=== PATIENT | female | born 1945 | race Caucasian/White ===

== ENCOUNTER 2017-01-04 23:17 | Emergency (ER) | payer MEDICARE, BC ==
[2017-01-04] MEDS ORDERED: diphenhydrAMINE 50 MG/ML SDV IVPUSH ONE (23:58)
[2017-01-04] MEDS ORDERED: methylPREDNISolone Sodium Succinate 125 MG/2 ML SDV IVPUSH ONE (23:58)
--- NOTE | 2017-01-05 00:28 | EDM.PDOC ---
<Leon Garcia - Last Filed: 01/05/17 06:45> ED HPI DIZZINESS - General Chief Complaint: Syncope Stated Complaint: VERTIGO Time Seen by Provider: 01/04/17 23:45 Source: Reports: Patient, EMS, Family Exam Limitations: Reports: No limitations - History of Present Illness INITIAL COMMENTS - FREE TEXT/NARRATIVE: 71-year-old female who has a chronic history of recurring vertigo was asymptomatic the last several days but tonight at 9:30 in the evening she had a fairly sudden onset of vertigo. She has some maneuvers as she tries that she is learning through physical therapy but they were unsuccessful so she called the ambulance. She also had some mild intermittent chest pressure over the past few weeks. She mentioned this to the ambulance crew in route so an EKG was done which was normal. Vitals were normal. She was also given 4 mg of Zofran IV. Timing/Duration: Reports: Hour(s): (Symptoms have been less than an hour) Quality: Reports: spinning, vertigo Severity: moderate Worsens With: Reports: head movement, sitting Context, Dizziness: Denies: recent illness, recent trauma, alcohol abuse, new medications Associated Symptoms: Reports: decreased ability to walk, off balance, unable to sit up - Related Data Allergies/ADRs: Allergies Allergy/AdvReac Type Severity Reaction Status Date / Time clopidogrel Allergy Unknown Rash Verified 01/05/17 00:38 erythromycin base Allergy Unknown Rash Verified 01/05/17 00:38 [Erythromycin Base] levofloxacin [From Levaquin] Allergy Muscle Verified 01/05/17 00:38 Aches Sulfa (Sulfonamide AdvReac Unknown Rash Verified 01/05/17 00:38 Antibiotics) Home Meds: Home Meds Albuterol [Ventolin HFA] 2 puff IH ASDIRECTED PRN 01/05/17 [History] Ascorbic Acid [Vitamin C] 500 mg PO BID 01/05/17 [History] Aspirin [Halfprin] 81 mg PO DAILY 01/05/17 [History] Calcium Carbonate [Calcium] 1,000 mg PO DAILY 01/05/17 [History] Cholecalciferol (Vitamin D3) [Vitamin D3] 1,000 unit PO DAILY 01/05/17 [History] Levothyroxine 75 mcg PO ACBREAKFAST 01/05/17 [History] Multivitamin-Min/Iron/FA/Vit K [Multi-Day Plus Minerals Tablet] 1 each PO DAILY 01/05/17 [History] [place]-3/DHA/Epa/Fish Oil [[place]-3 EC Softgel] 1 each PO DAILY 01/05/17 [History] [place]-3/DHA/Epa/Fish Oil [[place]-3 Fish Oil 1,000 MG Sfgl] 1,000 mg PO DAILY [History] Pindolol [Visken] 5 mg PO DAILY 01/05/17 [History] Triamcinolone Acetonide [Triamcinolone Acetonide 0.1% Crm] 15 gm TOP BID PRN [History] Vitamin B Complex/Folic Acid [Vitamin B-50 Complex] 0.4 mg PO DAILY 01/05/17 [ History] Past Medical History - Past Health History Medical/Surgical History: Denies Medical/Surgical History Other Cardiovascular History: patch on heart december 2012 Other Genitourinary History: pt ? having UTI Other OB/BYN History: hx of hystectomy - Past Surgical History Other Cardiovascular Surgeries/Procedures: patch on heart 2012 Social & Family History - Tobacco Use Smoking Status *Q: Never Smoker ED ROS GENERAL - Review of Systems Review Of Systems: See Below Constitutional: Reports: malaise. Denies: fever, chills Respiratory: Denies: Shortness of Breath Cardiovascular: Reports: Chest pain (She has some intermittent upper abdominal and lower chest pressure that lasts 1 to 2 minutes several times daily) Endocrine: Denies: fatigue GI/Abdominal: Reports: Nausea, Vomiting. Denies: Abdominal pain : Reports: no symptoms Neurological: Reports: Dizziness. Denies: Headache, Seizure, Syncope Psychiatric: Reports: No symptoms ED EXAM, DIZZINESS - Physical Exam Exam: See Below Exam Limited By: No limitations General Appearance: alert, mild distress (Looks very uncomfortable, shielding her eyes) Eye Exam: bilateral eye: other ( I can not produce any nystagmus with lateral gaze) Throat/Mouth: Normal inspection Head Exam: atraumatic Vertigo: worsens with head to R Neck: normal inspection Respiratory/Chest: no respiratory distress, lungs clear Cardiovascular: regular rate, rhythm GI/Abdominal: soft, non tender Neurological: alert Psychiatric: normal affect, normal mood Skin Exam: Warm, Dry Course - Orders/Labs/Meds Orders: Active Orders 24 hr Category Date Time Status EKG Documentation Completion [RC] ASDIRECTED Care 01/04/17 23:41 Active EKG 12 Lead [EK] Routine Ther 01/04/17 23:41 Ordered Labs: Laboratory Tests 01/04/17 01/04/17 Range/Units 23:41 23:41 WBC 6.0 (4.5-11.0) K/uL RBC 4.56 (3.30-5.50) M/uL Hgb 13.8 (12.0-15.0) g/dL Hct 39.7 (36.0-48.0) % MCV 87 (80-98) fL MCH 30 (27-31) pg MCHC 35 (32-36) % Plt Count 252 (150-400) K/uL Neut % (Auto) 56 (36-66) % Lymph % (Auto) 34 (24-44) % [place] % (Auto) 8 H (2-6) % Eos % (Auto) 2 (2-4) % Baso % (Auto) 0 (0-1) % Sodium 142 (140-148) mmol/L Potassium 3.5 L (3.6-5.2) mmol/L Chloride 105 (100-108) mmol/L Carbon Dioxide 24 (21-32) mmol/L Anion Gap 16.5 H (5.0-14.0) mmol/L BUN 21 H (7-18) mg/dL Creatinine 1.1 H (0.6-1.0) mg/dL Est Cr Clr Drug Dosing TNP Estimated GFR (MDRD) 49 L (>60) Glucose 122 H (74-106) mg/dL Calcium 8.6 (8.5-10.1) mg/dL Troponin I < 0.017 (0.000-0.056) ng/mL Meds: Medications Discontinued Medications Generic Name Dose Route Start Last Admin Trade Name Freq PRN Reason Stop Dose Admin Diphenhydramine HCl 25 mg 01/04/17 23:58 01/05/17 00:22 Benadryl IVPUSH 01/04/17 23:59 25 mg ONETIME ONE Administration Methylprednisolone Sodium Succinate 62.5 mg 01/04/17 23:58 01/05/17 00:19 Solu-Medrol IVPUSH 01/04/17 23:59 62.5 mg ONETIME ONE Administration - Re-Assessments/Exams Free Text/Narrative Re-Assessment/Exam: 01/05/17 00:27 A second EKG was done which was unremarkable labs were drawn and an Eppley maneuver was attempted which was unsuccessful. She was then given 62.5 mg Solu- Medrol IV and 25 mg of Benadryl IV, CBC BMP and troponin were drawn. Labs were unremarkable. 01/05/17 06:45 Patient slept soundly for 3 hours, when awoke was feeling better and was able to go to the bathroom without assistance but still felt very anxious about her symptoms returning without a physical therapy treatment. She did not want to be discharged until she had a chance to be seen by physical therapy. Apparently she is well-known by Dr. Clay and Dr. Mackenzie, both are coming on shift in the next hour and I will ask them to see if they can contact physical therapy for a quick assessment. Departure - Departure Disposition: Home, Self-Care 01 Clinical Impression: Vertigo Referrals: Mery Gracia MD [Primary Care Provider] - Forms: ED Department Discharge Care Plan Goals: low activity, gradually increase activity. cont same meds. <Dinah Mackenzie - Last Filed: 01/05/17 08:56> Course - Re-Assessments/Exams Free Text/Narrative Re-Assessment/Exam: 01/05/17 08:53 Pt came and worked with the pt and she is feeling better. She was able to eat breakfast. She is able to be up and about without difficulty Departure - Departure Time of Disposition: 08:55 Condition: fair
== END 2017-01-05 09:28 | disposition home or self-care (01) ==
LOC: JP.ED 23:17
DX: R42 Dizziness and giddiness (principal); Z79.82 Long term (current) use of aspirin; Z79.899 Other long term (current) drug therapy; Z90.710 Acquired absence of both cervix and uterus; Z88.1 Allergy status to other antibiotic agents; Z88.2 Allergy status to sulfonamides; Z88.8 Allergy status to other drugs, medicaments and biological substances
CPT/HCPCS: 36415; 80048; 84484; 85025; 93005; 96374; 96375; 99284; J1200; J2930; 93010

== ENCOUNTER 2017-07-14 18:01 | Emergency (ER) | payer BC, MEDICARE, OTHER ==
[2017-07-14 20:05] VITALS: BP 146/82
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
== END 2017-07-14 21:05 | disposition home or self-care (01) ==
LOC: JP.ED 18:01
DX: S46.911A Strain of unspecified muscle, fascia and tendon at shoulder and upper arm level, right arm, initial encounter (principal); M19.90 Unspecified osteoarthritis, unspecified site; F32.9 Major depressive disorder, single episode, unspecified; E03.9 Hypothyroidism, unspecified; Z90.49 Acquired absence of other specified parts of digestive tract; Z87.440 Personal history of urinary (tract) infections; Z90.710 Acquired absence of both cervix and uterus; Z79.82 Long term (current) use of aspirin; Z79.899 Other long term (current) drug therapy; Z88.2 Allergy status to sulfonamides; Z88.1 Allergy status to other antibiotic agents; Z88.8 Allergy status to other drugs, medicaments and biological substances; V89.2XXA Person injured in unspecified motor-vehicle accident, traffic, initial encounter; Y92.410 Unspecified street and highway as the place of occurrence of the external cause
CPT/HCPCS: 99283

== ENCOUNTER 2018-03-30 20:37 | Emergency (ER) | payer MEDICARE, BC ==
[2018-03-30 21:08] VITALS: BP 154/78
--- NOTE | 2018-03-30 21:19 | EDM.PDOC ---
ED HPI GENERAL MEDICAL PROBLEM - General Chief Complaint: Abdominal Pain Stated Complaint: PAIN ON LEFT SIDE BELOW THE RIBS Time Seen by Provider: 03/30/18 21:17 Source of Information: Reports: Patient, Family, RN Notes Reviewed History Limitations: Reports: No Limitations - History of Present Illness INITIAL COMMENTS - FREE TEXT/NARRATIVE: 72-year-old female resents to the emergency department today complaint of abdominal pain, she states the pain is in the epigastric left upper quadrant region has been ongoing for 2 days she's had poor appetite but no other symptoms nausea vomiting chest pain shortness of breath no other or GI symptoms does have a history of surgical procedures of hysterectomy and appendectomy - Related Data Allergies Allergy/AdvReac Type Severity Reaction Status Date / Time clopidogrel Allergy Unknown Rash Verified 03/30/18 21:02 erythromycin base Allergy Unknown Rash Verified 03/30/18 21:02 [Erythromycin Base] levofloxacin [From Levaquin] Allergy Muscle Verified 03/30/18 21:02 Aches Sulfa (Sulfonamide AdvReac Unknown Rash Verified 03/30/18 21:02 Antibiotics) Home Meds: Home Meds Albuterol [Ventolin HFA] 2 puff IH ASDIRECTED PRN 01/05/17 [History] Ascorbic Acid [Vitamin C] 500 mg PO BID 01/05/17 [History] Aspirin [Halfprin] 81 mg PO DAILY 01/05/17 [History] Calcium Carbonate [Calcium] 1,000 mg PO DAILY 01/05/17 [History] Cholecalciferol (Vitamin D3) [Vitamin D3] 1,000 unit PO DAILY 01/05/17 [History] Levothyroxine 75 mcg PO ACBREAKFAST 01/05/17 [History] Multivitamin-Min/Iron/FA/Vit K [Multi-Day Plus Minerals Tablet] 1 each PO DAILY 01/05/17 [History] [place]-3/DHA/Epa/Fish Oil [[place]-3 EC Softgel] 1 each PO DAILY 01/05/17 [History] [place]-3/DHA/Epa/Fish Oil [[place]-3 Fish Oil 1,000 MG Sfgl] 1,000 mg PO DAILY [History] Pindolol [Visken] 5 mg PO DAILY 01/05/17 [History] Triamcinolone Acetonide [Triamcinolone Acetonide 0.1% Crm] 15 gm TOP BID PRN [History] Vitamin B Complex/Folic Acid [Vitamin B-50 Complex] 0.4 mg PO DAILY 01/05/17 [ History] Past Medical History HEENT History: Reports: Impaired Vision Cardiovascular History: Reports: Other (See Below) Other Cardiovascular History: ASD closure Genitourinary History: Reports: UTI, Recurrent Other Genitourinary History: pt ? 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: hx of hystectomy Musculoskeletal History: Reports: Arthritis Neurological History: Reports: Migraines, Vertigo Psychiatric History: Reports: Depression Endocrine/Metabolic History: Reports: Hypothyroidism Hematologic History: Reports: Blood Transfusion(s) - Infectious Disease History Infectious Disease History: Reports: Chicken Pox, Measles, Mumps, Rubella - Past Surgical History HEENT Surgical History: Reports: Detached Retina Other Cardiovascular Surgeries/Procedures: ASD closure- 2012 GI Surgical History: Reports: Appendectomy, Colonoscopy Female Surgical History: Reports: Hysterectomy Social & Family History - Tobacco Use Smoking Status *Q: Never Smoker - Caffeine Use Caffeine Use: Reports: None ED ROS GENERAL - Review of Systems Review Of Systems: See Below Constitutional: Reports: No Symptoms HEENT: Reports: No Symptoms Respiratory: Reports: No Symptoms Cardiovascular: Reports: No Symptoms GI/Abdominal: Reports: Abdominal Pain, Flatus. Denies: Constipation, Diarrhea, Nausea, Vomiting : Reports: No Symptoms Musculoskeletal: Reports: No Symptoms Skin: Reports: No Symptoms Neurological: Reports: No Symptoms ED EXAM, GI/ABD - Physical Exam Exam: See Below Text/Narrative:: General: Female not in any distress, alert and oriented x3 HEENT: head is atraumatic normocephalic, eyes pupils equal round reactive to light, sclera clear no conjunctivitis appreciated. Ears tympanic membranes clear and ruiz landmarks and light reflex are present bilaterally canals are clear. Nose no septal deviation, nares are clear, no blood present. Mouth mucosa is moist and pink no erythema or exudate noted in soft palate, tongue is midline uvula is midline, dentition is intact. Neck: Supple no thyromegaly no tracheal deviation. Nodes: Cervical nodes subclavicular nodes nontender no palpable lymphadenopathy noted. Lungs: clear to auscultation bilaterally with symmetrical respirations, no adventitious noise appreciated. CV: Regular rate and rhythm S1 and S2 appreciated no murmurs rubs or gallops noted. Abdomen: Soft, mild tenderness epigastric region, no palpable masses or organomegaly appreciated, no distention no guarding bowel sounds are present, . Neuro: Cranial nerves II through XII grossly intact Skin: Warm and dry, intact Extremities: No lower extremity edema appreciated, Course - Vital Signs Last Recorded V/S: Last Vital Signs Temp 96.6 F 03/30/18 21:07 Pulse 81 03/30/18 21:07 Resp 14 03/30/18 21:07 BP 154/78 H 03/30/18 21:07 Pulse Ox 97 03/30/18 21:07 - Orders/Labs/Meds Orders: Active Orders 24 hr Category Date Time Status Peripheral IV Care [RC] . DIRECTED Care 03/30/18 23:25 Active Abdomen Pelvis w Cont [CT] Stat Exams 03/30/18 23:26 Taken CULTURE URINE [RM] Urgent Lab 03/30/18 23:00 Received UA W/MICROSCOPIC [URIN] Urgent Lab 03/30/18 21:16 Ordered Iopamidol [Isovue-300 (61%)] Med 03/30/18 23:45 Active 100 ml IV . DIRECTED Sodium Chloride 0.9% [Normal Saline] 80 ml Med 03/30/18 23:45 Active IV ASDIRECTED Sodium Chloride 0.9% [Saline Flush] Med 03/30/18 23:24 Active 10 ml FLUSH ASDIRECTED PRN Peripheral IV Insertion Adult [OM.PC] Urgent Oth 03/30/18 23:24 Ordered Medication Orders Sodium Chloride (Normal Saline) 80 mls @ 3 mls/sec IV ASDIRECTED SUELLEN Last Admin: 03/30/18 23:53 Dose: 3 mls/sec Iopamidol (Isovue-300 (61%)) 100 ml IV . DIRECTED SUELLEN Last Admin: 03/30/18 23:53 Dose: 100 ml Sodium Chloride (Saline Flush) 10 ml FLUSH ASDIRECTED PRN PRN Reason: Keep Vein Open Last Admin: 03/30/18 23:53 Dose: 10 ml Labs: Laboratory Tests 03/30/18 03/30/18 03/30/18 Range/Units 21:16 21:28 21:28 WBC 8.9 (4.5-11.0) K/uL RBC 4.49 (3.30-5.50) M/uL Hgb 13.6 (12.0-15.0) g/dL Hct 39.6 (36.0-48.0) % MCV 88 (80-98) fL MCH 30 (27-31) pg MCHC 34 (32-36) % Plt Count 252 (150-400) K/uL Neut % (Auto) 66 (36-66) % Lymph % (Auto) 21 L (24-44) % [place] % (Auto) 11 H (2-6) % Eos % (Auto) 2 (2-4) % Baso % (Auto) 0 (0-1) % Sodium 137 L (140-148) mmol/L Potassium 4.0 (3.6-5.2) mmol/L Chloride 103 (100-108) mmol/L Carbon Dioxide 26 (21-32) mmol/L Anion Gap 12.0 (5.0-14.0) mmol/L BUN 15 (7-18) mg/dL Creatinine 0.9 (0.6-1.0) mg/dL Est Cr Clr Drug Dosing 50.23 mL/min Estimated GFR (MDRD) > 60 (>60) Glucose 100 (74-106) mg/dL Lactic Acid (0.4-2.0) mmol/L Calcium 8.9 (8.5-10.1) mg/dL Total Bilirubin 0.7 (0.2-1.0) mg/dL AST 18 (15-37) U/L ALT 27 (12-78) U/L Alkaline Phosphatase 68 (46-116) U/L Troponin I < 0.017 (0.000-0.056) ng/mL Total Protein 7.0 (6.4-8.2) g/dL Albumin 3.3 L (3.4-5.0) g/dL Globulin 3.7 H (2.3-3.5) g/dL Albumin/Globulin Ratio 0.9 L (1.2-2.2) Lipase 102 (73-393) U/L Urine Color Yellow Urine Appearance Slightly cloudy Urine pH 7.0 (4.5-8.0) Ur Specific [place] 1.010 (1.008-1.030) Urine Protein Negative (NEGATIVE) mg/dL Urine Glucose (UA) Normal (NEGATIVE) mg/dL Urine Ketones Negative (NEGATIVE) mg/dL Urine Occult Blood Negative (NEGATIVE) Urine Nitrite Negative (NEGATIVE) Urine Bilirubin Negative (NEGATIVE) Urine Urobilinogen Normal (NORMAL) mg/dL Ur Leukocyte Esterase Moderate (NEGATIVE) Urine RBC 0-5 (0-5) Urine WBC 5-10 H (0-5) Ur Epithelial Cells Few Amorphous Sediment Not seen Urine Bacteria Many Urine Mucus Not seen 03/30/18 Range/Units 21:28 WBC (4.5-11.0) K/uL RBC (3.30-5.50) M/uL Hgb (12.0-15.0) g/dL Hct (36.0-48.0) % MCV (80-98) fL MCH (27-31) pg MCHC (32-36) % Plt Count (150-400) K/uL Neut % (Auto) (36-66) % Lymph % (Auto) (24-44) % [place] % (Auto) (2-6) % Eos % (Auto) (2-4) % Baso % (Auto) (0-1) % Sodium (140-148) mmol/L Potassium (3.6-5.2) mmol/L Chloride (100-108) mmol/L Carbon Dioxide (21-32) mmol/L Anion Gap (5.0-14.0) mmol/L BUN (7-18) mg/dL Creatinine (0.6-1.0) mg/dL Est Cr Clr Drug Dosing mL/min Estimated GFR (MDRD) (>60) Glucose (74-106) mg/dL Lactic Acid 1.0 (0.4-2.0) mmol/L Calcium (8.5-10.1) mg/dL Total Bilirubin (0.2-1.0) mg/dL AST (15-37) U/L ALT (12-78) U/L Alkaline Phosphatase (46-116) U/L Troponin I (0.000-0.056) ng/mL Total Protein (6.4-8.2) g/dL Albumin (3.4-5.0) g/dL Globulin (2.3-3.5) g/dL Albumin/Globulin Ratio (1.2-2.2) Lipase (73-393) U/L Urine Color Urine Appearance Urine pH (4.5-8.0) Ur Specific [place] (1.008-1.030) Urine Protein (NEGATIVE) mg/dL Urine Glucose (UA) (NEGATIVE) mg/dL Urine Ketones (NEGATIVE) mg/dL Urine Occult Blood (NEGATIVE) Urine Nitrite (NEGATIVE) Urine Bilirubin (NEGATIVE) Urine Urobilinogen (NORMAL) mg/dL Ur Leukocyte Esterase (NEGATIVE) Urine RBC (0-5) Urine WBC (0-5) Ur Epithelial Cells Amorphous Sediment Urine Bacteria Urine Mucus Meds: Medications Generic Name Dose Route Start Last Admin Trade Name Freq PRN Reason Stop Dose Admin Sodium Chloride 80 mls @ 3 mls/sec 03/30/18 23:45 03/30/18 23:53 Normal Saline IV 3 mls/sec ASDIRECTED SUELLEN Administration Iopamidol 100 ml 03/30/18 23:45 03/30/18 23:53 Isovue-300 (61%) IV 100 ml . DIRECTED SUELLEN Administration Sodium Chloride 10 ml 03/30/18 23:24 03/30/18 23:53 Saline Flush FLUSH 10 ml ASDIRECTED PRN Administration Keep Vein Open Discontinued Medications Generic Name Dose Route Start Last Admin Trade Name Freq PRN Reason Stop Dose Admin Lactated Ringer's 1,000 mls @ 999 mls/hr 03/30/18 23:24 03/30/18 23:54 Ringers, Lactated IV 03/31/18 00:24 999 mls/hr BOLUS ONE Administration Departure - Departure Time of Disposition: 00:56 Disposition: Home, Self-Care 01 Condition: Fair Clinical Impression: Left upper quadrant abdominal mass - Discharge Information Referrals: PCP,None [Primary Care Provider] - Forms: ED Department Discharge Additional Instructions: Please call to the clinic on Sunday for an appointment time with Dr. Salazar, call return to the emergency department worsening of symptoms - My Orders Last 24 Hours: My Active Orders 03/30/18 21:16 UA W/MICROSCOPIC [URIN] Urgent 03/30/18 23:00 CULTURE URINE [RM] Urgent 03/30/18 23:24 Sodium Chloride 0.9% [Saline Flush] 10 ml FLUSH ASDIRECTED PRN Peripheral IV Insertion Adult [OM.PC] Urgent 03/30/18 23:25 Peripheral IV Care [RC] . DIRECTED 03/30/18 23:26 Abdomen Pelvis w Cont [CT] Stat 03/30/18 23:45 Iopamidol [Isovue-300 (61%)] 100 ml IV . DIRECTED Sodium Chloride 0.9% [Normal Saline] 80 ml IV ASDIRECTED - Assessment/Plan Last 24 Hours: My Active Orders 03/30/18 21:16 UA W/MICROSCOPIC [URIN] Urgent 03/30/18 23:00 CULTURE URINE [RM] Urgent 03/30/18 23:24 Sodium Chloride 0.9% [Saline Flush] 10 ml FLUSH ASDIRECTED PRN Peripheral IV Insertion Adult [OM.PC] Urgent 03/30/18 23:25 Peripheral IV Care [RC] . DIRECTED 03/30/18 23:26 Abdomen Pelvis w Cont [CT] Stat 03/30/18 23:45 Iopamidol [Isovue-300 (61%)] 100 ml IV . DIRECTED Sodium Chloride 0.9% [Normal Saline] 80 ml IV ASDIRECTED Plan: Assessment Acuity = acute Site and laterality = left upper quadrant mass Etiology = unclear etiology Manifestations = abdominal pain Location of injury = Home Lab values = CBC, CMP, urinalysis unremarkable CT scan describes a mass above Plan I did review lab work and CT scan results with her I reviewed options with her she would like to follow-up with Dr. Salazar general surgery for discussion of options for diagnosis, therefore she will call to the clinic for an appointment time on Sunday This note was dictated using [employer] voice recognition software please call with any questions on syntax or grammar.
[2018-03-30] MEDS ORDERED: Lactated Ringers 1,000 ML IV ONE (23:24)
[2018-03-30] MEDS ORDERED: Sodium Chloride 0.9% 10 ML Syringe FLUSH PRN (23:24)
[2018-03-30] MEDS ORDERED: Sodium Chloride 0.9% 80 ML IV SCH (23:45)
[2018-03-30] MEDS ORDERED: Iopamidol 612 MG/ML 100 ML Bottle IV SCH (23:45)
== END 2018-03-31 01:00 | disposition home or self-care (01) ==
LOC: JP.ED 20:37
DX: R10.12 Left upper quadrant pain (principal); E03.9 Hypothyroidism, unspecified; Z88.2 Allergy status to sulfonamides; Z88.1 Allergy status to other antibiotic agents; Z88.8 Allergy status to other drugs, medicaments and biological substances; Z79.82 Long term (current) use of aspirin; Z79.899 Other long term (current) drug therapy
CPT/HCPCS: 36415; 74177; 80053; 81001; 83605; 83690; 84484; 85025; 87086; 87088; 87186; 96360; 99283; 99284; J7030; J7050; J7120; Q9967

== ENCOUNTER 2018-04-02 07:53 | Day surgery (SDC) | payer MEDICARE, BC ==
[2018-04-02] MEDS ORDERED: Dextrose 5%-Lactated Ringers 1,000 ML IV SCH (08:30)
[2018-04-02] MEDS ORDERED: Propofol 200 MG/20 ML SDV ONE (09:01)
[2018-04-02] MEDS ORDERED: Glycopyrrolate 0.2 MG/ML 2 ML SDV IVPUSH ONE (09:30)
[2018-04-02 11:05] VITALS: BP 138/83
--- NOTE | 2018-04-03 14:42 | OR ---
DATE OF PROCEDURE: 04/02/2018 PREOPERATIVE DIAGNOSIS: Large perigastric mass. POSTOPERATIVE DIAGNOSES: 1. Gastric ulcer along mid-greater curvature consistent with adjacent gastric mass. 2. Mild antral gastritis. OPERATIVE PROCEDURE: Upper GI endoscopy with antral biopsies for CLOtest. ANESTHESIA: IV sedation. INDICATION FOR PROCEDURE: The patient presented over the weekend in the emergency room with upper abdominal pain and was noted to have a mass in the range of 6 to 8 cm, located along the area to the left of the mid-greater curvature of the stomach. Radiologically, this is suspicious for a gastrointestinal stromal tumor. The only viscera that had directly lysed on, is the stomach at that level. An upper endoscopy is to be performed to evaluate the situation. Potential risks including bleeding and perforation were discussed, and the patient wishes to proceed. DETAILS OF PROCEDURE: The patient was taken to the operating room and placed in a left lateral decubitus position. IV sedation was administered, after which the upper GI endoscope was passed orally through the length of the stomach and into the pyloric sphincter and roughly second portion of the duodenum. Findings included normal esophagus and EG junction. Within the stomach, there was some scattered old blood and medial pressure was obvious on the greater curvature of the stomach and consistent with what was seen on the CT scan. There was a central area of ulcer present also in that area, suggestive of the mass that was seen on the CT scan likely arising from the stomach or perhaps eroding into it. Because of the bleeding and the fact that the biopsy would not change the management at this point, no biopsy was obtained there. The patient did have some mild antral gastritis and biopsy was obtained there for CLOtest for H. pylori. Minimal bleeding from the biopsy site was seen, and the procedure then concluded. The patient was taken to the recovery room in a satisfactory condition. Joseph Salazar MD Job #: [id number]
== END 2018-04-02 11:29 | disposition home or self-care (01) ==
LOC: JP.SDS 07:53
PROVIDERS: ATTEND Surgery
DX: K25.9 Gastric ulcer, unspecified as acute or chronic, without hemorrhage or perforation (principal); K29.70 Gastritis, unspecified, without bleeding; K31.89 Other diseases of stomach and duodenum; J45.909 Unspecified asthma, uncomplicated
CPT/HCPCS: 36415; 43239; 86850; 86900; 86901; 87081; J2704; J7042; J3490

== ENCOUNTER 2018-04-05 09:15 | Inpatient (IN) | payer MEDICARE, BC ==
[~2018-04-05 09:15] MED LIST: Dexamethasone 4 MG/ML SDV ONE; Glycopyrrolate 0.2 MG/ML 5 ML MDV ONE; Neostigmine Methylsulfate 1 MG/ML 5 ML Syringe ONE; Ondansetron 4 MG/2 ML SDV ONE; Propofol 200 MG/20 ML SDV ONE; Rocuronium 50 MG/5 ML Vial ONE; Succinylcholine 200 MG/10 ML MDV ONE
[2018-04-05] MEDS ORDERED: Dextrose 5%-Lactated Ringers 1,000 ML IV SCH ×2 (09:41→17:15)
[2018-04-05] MEDS ORDERED: Acetaminophen 500 MG Tab PO SCH (09:45)
[2018-04-05] MEDS ORDERED: Scopolamine 1.5 MG Transdermal Patch TOP SCH (10:15)
[2018-04-05] MEDS ORDERED: Ropivacaine 36 ML, Dexamethasone 8 MG, EPINEPHrine 0.4 MG, Sodium Chloride 0.9% 41.6 ML NERVRT SCH ×4 (10:30)
[2018-04-05] MEDS ORDERED: Ketamine 500 MG/5 ML MDV IV SCH (10:30)
[2018-04-05] MEDS ORDERED: Albuterol/Ipratropium 3.0-0.5 MG/3 ML Neb Soln NEB SCH (10:45)
[2018-04-05] MEDS ORDERED: cefOXitin 2 GM in Sodium Chloride 0.9% 50 ML IV ONE (11:30)
[2018-04-05] MEDS ORDERED: Bupivacaine 0.5%/EPINEPHrine 1:200,000 50 ML MDV ONE (12:05)
[2018-04-05] MEDS ORDERED: Meropenem 500 MG SDV ONE (12:05)
[2018-04-05] MEDS ORDERED: Scopolamine 1.5 MG Transdermal Patch ONE (13:58)
[2018-04-05] MEDS ORDERED: Lactated Ringers 1,000 ML ONE (14:41)
[2018-04-05] MEDS ORDERED: Succinylcholine 200 MG/10 ML MDV ONE (15:05)
[2018-04-05] MEDS ORDERED: Naloxone 0.4 MG/ML SDV IVPUSH PRN (15:30)
[2018-04-05] MEDS ORDERED: HYDROmorphone/Normal Saline 15 MG/30 ML PCA IV PRN (15:30)
[2018-04-05] MEDS: Ondansetron 4 MG/2 ML SDV IVPUSH PRN (17:29)
[2018-04-05] MEDS ORDERED: diphenhydrAMINE 50 MG/ML SDV IVPUSH PRN (18:00)
[2018-04-05] MEDS ORDERED: hydrOXYzine HCl 100 MG/2 ML SDV IM PRN (18:00)
[2018-04-05] MEDS ORDERED: Labetalol 20 MG/4 ML Syringe IVPUSH PRN (18:00)
[2018-04-05] MEDS ORDERED: Albuterol/Ipratropium 3.0-0.5 MG/3 ML Neb Soln INH PRN (18:00)
[2018-04-05] MEDS ORDERED: Metoclopramide 10 MG/2 ML SDV IVPUSH PRN (18:00)
[2018-04-05] MEDS: Acetaminophen Soln 650 MG/20.3 ML UD Cup PO SCH (18:18)
[2018-04-05] MEDS: Pantoprazole 40 MG Vial IVPUSH SCH (18:20)
[2018-04-05] MEDS: cefOXitin 2 GM in Sodium Chloride 0.9% 50 ML IV SCH (18:34)
[2018-04-05] MEDS: Heparin Sodium 5,000 Units/ML Vial SUBCUT SCH (19:22)
[2018-04-05] MEDS: Albuterol/Ipratropium 3.0-0.5 MG/3 ML Neb Soln INH SCH (20:31)
[2018-04-05] MEDS: MVI, Adult with Vitamin K 10 ML, Thiamine 200 MG, Chromium/Copper/Mang/Selen/Zn 1 ML in... IV SCH ×4 (21:39)
[2018-04-06] MEDS: Acetaminophen Soln 650 MG/20.3 ML UD Cup PO SCH ×4 (00:27→17:24)
[2018-04-06] MEDS: cefOXitin 2 GM in Sodium Chloride 0.9% 50 ML IV SCH ×4 (00:27→17:30)
[2018-04-06] MEDS ORDERED: Iohexol 647 MG/ML 50 ML SDV PO PRN (03:03)
[2018-04-06] MEDS: Albuterol/Ipratropium 3.0-0.5 MG/3 ML Neb Soln INH SCH ×4 (07:26→23:15)
[2018-04-06] MEDS: Heparin Sodium 5,000 Units/ML Vial SUBCUT SCH ×2 (08:34→20:08)
[2018-04-06] MEDS: SCOPOLAMINE PATCH CHECK TOP SCH (08:36)
[2018-04-06] MEDS: Dextrose 5%-Lactated Ringers 1,000 ML IV SCH (09:38)
[2018-04-06] MEDS ORDERED: Dextrose 5%-Lactated Ringers 1,000 ML IV SCH (09:45)
[2018-04-06] MEDS: Ondansetron 4 MG/2 ML SDV IVPUSH PRN (11:09)
[2018-04-06] MEDS: MVI, Adult with Vitamin K 10 ML, Thiamine 200 MG, Chromium/Copper/Mang/Selen/Zn 1 ML in... IV SCH ×4 (17:23)
[2018-04-06] MEDS: Pantoprazole 40 MG Vial IVPUSH SCH (17:30)
[2018-04-07] MEDS: Acetaminophen Soln 650 MG/20.3 ML UD Cup PO SCH ×5 (02:37→23:30)
[2018-04-07] MEDS: Ondansetron 4 MG/2 ML SDV IVPUSH PRN (02:54)
[2018-04-07] MEDS ORDERED: Meropenem 500 MG SDV ONE (06:34)
[2018-04-07] MEDS ORDERED: Bupivacaine 0.5% 50 ML MDV ONE (06:34)
[2018-04-07] MEDS ORDERED: Lidocaine 1% with EPINEPHrine 1:100,000 50 ML MDV ONE (06:34)
[2018-04-07] MEDS ORDERED: Propofol 200 MG/20 ML SDV ONE (07:12)
[2018-04-07] MEDS ORDERED: fentaNYL 100 MCG/2 ML SDV ONE (07:12)
[2018-04-07] MEDS: Albuterol/Ipratropium 3.0-0.5 MG/3 ML Neb Soln INH SCH (07:24)
[2018-04-07] MEDS ORDERED: Ropivacaine 35 ML, Dexamethasone 8 MG, EPINEPHrine 0.4 MG, Sodium Chloride 0.9% 42.6 ML NERVRT SCH ×4 (07:30)
[2018-04-07] MEDS: Heparin Sodium 5,000 Units/ML Vial SUBCUT SCH ×2 (08:55→20:29)
[2018-04-07] MEDS: SCOPOLAMINE PATCH CHECK TOP SCH (08:56)
[2018-04-07] MEDS ORDERED: Cyanocobalamin (Vitamin B12) 1,000 MCG/ML SDV IM ONE (09:00)
[2018-04-07] MEDS ORDERED: Albuterol 8 GM Inhaler INH PRN (09:01)
[2018-04-07] MEDS ORDERED: HYDROmorphone 2 MG Tab PO PRN (09:02)
[2018-04-07] MEDS: Dextrose 5%-Lactated Ringers 1,000 ML IV SCH ×2 (09:04→23:30)
[2018-04-07] MEDS: MVI, Adult with Vitamin K 10 ML, Thiamine 200 MG, Chromium/Copper/Mang/Selen/Zn 1 ML in... IV SCH ×4 (17:30)
[2018-04-07] MEDS: Pantoprazole 40 MG Vial IVPUSH SCH (18:21)
[2018-04-08] MEDS: Dextrose 5%-Lactated Ringers 1,000 ML IV SCH (05:05)
[2018-04-08] MEDS: Acetaminophen Soln 650 MG/20.3 ML UD Cup PO SCH ×3 (05:08→17:34)
[2018-04-08] MEDS ORDERED: Magnesium Hydroxide 400 MG/5 ML Susp 30 ML Cup PO PRN (08:01)
[2018-04-08] MEDS: Heparin Sodium 5,000 Units/ML Vial SUBCUT SCH ×2 (08:03→19:28)
[2018-04-08] MEDS ORDERED: Bisacodyl 5 MG Tab PO PRN (08:03)
[2018-04-08] MEDS ORDERED: Dextrose 5%-Lactated Ringers 1,000 ML IV SCH (08:15)
[2018-04-08] MEDS ORDERED: Bisacodyl 5 MG Tab PO ONE (09:00)
[2018-04-08] MEDS ORDERED: Magnesium Hydroxide 400 MG/5 ML Susp 30 ML Cup PO ONE (09:00)
--- NOTE | 2018-04-08 09:31 | CR ---
UGI wo KUB HISTORY: eval R -Y GBP FINDINGS: After administration of oral contrast, upright views were obtained. Post operative changes gastric bypass. Surgical drain in place. No evidence for leak. Contrast passes freely into proximal s mall bowel loops. Small amount of free air under the right hemidiaphragm. IMPRESSION: No evidence for leak or obstruction. Small amount of free air under the right hemidiaphra gm likely postoperative in nature though clinical follow-up recommended.
[2018-04-08] MEDS: Pindolol 10 MG Tab PO SCH (10:32)
--- NOTE | 2018-04-08 12:55 | PN ---
DATE OF SERVICE: 04/06/2018 The patient has been afebrile with stable vital signs, status post resection of a large perigastric mass proximal esophagogastrectomy with Layla-en-Y reconstruction. Overall, she has done well. Her pain control seems to be fairly good and her upper GI x-ray looks good. This morning, we will go to a step-2 diet without solids today. Otherwise, we will plan to proceed with the delayed primary closure tomorrow and continue to maximize activity and work with pulmonary toilet. Joseph Salazar MD Job #: [id number]
--- NOTE | 2018-04-08 13:41 | PN ---
DATE OF SERVICE: 04/07/2018 The patient has been afebrile with stable vital signs. Oral intake has been fairly good. She is still having some nausea and jitteriness with the DuoNeb. We will discontinue those and just go with her usual albuterol inhaler on a p.r.n. basis. The patient underwent closure of the incision without incident and we will restart the step-2 diet without solids, have Dietary see the patient to switch over to oral pain medication today. She may be ready for discharge home tomorrow. Joseph Salazar MD Job #: [id number]
--- NOTE | 2018-04-08 14:19 | PN ---
DATE OF SERVICE: 04/08/2018 The patient has been afebrile with stable vital signs. Oral intake was just under a liter. She has not moved her bowels as of yet. I think we will work with Dietary today and tomorrow. Likely be discharged home tomorrow. She should stay on a step-2 type diet for around 2 weeks postoperatively. We gave her some milk of magnesia as well as Dulcolax oral tablet this morning, and she will likely be ready for discharge home tomorrow. Joseph Salazar MD Job #: [id number]
[2018-04-08] MEDS: Pantoprazole 40 MG Vial IVPUSH SCH (17:34)
[2018-04-09] MEDS: Acetaminophen Soln 650 MG/20.3 ML UD Cup PO SCH ×2 (01:34→05:03)
[2018-04-09 07:29] VITALS: BP 130/59
[2018-04-09] MEDS: Heparin Sodium 5,000 Units/ML Vial SUBCUT SCH (07:50)
[2018-04-09] MEDS: Pindolol 10 MG Tab PO SCH (10:23)
--- NOTE | 2018-04-11 13:21 | DISCH ---
FINAL DIAGNOSES: 1. 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 2. Esophageal stricture. SECONDARY DIAGNOSES: 1. History of asthma. 2. History of mitral regurgitation. 3. History of percutaneous catheter closure of the ASD. OPERATIVE PROCEDURE: This was done on 04/05/2018, 1. Exploratory laparotomy with resection of a large mass adherent to the greater curvature of stomach. 2. Esophagogastrectomy with Layla-en-Y esophagojejunostomy. 3. Excision of peritoneal nodule involving small bowel mesentery and the esophageal dilation. HOSPITAL COURSE: This is a 72-year-old female presenting with an upper abdominal pain. Workup shows a large mass extending from the lateral aspect of the upper stomach. Upon exploration, this mass was confirmed and appeared to be contained without any obvious spreading, although there were some very tiny nodularity in the area of the esophagogastric junction with pathology pending, where additional esophageal body, which certainly was benign, was identified as well. The patient initially underwent a resection of that with a small margin of the stomach along its edge. Upon frozen section, which showed a spindle cell tumor as the potential diagnosis as listed as above and pathology are still pending. After the initial resection, the upper stomach was extremely narrowed and this along with the tiny nodularity noted in the area of the distal esophagus with esophagogastrectomy with Layla-en-Y esophagojejunostomy. The 20 cm EEA stapler, anvil initially would not pass through the upper esophageal sphincter area. The patient underwent esophageal dilation, which then allowed adequate placement of that anvil and completion of the esophagojejunostomy. Postoperatively, the patient had no major problems. She will have a delayed-primary closure. On postoperative day #2, and is tolerating liquid diet, at this point, to be discharged home. Continued on liquid diet until next appointment, which will be on 04/17/2018 with TRISH Pope. DISCHARGE MEDICATIONS: She will be continuing her present home medications splitting those for 2 weeks and Tylenol as needed for pain. I will hold the supplements and vitamins until after the first appointment. Other than that for the operative procedure will be a second procedure on 04/07/2018, which will be delayed-primary closure of abdominal incision.
--- NOTE | 2018-04-13 15:27 | OR ---
DATE OF PROCEDURE: 04/07/2018 PREOPERATIVE DIAGNOSIS: Open abdominal incision. POSTOPERATIVE DIAGNOSIS: Open abdominal incision. PROCEDURE PERFORMED: Delayed primary closure of open abdominal incision. ANESTHESIA: Local plus IV sedation. INDICATIONS FOR PROCEDURE: This is a 72-year-old status post complex esophagogastrectomy and it was felt at the time of the original procedure that the skin and subcutaneous tissue were at high risk for wound infection if a primary closure was undertaken. Given this, the wounds were packed open for a planned delayed primary closure at this time. Potential risks including bleeding and infection were reviewed with the patient and she wishes to proceed. DETAILS OF PROCEDURE: The patient was taken to the operating room, placed in a supine position. IV sedation was administered. Bilateral subcostal transverse abdominis plane blocks were then placed using continuous ultrasound visualization of the needle and injection of the standard solution bilaterally. Following this, the wound was inspected and found to be clean. The incision was then prepped and draped, anesthetized with 1% lidocaine mixed with Marcaine, and irrigated with meropenem-containing saline solution. The incisions were then closed with 2 layers of 3-0 and 4-0 Vicryl stitch deep and praful for the skin. Dressing was applied. The patient was then taken to the recovery room in satisfactory condition. Jospeh Salazar MD /[id number]
--- NOTE | 2018-04-15 09:08 | OR ---
DATE OF PROCEDURE: 04/05/2018 PREOPERATIVE DIAGNOSIS: Large mass adherent to left lateral aspect of gastric fundus. POSTOPERATIVE DIAGNOSES: 1. 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 2. Esophageal stricture. 3. Peritoneal nodule overlying the small bowel mesentery. PROCEDURE PERFORMED: Exploratory laparotomy with: 1. Resection of a large mass adherent to greater curvature of gastric fundus ( 84630). 2. Esophagogastrectomy with Layla-en-Y esophagojejunostomy (63497). 3. Excision of peritoneal nodule overlying small bowel mesentery (40923). 4. Esophageal dilation (60632). ANESTHESIA: General. ASSISTANTS: 1. Tenisha Horton PA-C. 2. IVELISSE Chapa. INDICATIONS FOR PROCEDURE: This is a 72-year-old presenting with acute onset of left upper quadrant discomfort over the last several days. Prior to that, the patient did have some subtle symptoms of early satiety and a vague sense of discomfort in that area. A CT scan showed a large mass involving the greater curvature of the gastric fundus. An upper endoscopy done earlier showed an area of ulceration and compression of the gastric wall at that location. After preoperative evaluation and discussion, plan is to proceed with resection of the mass. If this appeared to be a gastrointestinal stromal tumor on frozen section, we would then proceed with a limited associated gastric resection should there be some question about that diagnosis and more extensive resection might be required such as an esophagogastrectomy. The potential risks of the procedure including bleeding, infection, local or distant tumor recurrence, possibility of leaks from GI tract closures, stricturing at any gastric or esophageal anastomosis as well as remote possibility of cardiopulmonary, septic, or hemorrhagic complications leading to were discussed and were all reviewed with the patient and her at length and they wished to proceed. They are also aware that postsurgical treatment in terms of some form of systemic chemotherapy might be required in the postoperative period. OPERATIVE FINDINGS: Upon entering peritoneal cavity, as expected, the patient was noted to have a large fleshy mass attached to the greater curvature of the gastric fundus. This was adherent to the omentum, but otherwise was not adherent to any of surrounding structures. There was no associated lymphadenopathy and apart from a small nodule over the small bowel mesentery, which appeared to most likely be a benign peritoneal body, no additional specific pathology was identified. There was no evidence of liver or other visceral metastases and again no lymphadenopathy associated with this. 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 Discussions were held with the pathologist regarding the differential diagnosis , which would include a gastrointestinal stromal tumor, leiomyoma, leiomyosarcoma, all of which at this point would be potentially within the list of final diagnoses. Additionally, after resection of the mass, there was only a narrow lumen in the upper aspect of the stomach. Given that leiomyosarcoma remained within the differential, as well as remaining quite narrowed area involving the area of resection, the decision was made to proceed with a more extensive resection, specifically esophagogastrectomy removing the upper half of the stomach and distal esophagus with Layla-en-Y esophagojejunostomy. This would provide both a definitive excision, regardless of the final pathology as well as provide a more functional gastrointestinal tract as opposed to leaving a small upper gastric pouch involving a narrowed stomach below that level. On attempted placement of the anvil for the circular stapler for formation of the esophagojejunostomy, there appeared to be a stricture near the area of the upper esophageal sphincter. This was dilated with a Savary dilator which then allowed passage of the anvil for completion of the esophagojejunostomy. DETAILS OF PROCEDURE: The patient was taken to the operating room and placed in a supine position. After general endotracheal anesthesia was induced, a Yip catheter was inserted and the abdomen prepped and draped. An upper midline incision was made and carried down through the skin and subcutaneous tissue and into the peritoneal cavity. General exploration was undertaken with the above-noted findings. At this point, an Kell tube was passed orally per Anesthesia through the esophagus and the stomach along the lesser curvature side to provide some protection of over tightening of that area with subsequent resection. The mass was then mobilized upward. Initially, omental attachments to this were divided with QASIM praful. At this point, the stomach was then initially divided using a combination of black and purple QASIM loads maintaining a 1 to 2 cm margin away from the edge of the mass and the mass then excised without entering into it. This was then sent for frozen section with the above-noted findings. At this point, general exploration also had been further completed and a small nodule was noted over the mid small bowel mesentery. This was excised and measured around 5 mm and was sent for final pathologic evaluation as well. There was some slight nodularity or thickening of serosa over the esophagogastric junction. This likely would be some sort of an inflammatory response but upon the decision to proceed with esophagogastrectomy, those areas will be included within the resection. At this point, with the above findings, a decision was made to proceed with esophagogastrectomy. The distal esophagus was then encircled roughly 3 cm above the esophagogastric junction. This included the areas with slight nodularity of the serosa and the esophagus at that level was then divided with a QASIM black load. The remaining gastric attachments down to the mid body of the stomach were divided with QASIM mendieta and mesenteric loads in the stomach and divided with QASIM purple load, again across roughly the mid body of the stomach, leaving the more distal stomach in place. At this point, GI tract reconstruction was further initiated with formation of the Layla-en-Y small bowel anatomy. The small bowel was traced out to roughly 30 cm distal to the ligament of Treitz where it was divided with a QASIM stapler. Small bowel was then traced out an additional 80 cm, where a dsao-uh-xvey enteroenterostomy was accomplished with internal firing of the Endo-QASIM 60 mm stapler. Common opening was then closed transversely with the same stapler and the angles were anastomosed. Mesenteric defect approximated with some 0 Ethibond stitch and in the case of the mesenteric defect with a 2-0 silk stitch. The Layla limb was then brought up through a retrocolic, retrogastric approach, and came up to the area of the divided esophagus without any tension. Initially, an attempt to pass the anvil of a 25-mm EEA stapler, but we were unable to manipulate this through the upper esophageal sphincter; given this, this was initially retrieved and a guidewire passed orally and over this a 48-Iranian Savary dilator was passed. The anvil, which was attached to the [place] sump type tube was then brought down through the mouth once again and taken out through the opening of the distal esophagus and at this point, the anvil was easily brought down near the distal esophagus. The divided end of the Layla limb was then opened and main body of the EEA stapler was passed several centimeters into the lumen of the small bowel, brought up the anvil and united with it, thus creating an esophagojejunostomy. Upon removal of the stapler, double donuts of mucosa were noted within the small bowel, was closed off with a vascular staple line. The esophagojejunostomy was then reinforced with some 3-0 Vicryl seromuscular stitch. These areas of nodularity along the area around the esophagogastric junction were labeled for pathologic review. At this point, no further problems were noted. The abdomen was irrigated with antibiotic- containing saline solution, and midline fascia was then approximated with #2 Vicryl stitch. Skin and subcutaneous tissue were felt to be high risk for a wound infection if primary closure was undertaken. It was, therefore, packed open for a planned delayed primary closure. A single Lauro-Garcia drain had also been placed within the left subcostal area and positioned across the esophagojejunostomy and sutured to the skin with 4-0 Vicryl stitch. The patient was taken to the recovery room in satisfactory condition. Physician assistant sales director, Tenisha Horton, played an essential role in assisting in this case, helping to position the patient, retract structures as needed, as well as suturing and cutting sutures when indicated. Her presence improved patient safety and decreased operative time. Joseph Salazar MD Job #: [id number]
== END 2018-04-09 11:58 | disposition home or self-care (01) | DRG 328 ==
LOC: JP.SDS 09:15 → JP.SDSSCHI 09:15 → EDSTATUS 10:15 → JP.2SS 16:15
PROVIDERS: ADMIT Surgery; ATTEND Surgery
PROC: 0D750ZZ Dilation of Esophagus, Open Approach (ICD-10-PCS; principal; 2018-04-05)
PROC: 0DB60ZZ Excision of Stomach, Open Approach (ICD-10-PCS; principal; 2018-04-05)
PROC: 0D150ZA Bypass Esophagus to Jejunum, Open Approach (ICD-10-PCS; principal; 2018-04-05)
PROC: 0DBW0ZZ Excision of Peritoneum, Open Approach (ICD-10-PCS; principal; 2018-04-05)
PROC: 0DB30ZZ Excision of Lower Esophagus, Open Approach (ICD-10-PCS; 2018-04-05)
PROC: 0WQF0ZZ Repair Abdominal Wall, Open Approach (ICD-10-PCS; 2018-04-07)
DX: C16.1 Malignant neoplasm of fundus of stomach (principal); K22.2 Esophageal obstruction; I34.0 Nonrheumatic mitral (valve) insufficiency; E03.9 Hypothyroidism, unspecified; J45.909 Unspecified asthma, uncomplicated; Z88.2 Allergy status to sulfonamides; Z88.8 Allergy status to other drugs, medicaments and biological substances; K66.8 Other specified disorders of peritoneum; Z48.1 Encounter for planned postprocedural wound closure; Z87.74 Personal history of (corrected) congenital malformations of heart and circulatory system
CPT/HCPCS: 36415; 74240; 74240-26; 80053; 83735; 83880; 84100; 84443; 85025; 85027; 86850; 86900; 86901; 88305; 88307; 88309; 88331; 88341; 88342; 94640; 94762; A9270-GY; C9113; J0171; J0330; J0694; J1100; J1170; J1644; J2185; J2405; J2704; J2710; J2795; J3010; J3411; J3420; J7030; J7042; J7050; J7120; J7620; Q9967

== ENCOUNTER 2018-06-18 07:01 | Day surgery (SDC) | payer MEDICARE, BC ==
[2018-06-18] MEDS ORDERED: Glycopyrrolate 0.2 MG/ML 2 ML SDV IVPUSH ONE (07:30)
[2018-06-18] MEDS ORDERED: Lactated Ringers 1,000 ML IV ONE (07:30)
[2018-06-18] MEDS ORDERED: Cyanocobalamin (Vitamin B12) 1,000 MCG/ML SDV IM ONE (07:30)
[2018-06-18] MEDS ORDERED: Propofol 200 MG/20 ML SDV ONE (08:13)
[2018-06-18] MEDS ORDERED: fentaNYL 100 MCG/2 ML SDV ONE (08:14)
[2018-06-18] MEDS ORDERED: MVI, Adult with Vitamin K 10 ML, Thiamine 200 MG, Chromium/Copper/Mang/Selen/Zn 1 ML in... IV ONE ×4 (08:30)
[2018-06-18 10:08] VITALS: BP 154/71
--- NOTE | 2018-06-24 12:42 | OR ---
DATE OF PROCEDURE: 06/18/2018 PREOPERATIVE DIAGNOSIS: Probable stricture at esophagojejunostomy. POSTOPERATIVE DIAGNOSIS: Mild stricture at esophagojejunostomy. OPERATIVE PROCEDURE: Upper GI endoscopy with dilation of esophagojejunostomy (13395). ANESTHESIA: IV sedation. INDICATION FOR PROCEDURE: This is a 72-year-old presenting with a gastrointestinal stromal tumor involving the proximal stomach, which was resected by means of an esophagogastrectomy on 04/05/2018. She presents now with symptoms suggestive of stricturing at her esophagojejunostomy. The plan is to proceed with an upper GI endoscopy with dilation as indicated. Potential risks including bleeding and perforation were discussed, and the patient wishes to proceed. DETAILS OF PROCEDURE: The patient was taken to the operative room and placed in a left lateral decubitus position. IV sedation was administered, after which the upper GI endoscope was passed orally through the length of the esophagus, through the esophagojejunostomy and roughly 20 cm into the Layla limb. The patient was noted to have a mild stricture of the gastrojejunostomy. The 1 cm gastroscope was able to be passed through the anastomosis. There was no significant inflammation present initially. DICTATION ENDS HERE. Joseph Salazar MD /[id number]
== END 2018-06-18 10:05 | disposition home or self-care (01) ==
LOC: JP.SDS 07:01
PROVIDERS: ATTEND Surgery
DX: K91.89 Other postprocedural complications and disorders of digestive system (principal); J45.909 Unspecified asthma, uncomplicated; I34.0 Nonrheumatic mitral (valve) insufficiency; M19.049 Primary osteoarthritis, unspecified hand; E03.9 Hypothyroidism, unspecified; Z88.1 Allergy status to other antibiotic agents; Z88.2 Allergy status to sulfonamides; Z88.8 Allergy status to other drugs, medicaments and biological substances; Z79.82 Long term (current) use of aspirin; Z79.899 Other long term (current) drug therapy
CPT/HCPCS: 43499; J2704; J3010; J3411; J3420; J3490; J7120

== ENCOUNTER 2019-02-13 16:47 | Inpatient (IN) | payer MEDICARE, BC ==
--- NOTE | 2019-02-13 17:21 | EDM.PDOC ---
ED HPI GENERAL MEDICAL PROBLEM - General Chief Complaint: Chest Pain Stated Complaint: CHEST, STOMACH & ARM PAIN Time Seen by Provider: 02/13/19 17:20 Source of Information: Reports: Patient History Limitations: Reports: No Limitations - History of Present Illness INITIAL COMMENTS - FREE TEXT/NARRATIVE: pt arrived with pain in the left chest worse with deep breathing. She did not fell sob. Pt did have a ekg which revealed a left bundle branch block. Her last ekg was in 2017 did not reveal a left bundle branch block. Onset: Other ( the pain started yesterday and was at first in the left upper abdoman and moved to the left chest, hurting alot more with deep breathing. ) Duration: Hour(s): Location: Reports: Chest, Abdomen Associated Symptoms: Reports: Chest Pain, Shortness of Breath, Other ( The sob is not marked and it is more that it hurts with deep breathing. ) Chest Pain Score (Numeric/FACES): 6 Left Abdomen Pain Score (Numeric/FACES): 8 - Related Data Allergies Allergy/AdvReac Type Severity Reaction Status Date / Time clopidogrel Allergy Unknown Rash Verified 09/20/18 13:16 erythromycin base Allergy Unknown Rash Verified 09/20/18 13:16 [Erythromycin Base] Sulfa (Sulfonamide AdvReac Unknown Rash Verified 09/20/18 13:16 Antibiotics) ciprofloxacin AdvReac Muscle Verified 09/20/18 13:16 Aches hyoscyamine AdvReac Dizziness Verified 09/20/18 13:16 levofloxacin [From Levaquin] AdvReac Muscle Verified 09/20/18 13:16 Aches Home Meds: Home Meds Albuterol [Ventolin HFA] 2 puff IH QID PRN 01/05/17 [History] Ascorbic Acid [Vitamin C] 500 mg PO DAILY 01/05/17 [History] Cholecalciferol (Vitamin D3) [Vitamin D3] 3,000 unit PO DAILY 01/05/17 [History] Levothyroxine 50 mcg PO ACBREAKFAST 01/05/17 [History] Multivitamin-Min/Iron/FA/Vit K [Multi-Day Plus Minerals Tablet] 1 tab PO BID [History] Pindolol [Visken] 5 mg PO DAILY 01/05/17 [History] Triamcinolone Acetonide [Triamcinolone Acetonide 0.1% Crm] 1 applic TOP BID PRN 01/05/17 [History] Ca Carbonate/Vitamin D3/Vit K [Calcium + D Soft Chewable Tab] 1 tab PO BID 06/17 [History] Cyanocobalamin (Vitamin B-12) [Vitamin B-12] 1,000 mcg SL DAILY 06/17/18 [ History] Ranitidine HCl [Zantac] 150 mg PO ASDIRECTED PRN 08/08/18 [History] Papaya [Papaya Enzyme] 1 tab PO TID 08/09/18 [History] Vitamin B Complex [B Complex] 1 tab PO DAILY 08/09/18 [History] [place]-3/DHA/Epa/Fish Oil [Fish Oil 1,000 mg Softgel] 1 each PO DAILY 02/13/19 [ History] Megestrol Acetate [Megace Es] 625 mg PO DAILY 02/14/19 [History] Past Medical History - Past Health History Medical/Surgical History: Denies Medical/Surgical History HEENT History: Reports: Allergic Rhinitis, Impaired Vision Cardiovascular History: Reports: Other (See Below) Other Cardiovascular History: ASD closure, MITRAL VALVE THICKENING Gastrointestinal History: Reports: GERD, Hemorrhoids Genitourinary History: Reports: UTI, Recurrent Other Genitourinary History: pt ? having UTI PHYSICAL DESIGN ENGINEER History: Reports: Dysfunctional Uterine Bleeding, Other PHYSICAL DESIGN ENGINEER History: hx of hystectomy Musculoskeletal History: Reports: Back Pain, Chronic, Osteoarthritis Neurological History: Reports: Vertigo Psychiatric History: Reports: Depression Endocrine/Metabolic History: Reports: Hypothyroidism Hematologic History: Reports: Anemia, B12 Deficiency, Blood Transfusion(s), Iron Deficiency, Transfusion Reaction Oncologic (Cancer) History: Reports: Other (See Below) Other Oncologic History: ABDOMEN MASS Dermatologic History: Reports: Other (See Below) Other Dermatologic History: skin rashes - Infectious Disease History Infectious Disease History: Reports: Chicken Pox, Measles, Mumps - Past Surgical History HEENT Surgical History: Reports: Detached Retina Cardiovascular Surgical History: Reports: Other (See Below) Other Cardiovascular Surgeries/Procedures: ASD closure- 2012 GI Surgical History: Reports: Appendectomy, Colonoscopy, EGD, Other (See Below) Other GI Surgeries/Procedures: mass in stomach Female Surgical History: Reports: Hysterectomy, Salpingo-Oophorectomy Endocrine Surgical History: Reports: None Neurological Surgical History: Reports: None Musculoskeletal Surgical History: Reports: None Oncologic Surgical History: Reports: Other (See Below) Other Oncologic Surgeries/Procedures: MASS REMOVAL Dermatological Surgical History: Reports: None Social & Family History - Family History Family Medical History: Noncontributory - Tobacco Use Smoking Status *Q: Never Smoker - Caffeine Use Caffeine Use: Reports: None - Recreational Drug Use Recreational Drug Use: No ED ROS GENERAL - Review of Systems Review Of Systems: See Below Constitutional: Reports: Weakness, Decreased Appetite, Other (pt starts out hungrey and she gets full rapidly. She has lost 46 lbs since the surgery. ) HEENT: Reports: No Symptoms Respiratory: Reports: Shortness of Breath, Pleuritic Chest Pain Cardiovascular: Reports: No Symptoms Endocrine: Reports: No Symptoms GI/Abdominal: Reports: Other (pain started in the left upper abdoman. ) : Reports: No Symptoms Musculoskeletal: Reports: No Symptoms Skin: Reports: No Symptoms ED EXAM, GENERAL - Physical Exam Exam: See Below Free Text/Narrative:: pt arrived with pain with deep breathing in her left chest. The pain started in the left upper abdoman. Exam Limited By: No Limitations General Appearance: Alert, Moderate Distress Ears: Normal TMs Nose: Normal Inspection Throat/Mouth: Normal Inspection Head: Atraumatic Neck: Normal Inspection Respiratory/Chest: Decreased Breath Sounds, Rales Cardiovascular: Regular Rate, Rhythm, Other ( ekg showed a left bundle branch block) GI/Abdominal: Soft, Non-Tender Rectal (Female) Exam: Deferred Back Exam: Normal Inspection Extremities: Normal Inspection Neurological: Alert, Oriented, Normal Cognition Course - Vital Signs Last Recorded V/S: Last Vital Signs Temp 36.7 C 02/17/19 11:12 Pulse 86 02/17/19 11:12 Resp 16 02/17/19 11:12 BP 107/51 L 02/17/19 11:12 Pulse Ox 98 02/17/19 11:12 - Orders/Labs/Meds Labs: Laboratory Tests 02/13/19 02/13/19 02/13/19 Range/Units 17: 17: 17: WBC 8.9 (4.5-11.0) K/uL RBC 3.87 (3.30-5.50) M/uL Hgb 12.0 (12.0-15.0) g/dL Hct 35.7 L (36.0-48.0) % MCV 92 (80-98) fL MCH 31 (27-31) pg MCHC 34 (32-36) % Plt Count 257 (150-400) K/uL Neut % (Auto) 67 H (36-66) % Lymph % (Auto) 21 L (24-44) % [place] % (Auto) 10 H (2-6) % Eos % (Auto) 2 (2-4) % Baso % (Auto) 0 (0-1) % D-Dimer, Quantitative (0.0-400.0) ng/mL Sodium 139 L (140-148) mmol/L Potassium 4.2 (3.6-5.2) mmol/L Chloride 105 (100-108) mmol/L Carbon Dioxide 26 (21-32) mmol/L Anion Gap 12.2 (5.0-14.0) mmol/L BUN 28 H D (7-18) mg/dL Creatinine 0.8 (0.6-1.0) mg/dL Est Cr Clr Drug Dosing 55.70 mL/min Estimated GFR (MDRD) > 60 (>60) Glucose 106 (74-106) mg/dL Calcium 8.9 (8.5-10.1) mg/dL Phosphorus (2.5-4.9) mg/dL Magnesium (1.8-2.4) mg/dL Total Bilirubin 0.5 (0.2-1.0) mg/dL AST 25 (15-37) U/L ALT 23 (12-78) U/L Alkaline Phosphatase 71 (46-116) U/L Troponin I (0.000-0.056) ng/mL C-Reactive Protein (0.0-0.3) mg/dL Total Protein 6.3 L (6.4-8.2) g/dL Albumin 3.1 L (3.4-5.0) g/dL Globulin 3.2 (2.3-3.5) g/dL Albumin/Globulin Ratio 1.0 L (1.2-2.2) Urine Color Yellow Urine Appearance Clear Urine pH 5.0 (4.5-8.0) Ur Specific [place] 1.020 (1.008-1.030) Urine Protein Negative (NEGATIVE) mg/dL Urine Glucose (UA) Normal (NEGATIVE) mg/dL Urine Ketones Negative (NEGATIVE) mg/dL Urine Occult Blood Negative (NEGATIVE) Urine Nitrite Negative (NEGATIVE) Urine Bilirubin Negative (NEGATIVE) Urine Urobilinogen Normal (NORMAL) mg/dL Ur Leukocyte Esterase Negative (NEGATIVE) Urine RBC Not seen (0-5) Urine WBC 0-5 (0-5) Ur Epithelial Cells Few Amorphous Sediment Not seen Urine Bacteria Not seen Urine Mucus Moderate 02/13/19 02/13/19 02/13/19 Range/Units 17:19 17:33 17:44 WBC (4.5-11.0) K/uL RBC (3.30-5.50) M/uL Hgb (12.0-15.0) g/dL Hct (36.0-48.0) % MCV (80-98) fL MCH (27-31) pg MCHC (32-36) % Plt Count (150-400) K/uL Neut % (Auto) (36-66) % Lymph % (Auto) (24-44) % [place] % (Auto) (2-6) % Eos % (Auto) (2-4) % Baso % (Auto) (0-1) % D-Dimer, Quantitative 1470 H (0.0-400.0) ng/mL Sodium (140-148) mmol/L Potassium (3.6-5.2) mmol/L Chloride (100-108) mmol/L Carbon Dioxide (21-32) mmol/L Anion Gap (5.0-14.0) mmol/L BUN (7-18) mg/dL Creatinine (0.6-1.0) mg/dL Est Cr Clr Drug Dosing mL/min Estimated GFR (MDRD) (>60) Glucose (74-106) mg/dL Calcium (8.5-10.1) mg/dL Phosphorus (2.5-4.9) mg/dL Magnesium (1.8-2.4) mg/dL Total Bilirubin (0.2-1.0) mg/dL AST (15-37) U/L ALT (12-78) U/L Alkaline Phosphatase (46-116) U/L Troponin I < 0.017 (0.000-0.056) ng/mL C-Reactive Protein 5.16 H (0.0-0.3) mg/dL Total Protein (6.4-8.2) g/dL Albumin (3.4-5.0) g/dL Globulin (2.3-3.5) g/dL Albumin/Globulin Ratio (1.2-2.2) Urine Color Urine Appearance Urine pH (4.5-8.0) Ur Specific [place] (1.008-1.030) Urine Protein (NEGATIVE) mg/dL Urine Glucose (UA) (NEGATIVE) mg/dL Urine Ketones (NEGATIVE) mg/dL Urine Occult Blood (NEGATIVE) Urine Nitrite (NEGATIVE) Urine Bilirubin (NEGATIVE) Urine Urobilinogen (NORMAL) mg/dL Ur Leukocyte Esterase (NEGATIVE) Urine RBC (0-5) Urine WBC (0-5) Ur Epithelial Cells Amorphous Sediment Urine Bacteria Urine Mucus 02/14/19 02/14/19 02/14/19 Range/Units 05:00 06:06 06:06 WBC 6.6 6.5 (4.5-11.0) K/uL RBC 3.84 3.86 (3.30-5.50) M/uL Hgb 11.4 L 11.8 L (12.0-15.0) g/dL Hct 35.5 L 35.8 L (36.0-48.0) % MCV 92 93 (80-98) fL MCH 30 31 (27-31) pg MCHC 32 33 (32-36) % Plt Count 228 232 (150-400) K/uL Neut % (Auto) 62 (36-66) % Lymph % (Auto) 24 (24-44) % [place] % (Auto) 11 H (2-6) % Eos % (Auto) 3 (2-4) % Baso % (Auto) 0 (0-1) % D-Dimer, Quantitative (0.0-400.0) ng/mL Sodium 141 (140-148) mmol/L Potassium 3.6 (3.6-5.2) mmol/L Chloride 106 (100-108) mmol/L Carbon Dioxide 27 (21-32) mmol/L Anion Gap 8.2 (5.0-14.0) mmol/L BUN 11 D (7-18) mg/dL Creatinine 0.8 (0.6-1.0) mg/dL Est Cr Clr Drug Dosing 55.70 mL/min Estimated GFR (MDRD) > 60 (>60) Glucose 111 H (74-106) mg/dL Calcium 8.7 (8.5-10.1) mg/dL Phosphorus (2.5-4.9) mg/dL Magnesium (1.8-2.4) mg/dL Total Bilirubin 0.6 (0.2-1.0) mg/dL AST 24 (15-37) U/L ALT 20 (12-78) U/L Alkaline Phosphatase 68 (46-116) U/L Troponin I (0.000-0.056) ng/mL C-Reactive Protein (0.0-0.3) mg/dL Total Protein 5.9 L (6.4-8.2) g/dL Albumin 2.8 L (3.4-5.0) g/dL Globulin 3.1 (2.3-3.5) g/dL Albumin/Globulin Ratio 0.9 L (1.2-2.2) Urine Color Urine Appearance Urine pH (4.5-8.0) Ur Specific [place] (1.008-1.030) Urine Protein (NEGATIVE) mg/dL Urine Glucose (UA) (NEGATIVE) mg/dL Urine Ketones (NEGATIVE) mg/dL Urine Occult Blood (NEGATIVE) Urine Nitrite (NEGATIVE) Urine Bilirubin (NEGATIVE) Urine Urobilinogen (NORMAL) mg/dL Ur Leukocyte Esterase (NEGATIVE) Urine RBC (0-5) Urine WBC (0-5) Ur Epithelial Cells Amorphous Sediment Urine Bacteria Urine Mucus 02/14/19 Range/Units 06:06 WBC (4.5-11.0) K/uL RBC (3.30-5.50) M/uL Hgb (12.0-15.0) g/dL Hct (36.0-48.0) % MCV (80-98) fL MCH (27-31) pg MCHC (32-36) % Plt Count (150-400) K/uL Neut % (Auto) (36-66) % Lymph % (Auto) (24-44) % [place] % (Auto) (2-6) % Eos % (Auto) (2-4) % Baso % (Auto) (0-1) % D-Dimer, Quantitative (0.0-400.0) ng/mL Sodium (140-148) mmol/L Potassium (3.6-5.2) mmol/L Chloride (100-108) mmol/L Carbon Dioxide (21-32) mmol/L Anion Gap (5.0-14.0) mmol/L BUN (7-18) mg/dL Creatinine (0.6-1.0) mg/dL Est Cr Clr Drug Dosing mL/min Estimated GFR (MDRD) (>60) Glucose (74-106) mg/dL Calcium (8.5-10.1) mg/dL Phosphorus 3.3 (2.5-4.9) mg/dL Magnesium 1.8 (1.8-2.4) mg/dL Total Bilirubin (0.2-1.0) mg/dL AST (15-37) U/L ALT (12-78) U/L Alkaline Phosphatase (46-116) U/L Troponin I (0.000-0.056) ng/mL C-Reactive Protein (0.0-0.3) mg/dL Total Protein (6.4-8.2) g/dL Albumin (3.4-5.0) g/dL Globulin (2.3-3.5) g/dL Albumin/Globulin Ratio (1.2-2.2) Urine Color Urine Appearance Urine pH (4.5-8.0) Ur Specific [place] (1.008-1.030) Urine Protein (NEGATIVE) mg/dL Urine Glucose (UA) (NEGATIVE) mg/dL Urine Ketones (NEGATIVE) mg/dL Urine Occult Blood (NEGATIVE) Urine Nitrite (NEGATIVE) Urine Bilirubin (NEGATIVE) Urine Urobilinogen (NORMAL) mg/dL Ur Leukocyte Esterase (NEGATIVE) Urine RBC (0-5) Urine WBC (0-5) Ur Epithelial Cells Amorphous Sediment Urine Bacteria Urine Mucus Meds: Medications Discontinued Medications Generic Name Dose Route Start Last Admin Trade Name Freq PRN Reason Stop Dose Admin Albuterol 0 gm 02/14/19 07:48 Ventolin Hfa INH QID PRN Allergies Ascorbic Acid 500 mg 02/14/19 09:00 02/17/19 08:36 Vitamin C PO 500 mg DAILY SUELLEN Administration Calcium Carbonate 1 tab 02/14/19 09:00 02/17/19 08:35 Caltrate 600+D 1500 Mg-400 Units PO 1 tab BID SUELLEN Administration Cholecalciferol 3,000 units 02/14/19 09:00 02/17/19 08:36 Vitamin D3 PO 3,000 units DAILY SUELLEN Administration Cyanocobalamin 1,000 mcg 02/14/19 09:00 02/17/19 08:36 Vitamin B12 PO 1,000 mcg DAILY SUELLEN Administration Docusate Sodium 100 mg 02/15/19 09:00 02/17/19 08:35 Colace PO 100 mg BID SUELLEN Administration Fentanyl 12.5 mcg 02/13/19 21:45 02/15/19 04:41 Sublimaze IVPUSH 12.5 mcg Q2H PRN Administration Pain Hydromorphone HCl 2 mg 02/15/19 08:02 Dilaudid PO Q3H PRN PAIN Sodium Chloride 1,000 mls @ 999 mls/hr 02/13/19 18:30 02/13/19 20:50 Normal Saline IV 999 mls/hr ASDIRECTED SUELLEN Administration Sodium Chloride 100 mls @ 3 mls/sec 02/13/19 18:30 02/13/19 19:25 Normal Saline IV 3 mls/sec ASDIRECTED SUELLEN Administration Sodium Chloride 80 mls @ 3 mls/sec 02/13/19 20:30 02/13/19 20:40 Normal Saline IV 3 mls/sec ASDIRECTED SUELLEN Administration Sodium Chloride 1,000 mls @ 500 mls/hr 02/13/19 20:45 Normal Saline IV ASDIRECTED SUELLEN Dextrose/Lactated Ringer's 1,000 mls @ 150 mls/hr 02/13/19 21:45 02/15/19 02: 51 Dextrose 5%-Lactated Ringers IV 150 mls/hr ASDIRECTED SUELLEN Administration Iopamidol 100 ml 02/13/19 18:30 02/13/19 19:25 Isovue-370 (76%) IV 100 ml . DIRECTED SUELLEN Administration Iopamidol 100 ml 02/13/19 20:30 02/13/19 20:40 Isovue-300 (61%) IV 100 ml . DIRECTED SUELLEN Administration Levothyroxine Sodium 50 mcg 02/14/19 09:00 02/17/19 07:01 Synthroid PO 50 mcg ACBREAKFAST SUELLEN Administration Multivitamins/Minerals 1 tab 02/14/19 09:00 02/17/19 08:36 Thera M Plus PO 1 tab BID SUELLEN Administration Megestrol Suspension 0 each 02/15/19 10:00 02/17/19 08:36 625mg/5mlPom PO 1 each DAILY SUELLEN Administration Pindolol 5 mg 02/14/19 09:00 02/17/19 08:35 Pindolol PO 5 mg DAILY SUELLEN Administration Ranitidine HCl 150 mg 02/14/19 07:48 Zantac PO DAILY PRN HEARTBURN Sodium Chloride 10 ml 02/13/19 18:23 02/13/19 19:25 Saline Flush FLUSH 10 ml ASDIRECTED PRN Administration Keep Vein Open Sodium Chloride 10 ml 02/13/19 20:23 02/13/19 20:40 Saline Flush FLUSH 10 ml ASDIRECTED PRN Administration Keep Vein Open Sodium Chloride 10 ml 02/15/19 08:01 Saline Flush IV ASDIRECTED PRN LINE FLUSH Triamcinolone Acetonide 0 gm 02/14/19 07:48 Triamcinolone Acetonide 0.1% Crm TOP BID PRN Rash Vitamin B Complex 1 each 02/14/19 09:00 02/17/19 08:36 Vitamin B Complex PO 1 each DAILY SUELLEN Administration - Re-Assessments/Exams Free Text/Narrative Re-Assessment/Exam: 02/13/19 18:28 pt has a elevated ddimer. She has a normal wbc, normal trop. Her Ekg shows a bundle branch block which is new since 2017. Departure - Departure Time of Disposition: 11:15 Disposition: Admitted As Inpatient 68
--- NOTE | 2019-02-13 18:06 | CRLCR ---
INDICATION: Left sided chest pain, hurts worse with deep breath TECHNIQUE: Chest radiograph 2 views COMPARISON: None FINDINGS: Mediastinum: The mediastinum is normal in appearance. The heart silhouette is normal in size and morphology. An atrial septal occlusive device is noted. Lung: Both lungs are unremarkable in appearance. No sign of pleural effusion seen. No pneumothorax is identified. Musculoskeletal: Unremarkable for age. IMPRESSION: 1. No acute cardiopulmonary disease is seen. Dictated by: Mingo Hewitt MD @ 02/13/2019 18:04:04 (Electronically Signed)
[2019-02-13] MEDS ORDERED: Sodium Chloride 0.9% 10 ML Syringe FLUSH PRN ×2 (18:23→20:23)
[2019-02-13] MEDS ORDERED: Iopamidol 755 Mg/ML 100 ML Bottle IV SCH (18:30)
[2019-02-13] MEDS ORDERED: Sodium Chloride 0.9% 1,000 ML IV SCH ×2 (18:30→20:45)
[2019-02-13] MEDS ORDERED: Sodium Chloride 0.9% 100 ML IV SCH (18:30)
--- NOTE | 2019-02-13 20:09 | CRLCT ---
INDICATION: Left-sided pleuritic chest pain TECHNIQUE: CT chest pulmonary PE protocol acquired with 100 cc Isovue 3 IV contrast. COMPARISON: Chest CT November 25, 2018 FINDINGS: Cardiovascular structures: Normal vascular enhancement of the pulmonary arteries, no sign of pulmonary embolism. Heart size is normal. Atrial septal defect closure device noted. Coronary artery calcifications. No sign of aneurysm in the thoracic aorta. Mediastinum and sharmila: No mediastinal mass or adenopathy. There is a 1.6 cm hypodense lesion in the left thyroid lobe with small amount of rim calcification. Lungs: Clear. Pleura and pericardium: No effusions. Chest wall and axilla: No mass or adenopathy. Upper abdomen: Status post gastric bypass procedure. Incompletely visualized is large amount of heterogeneous density around the spleen. Bones: No significant findings. IMPRESSION: Large amount of heterogeneous density around the spleen likely represents splenic rupture with subcapsular hematoma. This is incompletely visualized on this chest CT. Recommend CT of the abdomen and pelvis with arterial and portal venous phase imaging. These findings were discussed with Dr. Garcia at 8:02 p.m. on February 13, 2019. No pulmonary embolus. Hypodense lesion in the left thyroid lobe. Recommend nonemergent ultrasound for further characterization. Status post gastric bypass procedure and atrial septal defect closure device. Please note that all CT scans at this facility use dose modulation, iterative reconstruction, and/or weight-based dosing when appropriate to reduce radiation dose to as low as reasonably achievable. Dictated by Jennifer Golden MD @ Feb 13 2019 7:50PM Signed by Dr. Jennifer Golden @ Feb 13 2019 8:07PM
[2019-02-13] MEDS ORDERED: Iopamidol 612 MG/ML 100 ML Bottle IV SCH (20:30)
[2019-02-13] MEDS ORDERED: Sodium Chloride 0.9% 80 ML IV SCH (20:30)
--- NOTE | 2019-02-13 21:12 | CRLCT ---
INDICATION: Splenic abdomen, pelvis injury TECHNIQUE: CT Abdomen and pelvis with i.v. contrast. Coronal and sagittal reformats were obtained. CONTRAST: 100 mL Isovue 300 COMPARISON: 11/25/2018 FINDINGS: Lower chest: Unremarkable. Liver: Unremarkable. Spleen: There is a new heterogeneous structure measuring 58 HU surrounding the anterior and inferior aspect of the spleen where it has a more globular appearance and measures 8.7 x 6.3 cm. On image 24, there is a punctate focus of enhancement within this structure. Pancreas: Unremarkable. Gallbladder: Unremarkable. Kidney: Excretion of contrast into the renal collecting systems and ureters are noted, which limits evaluation for the presence of stones. Adrenal: Unremarkable. Bowel: Partial gastric resection is noted with Layla-en-Y anastomosis seen. The appendix is not identified. Vascular: Unremarkable. Lymph: Unremarkable. Peritoneum: Unremarkable. No pneumoperitoneum is seen. A small amount of pelvic ascites is present with average density of 20-27 HU. Pelvis: Unremarkable. Soft tissue: Unremarkable. Bone: Unremarkable for age. IMPRESSIONS: 1. There is a new heterogeneous structure measuring 58 HU surrounding the anterior and inferior aspect of the spleen where it has a more globular appearance and measures 8.7 x 6.3 cm. On image 24, there is a punctate focus of enhancement within this structure. Findings may represent a large subcapsular hematoma with a small focus of active hemorrhage. 2. A small amount of pelvic ascites is present with average density of 20-27 HU. A small amount of hemoperitoneum should be suspected. A copy of this report was faxed to Dr. Garcia at approximately 9:09 PM. Dictated by Mingo Hewitt MD @ 02/13/2019 9:09:24 PM Please note that all CT scans at this facility use dose modulation, iterative reconstruction, and/or weight-based dosing when appropriate to reduce radiation dose to as low as reasonably achievable. Dictated by: Mingo Hewitt MD @ 02/13/2019 21:09:59 (Electronically Signed)
[2019-02-13] MEDS: Dextrose 5%-Lactated Ringers 1,000 ML IV SCH (21:54)
[2019-02-13] MEDS: fentaNYL 100 MCG/2 ML SDV IVPUSH PRN (22:38)
[2019-02-14] MEDS: fentaNYL 100 MCG/2 ML SDV IVPUSH PRN ×2 (01:29→22:10)
[2019-02-14] MEDS: Dextrose 5%-Lactated Ringers 1,000 ML IV SCH ×2 (05:05→18:44)
[2019-02-14] MEDS ORDERED: Albuterol 8 GM Inhaler INH PRN (07:48)
[2019-02-14] MEDS ORDERED: Triamcinolone Acetonide 0.1% Crm 15 GM Tube TOP PRN (07:48)
[2019-02-14] MEDS ORDERED: CHOLECALCIFEROL 3000 UNIT PO SCH (09:00)
[2019-02-14] MEDS ORDERED: Non-Formulary Medication 1 Each (Cyanocobalamin (Vitamin B-12) [Vitamin B-12] 1,000 MCG) SL SCH (09:00)
[2019-02-14] MEDS ORDERED: Non-Formulary Medication 1 Each (Multivitamin-Min/Iron/Fa/Vit K [Multi-Day Plus Minerals T PO SCH (09:00)
[2019-02-14] MEDS: Ascorbic Acid 500 MG Tab PO SCH (09:59)
[2019-02-14] MEDS: Calcium Carbonate/Vitamin D3 1500 MG-400 Units Tab PO SCH ×2 (09:59→22:16)
[2019-02-14] MEDS: Cyanocobalamin (Vitamin B12) 1,000 MCG Tab PO SCH (09:59)
[2019-02-14] MEDS: Vitamin B Complex Tab PO SCH (09:59)
[2019-02-14] MEDS: Multivitamins with Iron/Calcium/Folic Acid/Minerals Tab PO SCH ×2 (10:00→22:16)
[2019-02-14] MEDS: Cholecalciferol (Vitamin D3) 1,000 Unit Tab PO SCH (10:00)
[2019-02-14] MEDS: Pindolol 10 MG Tab PO SCH (11:14)
[2019-02-14] MEDS: Levothyroxine 50 MCG Tab PO SCH (11:14)
--- NOTE | 2019-02-14 11:18 | PCM.HP ---
H&P History of Present Illness - General Date of Service: 02/14/19 Admit Problem/Dx: Admission Diagnosis/Problem Admission Diagnosis/Problem Abdominal pain Source of Information: Patient History Limitations: Reports: No Limitations - History of Present Illness Initial Comments - Free Text/Narative: Gayatri states that she developed right upper quadrant pain. She states that the pain increased to the point where she went to the ED. CT Scan showed spontaneous splenic rupture. Onset of Symptoms: Reports: Gradual Location: Reports: Abdomen Quality: Reports: Ache, Pressure, Throbbing Severity: Moderate Improves with: Reports: Medication Worsens with: Reports: None Context: Reports: Sick Contact Associated Symptoms: Reports: Weakness Chest Pain Score (Numeric/FACES): 6 Left Abdomen Pain Score (Numeric/FACES): 8 - Related Data Allergies/Adverse Reactions: Allergies Allergy/AdvReac Type Severity Reaction Status Date / Time clopidogrel Allergy Unknown Rash Verified 09/20/18 13:16 erythromycin base Allergy Unknown Rash Verified 09/20/18 13:16 [Erythromycin Base] Sulfa (Sulfonamide AdvReac Unknown Rash Verified 09/20/18 13:16 Antibiotics) ciprofloxacin AdvReac Muscle Verified 09/20/18 13:16 Aches hyoscyamine AdvReac Dizziness Verified 09/20/18 13:16 levofloxacin [From Levaquin] AdvReac Muscle Verified 09/20/18 13:16 Aches Home Medications: Home Meds Albuterol [Ventolin HFA] 2 puff IH QID PRN 01/05/17 [History] Ascorbic Acid [Vitamin C] 500 mg PO DAILY 01/05/17 [History] Cholecalciferol (Vitamin D3) [Vitamin D3] 3,000 unit PO DAILY 01/05/17 [History] Levothyroxine 50 mcg PO ACBREAKFAST 01/05/17 [History] Multivitamin-Min/Iron/FA/Vit K [Multi-Day Plus Minerals Tablet] 1 tab PO BID [History] Pindolol [Visken] 5 mg PO DAILY 01/05/17 [History] Triamcinolone Acetonide [Triamcinolone Acetonide 0.1% Crm] 1 applic TOP BID PRN 01/05/17 [History] Ca Carbonate/Vitamin D3/Vit K [Calcium + D Soft Chewable Tab] 1 tab PO BID 06/17 [History] Cyanocobalamin (Vitamin B-12) [Vitamin B-12] 1,000 mcg SL DAILY 06/17/18 [ History] Ranitidine HCl [Zantac] 150 mg PO ASDIRECTED PRN 08/08/18 [History] Papaya [Papaya Enzyme] 1 tab PO TID 08/09/18 [History] Vitamin B Complex [B Complex] 1 tab PO DAILY 08/09/18 [History] Nemo-3/DHA/Epa/Fish Oil [Fish Oil 1,000 mg Softgel] 1 each PO DAILY 02/13/19 [ History] Past Medical History - Past Health History Medical/Surgical History: Denies Medical/Surgical History HEENT History: Reports: Allergic Rhinitis, Impaired Vision Cardiovascular History: Reports: Other (See Below) Other Cardiovascular History: ASD closure, MITRAL VALVE THICKENING Gastrointestinal History: Reports: GERD, Hemorrhoids Genitourinary History: Reports: UTI, Recurrent Other Genitourinary History: pt ? having UTI [employer] History: Reports: Dysfunctional Uterine Bleeding, Other OB/BYN History: hx of hystectomy Musculoskeletal History: Reports: Back Pain, Chronic, Osteoarthritis Neurological History: Reports: Vertigo Psychiatric History: Reports: Depression Endocrine/Metabolic History: Reports: Hypothyroidism Hematologic History: Reports: Anemia, B12 Deficiency, Blood Transfusion(s), Iron Deficiency, Transfusion Reaction Oncologic (Cancer) History: Reports: Other (See Below) Other Oncologic History: ABDOMEN MASS Dermatologic History: Reports: Other (See Below) Other Dermatologic History: skin rashes - Infectious Disease History Infectious Disease History: Reports: Chicken Pox, Measles, Mumps - Past Surgical History HEENT Surgical History: Reports: Detached Retina Cardiovascular Surgical History: Reports: Other (See Below) Other Cardiovascular Surgeries/Procedures: ASD closure- 2012 GI Surgical History: Reports: Appendectomy, Colonoscopy, EGD, Other (See Below) Other GI Surgeries/Procedures: mass in stomach Female Surgical History: Reports: Hysterectomy, Salpingo-Oophorectomy Endocrine Surgical History: Reports: None Neurological Surgical History: Reports: None Musculoskeletal Surgical History: Reports: None Oncologic Surgical History: Reports: Other (See Below) Other Oncologic Surgeries/Procedures: MASS REMOVAL Dermatological Surgical History: Reports: None Social & Family History - Family History Family Medical History: Noncontributory - Tobacco Use Smoking Status *Q: Never Smoker Second Hand Smoke Exposure: No - Caffeine Use Caffeine Use: Reports: None - Recreational Drug Use Recreational Drug Use: No H&P Review of Systems - Review of Systems: Review Of Systems: See Below General: Reports: Weakness, Decreased Appetite, Weight Loss HEENT: Reports: No Symptoms Pulmonary: Reports: No Symptoms Cardiovascular: Reports: No Symptoms Gastrointestinal: Reports: Abdominal Pain, Decreased Appetite, Nausea Musculoskeletal: Reports: No Symptoms Skin: Reports: No Symptoms Psychiatric: Reports: No Symptoms Neurological: Reports: No Symptoms Hematologic/Lymphatic: Reports: No Symptoms Immunologic: Reports: No Symptoms Exam - Exam Exam: See Below - Vital Signs Vital Signs: Last Vital Signs Temp 97.8 F 02/14/19 07:29 Pulse 79 02/14/19 07:29 Resp 16 02/14/19 07:29 BP 132/61 02/14/19 07:29 Pulse Ox 95 02/14/19 07:29 Weight: 120 lb 11.214 oz - Exam General: Alert, Mild Distress HEENT: PERRLA Neck: Supple, Trachea Midline Lungs: Clear to Auscultation, Normal Respiratory Effort Cardiovascular: Regular Rhythm, Systolic Murmur GI/Abdominal Exam: Tender (right and left upper quadtrants. ) (Female) Exam: Deferred Rectal (Female) Exam: Deferred Extremities: Normal Inspection, Normal Range of Motion Skin: Warm, Dry, Intact Neurological: Cranial Nerves Intact, Reflexes Equal Bilateral Neuro Extensive - Mental Status: Alert, Oriented x3, Normal Mood/Affect Neuro Extensive - Motor, Sensory, Reflexes: CN II-XII Intact, Normal Gait Psychiatric: Alert, Normal Affect, Normal Mood - Patient Data Lab Results Last 24 hrs: Laboratory Results - last 24 hr 02/13/19 02/13/19 02/13/19 Range/Units 17:19 17:19 17: WBC 8.9 (4.5-11.0) K/uL RBC 3.87 (3.30-5.50) M/uL Hgb 12.0 (12.0-15.0) g/dL Hct 35.7 L (36.0-48.0) % MCV 92 (80-98) fL MCH 31 (27-31) pg MCHC 34 (32-36) % Plt Count 257 (150-400) K/uL Neut % (Auto) 67 H (36-66) % Lymph % (Auto) 21 L (24-44) % [place] % (Auto) 10 H (2-6) % Eos % (Auto) 2 (2-4) % Baso % (Auto) 0 (0-1) % D-Dimer, Quantitative (0.0-400.0) ng/mL Sodium 139 L (140-148) mmol/L Potassium 4.2 (3.6-5.2) mmol/L Chloride 105 (100-108) mmol/L Carbon Dioxide 26 (21-32) mmol/L Anion Gap 12.2 (5.0-14.0) mmol/L BUN 28 H D (7-18) mg/dL Creatinine 0.8 (0.6-1.0) mg/dL Est Cr Clr Drug Dosing 55.70 mL/min Estimated GFR (MDRD) > 60 (>60) Glucose 106 (74-106) mg/dL Calcium 8.9 (8.5-10.1) mg/dL Phosphorus (2.5-4.9) mg/dL Magnesium (1.8-2.4) mg/dL Total Bilirubin 0.5 (0.2-1.0) mg/dL AST 25 (15-37) U/L ALT 23 (12-78) U/L Alkaline Phosphatase 71 (46-116) U/L Troponin I (0.000-0.056) ng/mL C-Reactive Protein (0.0-0.3) mg/dL Total Protein 6.3 L (6.4-8.2) g/dL Albumin 3.1 L (3.4-5.0) g/dL Globulin 3.2 (2.3-3.5) g/dL Albumin/Globulin Ratio 1.0 L (1.2-2.2) Urine Color Yellow Urine Appearance Clear Urine pH 5.0 (4.5-8.0) Ur Specific Reeders 1.020 (1.008-1.030) Urine Protein Negative (NEGATIVE) mg/dL Urine Glucose (UA) Normal (NEGATIVE) mg/dL Urine Ketones Negative (NEGATIVE) mg/dL Urine Occult Blood Negative (NEGATIVE) Urine Nitrite Negative (NEGATIVE) Urine Bilirubin Negative (NEGATIVE) Urine Urobilinogen Normal (NORMAL) mg/dL Ur Leukocyte Esterase Negative (NEGATIVE) Urine RBC Not seen (0-5) Urine WBC 0-5 (0-5) Ur Epithelial Cells Few Amorphous Sediment Not seen Urine Bacteria Not seen Urine Mucus Moderate 02/13/19 02/13/19 02/13/19 Range/Units 17:19 17:33 17:44 WBC (4.5-11.0) K/uL RBC (3.30-5.50) M/uL Hgb (12.0-15.0) g/dL Hct (36.0-48.0) % MCV (80-98) fL MCH (27-31) pg MCHC (32-36) % Plt Count (150-400) K/uL Neut % (Auto) (36-66) % Lymph % (Auto) (24-44) % [place] % (Auto) (2-6) % Eos % (Auto) (2-4) % Baso % (Auto) (0-1) % D-Dimer, Quantitative 1470 H (0.0-400.0) ng/mL Sodium (140-148) mmol/L Potassium (3.6-5.2) mmol/L Chloride (100-108) mmol/L Carbon Dioxide (21-32) mmol/L Anion Gap (5.0-14.0) mmol/L BUN (7-18) mg/dL Creatinine (0.6-1.0) mg/dL Est Cr Clr Drug Dosing mL/min Estimated GFR (MDRD) (>60) Glucose (74-106) mg/dL Calcium (8.5-10.1) mg/dL Phosphorus (2.5-4.9) mg/dL Magnesium (1.8-2.4) mg/dL Total Bilirubin (0.2-1.0) mg/dL AST (15-37) U/L ALT (12-78) U/L Alkaline Phosphatase (46-116) U/L Troponin I < 0.017 (0.000-0.056) ng/mL C-Reactive Protein 5.16 H (0.0-0.3) mg/dL Total Protein (6.4-8.2) g/dL Albumin (3.4-5.0) g/dL Globulin (2.3-3.5) g/dL Albumin/Globulin Ratio (1.2-2.2) Urine Color Urine Appearance Urine pH (4.5-8.0) Ur Specific Reed[place] (1.008-1.030) Urine Protein (NEGATIVE) mg/dL Urine Glucose (UA) (NEGATIVE) mg/dL Urine Ketones (NEGATIVE) mg/dL Urine Occult Blood (NEGATIVE) Urine Nitrite (NEGATIVE) Urine Bilirubin (NEGATIVE) Urine Urobilinogen (NORMAL) mg/dL Ur Leukocyte Esterase (NEGATIVE) Urine RBC (0-5) Urine WBC (0-5) Ur Epithelial Cells Amorphous Sediment Urine Bacteria Urine Mucus 02/14/19 02/14/19 02/14/19 Range/Units 05:00 06:06 06:06 WBC 6.6 6.5 (4.5-11.0) K/uL RBC 3.84 3.86 (3.30-5.50) M/uL Hgb 11.4 L 11.8 L (12.0-15.0) g/dL Hct 35.5 L 35.8 L (36.0-48.0) % MCV 92 93 (80-98) fL MCH 30 31 (27-31) pg MCHC 32 33 (32-36) % Plt Count 228 232 (150-400) K/uL Neut % (Auto) 62 (36-66) % Lymph % (Auto) 24 (24-44) % [place] % (Auto) 11 H (2-6) % Eos % (Auto) 3 (2-4) % Baso % (Auto) 0 (0-1) % D-Dimer, Quantitative (0.0-400.0) ng/mL Sodium 141 (140-148) mmol/L Potassium 3.6 (3.6-5.2) mmol/L Chloride 106 (100-108) mmol/L Carbon Dioxide 27 (21-32) mmol/L Anion Gap 8.2 (5.0-14.0) mmol/L BUN 11 D (7-18) mg/dL Creatinine 0.8 (0.6-1.0) mg/dL Est Cr Clr Drug Dosing 55.70 mL/min Estimated GFR (MDRD) > 60 (>60) Glucose 111 H (74-106) mg/dL Calcium 8.7 (8.5-10.1) mg/dL Phosphorus (2.5-4.9) mg/dL Magnesium (1.8-2.4) mg/dL Total Bilirubin 0.6 (0.2-1.0) mg/dL AST 24 (15-37) U/L ALT 20 (12-78) U/L Alkaline Phosphatase 68 (46-116) U/L Troponin I (0.000-0.056) ng/mL C-Reactive Protein (0.0-0.3) mg/dL Total Protein 5.9 L (6.4-8.2) g/dL Albumin 2.8 L (3.4-5.0) g/dL Globulin 3.1 (2.3-3.5) g/dL Albumin/Globulin Ratio 0.9 L (1.2-2.2) Urine Color Urine Appearance Urine pH (4.5-8.0) Ur Specific [place] (1.008-1.030) Urine Protein (NEGATIVE) mg/dL Urine Glucose (UA) (NEGATIVE) mg/dL Urine Ketones (NEGATIVE) mg/dL Urine Occult Blood (NEGATIVE) Urine Nitrite (NEGATIVE) Urine Bilirubin (NEGATIVE) Urine Urobilinogen (NORMAL) mg/dL Ur Leukocyte Esterase (NEGATIVE) Urine RBC (0-5) Urine WBC (0-5) Ur Epithelial Cells Amorphous Sediment Urine Bacteria Urine Mucus 02/14/19 Range/Units 06:06 WBC (4.5-11.0) K/uL RBC (3.30-5.50) M/uL Hgb (12.0-15.0) g/dL Hct (36.0-48.0) % MCV (80-98) fL MCH (27-31) pg MCHC (32-36) % Plt Count (150-400) K/uL Neut % (Auto) (36-66) % Lymph % (Auto) (24-44) % [place] % (Auto) (2-6) % Eos % (Auto) (2-4) % Baso % (Auto) (0-1) % D-Dimer, Quantitative (0.0-400.0) ng/mL Sodium (140-148) mmol/L Potassium (3.6-5.2) mmol/L Chloride (100-108) mmol/L Carbon Dioxide (21-32) mmol/L Anion Gap (5.0-14.0) mmol/L BUN (7-18) mg/dL Creatinine (0.6-1.0) mg/dL Est Cr Clr Drug Dosing mL/min Estimated GFR (MDRD) (>60) Glucose (74-106) mg/dL Calcium (8.5-10.1) mg/dL Phosphorus 3.3 (2.5-4.9) mg/dL Magnesium 1.8 (1.8-2.4) mg/dL Total Bilirubin (0.2-1.0) mg/dL AST (15-37) U/L ALT (12-78) U/L Alkaline Phosphatase (46-116) U/L Troponin I (0.000-0.056) ng/mL C-Reactive Protein (0.0-0.3) mg/dL Total Protein (6.4-8.2) g/dL Albumin (3.4-5.0) g/dL Globulin (2.3-3.5) g/dL Albumin/Globulin Ratio (1.2-2.2) Urine Color Urine Appearance Urine pH (4.5-8.0) Ur Specific Reed[place] (1.008-1.030) Urine Protein (NEGATIVE) mg/dL Urine Glucose (UA) (NEGATIVE) mg/dL Urine Ketones (NEGATIVE) mg/dL Urine Occult Blood (NEGATIVE) Urine Nitrite (NEGATIVE) Urine Bilirubin (NEGATIVE) Urine Urobilinogen (NORMAL) mg/dL Ur Leukocyte Esterase (NEGATIVE) Urine RBC (0-5) Urine WBC (0-5) Ur Epithelial Cells Amorphous Sediment Urine Bacteria Urine Mucus Result Diagrams: 02/14/19 06:06 02/14/19 06:06 Problem List Initiated/Reviewed/Updated: Yes Orders Last 24hrs: Active Orders 24 hr Category Date Time Status Admission Status [Patient Status] [ADT] Routine ADT 02/13/19 21:33 Active Antiembolic Devices [RC] .Routine Care 02/14/19 07:43 Active Bedrest Bathroom Privileges [RC] ASDIRECTED Care 02/14/19 07:44 Active Communication Order [RC] ASDIRECTED Care 02/14/19 07:52 Active EKG Documentation Completion [RC] ASDIRECTED Care 02/13/19 17:19 Active Vital Signs [RC] Q4H Care 02/13/19 21:43 Active Consult to Full Charge Bookkeeper [CONS] Routine Cons 02/14/19 07:46 Active Regular Diet [DIET] Diet 02/14/19 Breakfast Active CBC W/O DIFF,HEMOGRAM [HEME] Routine Lab 02/14/19 17:00 Ordered CBC W/O DIFF,HEMOGRAM [HEME] Timed Lab 02/15/19 05:00 Ordered Albuterol [Ventolin HFA] Med 02/14/19 07:48 Active 0 gm INH QID PRN Ascorbic Acid [Vitamin C] Med 02/14/19 09:00 Active 500 mg PO DAILY Calcium Carbonate/Vitamin D3 [Caltrate 600+D 1500 MG- Med 02/14/19 09:00 Active 400 Units] 1 tab PO BID Cholecalciferol (Vitamin D3) [Vitamin D3] Med 02/14/19 09:00 Active 3,000 units PO DAILY Cyanocobalamin (Vitamin B12) [Vitamin B12] Med 02/14/19 09:00 Active 1,000 mcg PO DAILY Dextrose 5%-Lactated Ringers 1,000 ml Med 02/13/19 21:45 Active IV ASDIRECTED Levothyroxine [Synthroid] Med 02/14/19 09:00 Active 50 mcg PO ACBREAKFAST Multivitamins w-Iron/Ca/FA/Min [Thera M Plus] Med 02/14/19 09:00 Active 1 tab PO BID Pindolol Med 02/14/19 09:00 Active 5 mg PO DAILY Ranitidine [Zantac] Med 02/14/19 07:48 Active 150 mg PO DAILY PRN Sodium Chloride 0.9% [Normal Saline] 1,000 ml Med 02/13/19 18:30 Active IV ASDIRECTED Sodium Chloride 0.9% [Saline Flush] Med 02/13/19 18:23 Active 10 ml FLUSH ASDIRECTED PRN Triamcinolone Acetonide [Triamcinolone Acetonide 0.1% Med 02/14/19 07:48 Active Crm] 0 gm TOP BID PRN Vitamin B Complex Med 02/14/19 09:00 Active 1 each PO DAILY fentaNYL [Sublimaze] Med 02/13/19 21:45 Active 12.5 mcg IVPUSH Q2H PRN SCD [Sequential Compression Device] [OM.PC] Routine Oth 02/14/19 07:43 Ordered Code Status [Resuscitation Status] Stat Resus Stat 02/13/19 21:38 Ordered EKG 12 Lead [EK] Routine Ther 02/13/19 17:19 Ordered Medication Orders Albuterol (Ventolin Hfa) 0 gm INH QID PRN PRN Reason: Allergies Ascorbic Acid (Vitamin C) 500 mg PO DAILY [facility] Last Admin: 02/14/19 09:59 Dose: 500 mg Calcium Carbonate (Caltrate 600+D 1500 Mg-400 Units) 1 tab PO BID [facility] Last Admin: 02/14/19 09:59 Dose: 1 tab Cholecalciferol (Vitamin D3) 3,000 units PO DAILY [facility] Last Admin: 02/14/19 10:00 Dose: 3,000 units Cyanocobalamin (Vitamin B12) 1,000 mcg PO DAILY [facility] Last Admin: 02/14/19 09:59 Dose: 1,000 mcg Fentanyl (Sublimaze) 12.5 mcg IVPUSH Q2H PRN PRN Reason: Pain Last Admin: 02/14/19 01:29 Dose: 12.5 mcg Admin: 02/13/19 22:38 Dose: 12.5 mcg Sodium Chloride (Normal Saline) 1,000 mls @ 999 mls/hr IV ASDIRECTED [facility] Last Admin: 02/13/19 20:50 Dose: 999 mls/hr Dextrose/Lactated Ringer's (Dextrose 5%-Lactated Ringers) 1,000 mls @ 150 mls/ hr IV ASDIRECTED [facility] Last Admin: 02/14/19 05:05 Dose: 150 mls/hr Infusion: 02/14/19 04:35 Dose: 150 mls/hr Admin: 02/13/19 21:54 Dose: 150 mls/hr Levothyroxine Sodium (Synthroid) 50 mcg PO ACBREAKFAST [facility] Multivitamins/Minerals (Thera M Plus) 1 tab PO BID [facility] Last Admin: 02/14/19 10:00 Dose: 1 tab Pindolol (Pindolol) 5 mg PO DAILY [facility] Ranitidine HCl (Zantac) 150 mg PO DAILY PRN PRN Reason: HEARTBURN Sodium Chloride (Saline Flush) 10 ml FLUSH ASDIRECTED PRN PRN Reason: Keep Vein Open Last Admin: 02/13/19 19:25 Dose: 10 ml Triamcinolone Acetonide (Triamcinolone Acetonide 0.1% Crm) 0 gm TOP BID PRN PRN Reason: Rash Vitamin B Complex (Vitamin B Complex) 1 each PO DAILY [facility] Last Admin: 02/14/19 09:59 Dose: 1 each Assessment/Plan Comment:: Assessment: Spontaneous Splenic Rupture 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 Bedrest with histology assistant to Bathroom to avoid falling Check hemoglobin at 1700 today and 0500 in AM - 02/15/19 Restarted all home medications. Admission with plan of discharge if patient condition stable and improves 02/18/19 Tenisha Richmond 02/14/19
[2019-02-15] MEDS: Dextrose 5%-Lactated Ringers 1,000 ML IV SCH (02:51)
[2019-02-15] MEDS: fentaNYL 100 MCG/2 ML SDV IVPUSH PRN (04:41)
[2019-02-15] MEDS: Levothyroxine 50 MCG Tab PO SCH (07:54)
[2019-02-15] MEDS ORDERED: Sodium Chloride 0.9% 10 ML Syringe IV PRN (08:01)
[2019-02-15] MEDS ORDERED: HYDROmorphone 2 MG Tab PO PRN (08:02)
[2019-02-15] MEDS: Cholecalciferol (Vitamin D3) 1,000 Unit Tab PO SCH (09:36)
[2019-02-15] MEDS: Pindolol 10 MG Tab PO SCH (09:37)
[2019-02-15] MEDS: Cyanocobalamin (Vitamin B12) 1,000 MCG Tab PO SCH (09:37)
[2019-02-15] MEDS: Docusate Sodium 100 MG Cap PO SCH ×2 (09:38→20:15)
[2019-02-15] MEDS: Multivitamins with Iron/Calcium/Folic Acid/Minerals Tab PO SCH ×2 (09:38→20:15)
[2019-02-15] MEDS: Vitamin B Complex Tab PO SCH (09:38)
[2019-02-15] MEDS: Ascorbic Acid 500 MG Tab PO SCH (09:38)
[2019-02-15] MEDS: Calcium Carbonate/Vitamin D3 1500 MG-400 Units Tab PO SCH ×2 (09:39→20:15)
[2019-02-15] MEDS: MEGESTROL PO SCH (12:39)
[2019-02-16] MEDS: Levothyroxine 50 MCG Tab PO SCH (08:25)
[2019-02-16] MEDS: Calcium Carbonate/Vitamin D3 1500 MG-400 Units Tab PO SCH ×2 (08:26→20:22)
[2019-02-16] MEDS: Docusate Sodium 100 MG Cap PO SCH ×2 (08:26→20:22)
[2019-02-16] MEDS: Pindolol 10 MG Tab PO SCH (08:26)
[2019-02-16] MEDS: Multivitamins with Iron/Calcium/Folic Acid/Minerals Tab PO SCH ×2 (08:29→20:21)
[2019-02-16] MEDS: Vitamin B Complex Tab PO SCH (08:29)
[2019-02-16] MEDS: Cyanocobalamin (Vitamin B12) 1,000 MCG Tab PO SCH (08:29)
[2019-02-16] MEDS: MEGESTROL PO SCH (08:29)
[2019-02-16] MEDS: Cholecalciferol (Vitamin D3) 1,000 Unit Tab PO SCH (08:30)
[2019-02-16] MEDS: Ascorbic Acid 500 MG Tab PO SCH (08:30)
--- NOTE | 2019-02-16 11:50 | PN ---
DATE OF SERVICE: 02/15/2019 The patient has been clinically stable at this point with no further bleeding and her hemoglobin is stable at 11.0. She is having some abdominal discomfort, I think we will switch over to some oral Dilaudid rather than IV fentanyl and keep her on minimal activity today. We will begin getting her walking around a little bit more and she may be ready for discharge home on Sunday. Joseph Salazar MD /[id number]
--- NOTE | 2019-02-16 14:00 | PN ---
DATE OF SERVICE: 02/16/2019 The patient remains stable with hemoglobin actually increasing a little bit overnight. Today, with any activity restrictions other than some vigorous activity and recheck hemoglobin tomorrow. If she remains stable, she will be discharged home. Oral intake appeared to be improving somewhat with the Megace. Joseph Salazar MD /[id number]
[2019-02-17] MEDS: Levothyroxine 50 MCG Tab PO SCH (07:01)
[2019-02-17] MEDS: Docusate Sodium 100 MG Cap PO SCH (08:35)
[2019-02-17] MEDS: Pindolol 10 MG Tab PO SCH (08:35)
[2019-02-17] MEDS: Calcium Carbonate/Vitamin D3 1500 MG-400 Units Tab PO SCH (08:35)
[2019-02-17] MEDS: MEGESTROL PO SCH (08:36)
[2019-02-17] MEDS: Multivitamins with Iron/Calcium/Folic Acid/Minerals Tab PO SCH (08:36)
[2019-02-17] MEDS: Ascorbic Acid 500 MG Tab PO SCH (08:36)
[2019-02-17] MEDS: Cyanocobalamin (Vitamin B12) 1,000 MCG Tab PO SCH (08:36)
[2019-02-17] MEDS: Vitamin B Complex Tab PO SCH (08:36)
[2019-02-17] MEDS: Cholecalciferol (Vitamin D3) 1,000 Unit Tab PO SCH (08:36)
[2019-02-17 11:13] VITALS: BP 107/51
--- NOTE | 2019-02-18 15:29 | DISCH ---
ADMISSION DIAGNOSES: 1. Abdominal pain. 2. Spontaneous splenic rupture. 3. Malignant gastrointestinal stromal tumor of the stomach. 4. Partial gastrectomy. 5. Unspecified surgical malabsorption. 6. Hypothyroidism. 7. Mitral valve regurgitation. 8. Asthma. 9. Allergic rhinitis. 10.Osteoarthritis. 11.Vitamin D deficiency. DISCHARGE DIAGNOSIS: Spontaneous splenic rupture, stable. HISTORY: Gayatri Styles presented to the emergency room with severe abdominal pain on 02/13/2019. She was admitted to the hospital and her CT scan showed a spontaneous splenic rupture. She was placed on bedrest and monitored with assistance to the bathroom. IV fluids and hemoglobin were watched and remained to be stable. On 02/15/2019, she was clinically stable. No further bleeding. Hemoglobin was 11. She remained to have abdominal discomfort, but was switched from oral Dilaudid to IV fentanyl. On 02/16/2019, she remained stable. Hemoglobin did increase a little bit. Activity remained to be stable and she was able to be discharged on 02/17/2019. Hemoglobin this morning was 11.6, hematocrits was 35.6. She is on a regular diet and resumed all home medications. PHYSICAL EXAMINATION: GENERAL: Gayatri Styles is a pleasant 73-year-old female. VITAL SIGNS: Height is 5 feet 4.17 inches, weight is 120 pounds. TPR is 98.1, 86, 16, blood pressure 107/51. HEENT: Negative. NECK: Supple. HEART: Regular rate and rhythm. LUNGS: Clear. ABDOMEN: Remains to be slightly tender in the left upper quadrant. NEUROLOGIC: Intact. PSYCHIATRIC: Mood and affect appropriate. DISPOSITION: Discharged to home. CONDITION: Stable and improving. FOLLOWUP: Followup appointment with Joseph Salazar MD, at [facility] on 02/26/2019 at 11 a.m. MEDICATIONS: She is to resume home medications; albuterol 2 puffs 4 times a day; vitamin C 500 mg oral daily; calcium carbonate soft chews one oral twice daily; vitamin D3 3000 International Units daily; vitamin B12 1000 mcg sublingual daily; levothyroxine 50 mcg oral before breakfast; megestrol acetate 625 mg oral daily; multivitamin 1 tablet oral twice daily; [place]-3 one each daily; papaya enzyme 1 tablet three times a day p.r.n.; pindolol/Visken 5 mg oral daily; ranitidine 150 mg oral as directed; triamcinolone 0.1% cream 1 applicator topical twice daily p.r.n. rash; vitamin B complex one tablet oral daily. DISCHARGE DIET: Regular diet. Drink 8 to 10 glasses of water a day. ACTIVITY: No lifting over 10 pounds. Avoid repetitive bending. May shower. DISCHARGE INSTRUCTIONS: Notify provider if any fever, increased pain, nausea, or vomiting. Total time spent in discharge, 15 minutes.
== END 2019-02-17 12:30 | disposition home or self-care (01) | DRG 815 ==
LOC: JP.ED 16:47 → JP.MS 21:33 → OBSVTOIN 02-14 12:00
PROVIDERS: ADMIT Surgery; ATTEND Surgery
DX: D73.5 Infarction of spleen (principal); C49.A2 Gastrointestinal stromal tumor of stomach; K91.2 Postsurgical malabsorption, not elsewhere classified; R79.1 Abnormal coagulation profile; E03.9 Hypothyroidism, unspecified; I44.7 Left bundle-branch block, unspecified; Z90.3 Acquired absence of stomach [part of]; I34.0 Nonrheumatic mitral (valve) insufficiency; J45.909 Unspecified asthma, uncomplicated; R07.1 Chest pain on breathing; R10.11 Right upper quadrant pain; E55.9 Vitamin D deficiency, unspecified; E53.8 Deficiency of other specified B group vitamins; M19.90 Unspecified osteoarthritis, unspecified site; M54.9 Dorsalgia, unspecified; G89.29 Other chronic pain; Z87.440 Personal history of urinary (tract) infections; K21.9 Gastro-esophageal reflux disease without esophagitis; H54.7 Unspecified visual loss; Z88.1 Allergy status to other antibiotic agents; Z88.2 Allergy status to sulfonamides; Z88.8 Allergy status to other drugs, medicaments and biological substances; Z90.710 Acquired absence of both cervix and uterus; Z90.79 Acquired absence of other genital organ(s); Z90.722 Acquired absence of ovaries, bilateral
CPT/HCPCS: 36415 ×2; 71046; 71275; 74177; 80053 ×2; 81001; 83735; 84100; 84484; 85025 ×2; 85027; 85379; 86140; 93005; 96361 ×4; 96374; 96376; 99285; A9270 ×8; G0378 ×2; J3010 ×2; J7030 ×3; J7042 ×2; Q9967 ×2

== ENCOUNTER 2019-03-15 06:05 | Inpatient (IN) | payer MEDICARE, BC ==
[~2019-03-15 06:05] MED LIST changes: +Acetaminophen 500 MG Tab PO ONE; +Albuterol/Ipratropium 3.0-0.5 MG/3 ML Neb Soln NEB ONE; -Dexamethasone 4 MG/ML SDV ONE; +Dextrose 5%-Lactated Ringers 1,000 ML IV SCH; -Glycopyrrolate 0.2 MG/ML 5 ML MDV ONE; -Neostigmine Methylsulfate 1 MG/ML 5 ML Syringe ONE; -Ondansetron 4 MG/2 ML SDV ONE; -Propofol 200 MG/20 ML SDV ONE; -Rocuronium 50 MG/5 ML Vial ONE; -Succinylcholine 200 MG/10 ML MDV ONE; +cefOXitin 2 GM in Sodium Chloride 0.9% 50 ML IV ONE
[2019-03-15] MEDS ORDERED: Meropenem 500 MG SDV ONE ×2 (06:45→11:46)
[2019-03-15] MEDS ORDERED: Glycopyrrolate 0.2 MG/ML 5 ML MDV ONE (07:25)
[2019-03-15] MEDS ORDERED: Succinylcholine 200 MG/10 ML MDV ONE (07:25)
[2019-03-15] MEDS ORDERED: Rocuronium 50 MG/5 ML Vial ONE ×2 (07:25→09:59)
[2019-03-15] MEDS ORDERED: fentaNYL 250 MCG/5 ML SDV ONE ×2 (07:25→09:49)
[2019-03-15] MEDS ORDERED: Dexamethasone 4 MG/ML SDV ONE (07:25)
[2019-03-15] MEDS ORDERED: Ondansetron 4 MG/2 ML SDV ONE (07:25)
[2019-03-15] MEDS ORDERED: Propofol 200 MG/20 ML SDV ONE (07:25)
[2019-03-15] MEDS ORDERED: Neostigmine Methylsulfate 1 MG/ML 5 ML Syringe ONE (07:25)
[2019-03-15] MEDS ORDERED: HYDROmorphone/Normal Saline 15 MG/30 ML PCA IV PRN (08:46)
[2019-03-15] MEDS ORDERED: Naloxone 0.4 MG/ML SDV IV PRN (08:46)
[2019-03-15] MEDS ORDERED: Sodium Chloride 0.9% 10 ML ONE (09:29)
[2019-03-15] MEDS ORDERED: Lactated Ringers 1,000 ML ONE ×2 (10:18)
[2019-03-15] MEDS: Tranexamic Acid 800 MG in Sodium Chloride 0.9% 50 ML IV SCH ×2 (12:19→15:22)
[2019-03-15] MEDS ORDERED: fentaNYL 100 MCG/2 ML SDV ONE (13:24)
--- NOTE | 2019-03-15 13:24 | CRLCR ---
INDICATION: chest tube placement HISTORY: Chest tube placement. COMPARISON: CT of the chest 02/23/2019. TECHNIQUE: Chest one-view portable. FINDINGS: There are embolization coils present in the left upper quadrant, with a surgical drain or sponge material. There is a left-sided chest tube in place. There is no definite pneumothorax. No contralateral shift of mediastinal structures. The lung apices are collimated off the field of view. The patient is intubated. The endotracheal tube tip is 5.2 cm above the missy. Lateral costophrenic sulci are sharp. The chest tube overlies the 3rd anterolateral rib. IMPRESSION: 1. Left-sided chest tube as above. No pneumothorax. 2. ET tube is appropriately positioned above the missy. 3. Lung apices are collimated off the field of view. Dictated by Pillo Bullock MD @ 03/15/2019 1:21:40 PM Dictated by: Pillo Bullock MD @ 03/15/2019 13:21:44 (Electronically Signed)
--- NOTE | 2019-03-15 13:26 | CRLCR ---
INDICATION: check for instrumentssurgical mesh left abd. Indication: Check for instruments. Surgical mesh. Technique: Abdomen, 2 views. Comparison: CT of the abdomen and pelvis 03/13/2019. Findings: There is either a surgical drain or mesh present in the left upper quadrant of the abdomen. Anastomotic sutures are present in the left abdomen. No additional foreign body is seen. Nonobstructive bowel gas pattern. Osseous structures are intact. Impression: 1. Curvilinear foreign body with radiopaque coils in the left upper quadrant. This likely correlates with the reported history of a left upper quadrant surgical mesh. There associated anastomotic sutures in the left mid abdomen. 2. No additional foreign body is seen. Dictated by Pillo Bullock MD @ 03/15/2019 1:24:31 PM Dictated by: Pillo Bullock MD @ 03/15/2019 13:25:02 (Electronically Signed)
[2019-03-15] MEDS ORDERED: hydrOXYzine HCl 100 MG/2 ML SDV IM PRN (14:08)
[2019-03-15] MEDS ORDERED: Albuterol/Ipratropium 3.0-0.5 MG/3 ML Neb Soln INH PRN (14:09)
[2019-03-15] MEDS: Albuterol/Ipratropium 3.0-0.5 MG/3 ML Neb Soln INH SCH ×2 (15:29→20:25)
[2019-03-15] MEDS: cefOXitin 2 GM in Sodium Chloride 0.9% 50 ML IV SCH ×2 (15:41→20:25)
[2019-03-15] MEDS: Ondansetron 4 MG/2 ML SDV IVPUSH PRN ×2 (16:07→21:12)
[2019-03-15] MEDS: Acetaminophen 325 MG Tab PO SCH ×2 (16:13→21:09)
[2019-03-15] MEDS: Pantoprazole 40 MG Vial IV SCH (16:19)
[2019-03-15] MEDS: Dextrose 5%-Lactated Ringers 1,000 ML IV SCH ×2 (17:38→23:56)
[2019-03-16] MEDS: cefOXitin 2 GM in Sodium Chloride 0.9% 50 ML IV SCH ×4 (02:07→20:04)
[2019-03-16] MEDS: Acetaminophen 325 MG Tab PO SCH ×4 (03:07→21:05)
--- NOTE | 2019-03-16 04:31 | CRLCR ---
INDICATION: Chest tube TECHNIQUE: Chest 1 views COMPARISON: Chest x-ray 03/15/2019 FINDINGS: Cardiovascular and mediastinum: Heart size and vasculature are normal in caliber and appearance. Lungs and pleural spaces: Left-sided chest tube redemonstrated without definite pneumothorax. Retrocardiac atelectasis. Bones and soft tissues: Skin praful, mesh and left upper quadrant drains demonstrated. IMPRESSION: Left-sided chest tube without definite pneumothorax. Retrocardiac atelectasis. Dictated by Charly Rondon MD @ Mar 16 2019 4:28AM Signed by Dr. Charly Rondon @ Mar 16 2019 4:30AM
[2019-03-16] MEDS: Dextrose 5%-Lactated Ringers 1,000 ML IV SCH ×2 (05:49→14:32)
[2019-03-16] MEDS: Albuterol/Ipratropium 3.0-0.5 MG/3 ML Neb Soln INH SCH ×4 (07:43→20:04)
[2019-03-16] MEDS: Levothyroxine 50 MCG Tab PO SCH (07:59)
[2019-03-16] MEDS: Pindolol 10 MG Tab PO SCH (08:33)
[2019-03-16] MEDS: Ondansetron 4 MG/2 ML SDV IVPUSH PRN (09:23)
[2019-03-16] MEDS: MEGESTROL PO SCH (09:43)
[2019-03-16] MEDS: Potassium Phosphates 20 MMOLE in Sodium Chloride 0.9% 250 ML IV SCH ×3 (09:44→16:42)
[2019-03-16] MEDS: Magnesium Sulfate/Water 2 GM in Premix Bag 1 BAG IV SCH ×3 (09:45→21:05)
[2019-03-16] MEDS: Metoclopramide 10 MG/2 ML SDV IV PRN (09:49)
[2019-03-16] MEDS ORDERED: Naloxone 0.4 MG/ML SDV IV PRN (10:19)
[2019-03-16] MEDS: fentaNYL/Normal Saline 600 MCG/30 ML PCA Vial IV PRN (11:48)
[2019-03-16] MEDS: Pantoprazole 40 MG Vial IV SCH (16:32)
[2019-03-17] MEDS: Dextrose 5%-Lactated Ringers 1,000 ML IV SCH ×2 (01:11→19:36)
[2019-03-17] MEDS: cefOXitin 2 GM in Sodium Chloride 0.9% 50 ML IV SCH ×4 (02:11→20:54)
[2019-03-17] MEDS: Acetaminophen 325 MG Tab PO SCH ×4 (03:49→21:07)
[2019-03-17] MEDS: Magnesium Sulfate/Water 2 GM in Premix Bag 1 BAG IV SCH ×4 (03:50→21:07)
--- NOTE | 2019-03-17 05:06 | CRLCR ---
CHEST 1 VIEW AP INDICATION: Chest tube placement IMPRESSION: Normal heart size and vascular pattern. Lungs are clear of focal opacities. No pneumothorax or pleural abnormality. 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 Left basilar chest tube. Additional drain catheter left upper quadrant with midline abdominal surgical praful. Dictated by Juan Fenton MD @ Mar 17 2019 5:02AM Signed by Dr. Juan Fenton @ Mar 17 2019 5:04AM
[2019-03-17] MEDS: Albuterol/Ipratropium 3.0-0.5 MG/3 ML Neb Soln INH SCH ×4 (07:41→20:54)
[2019-03-17] MEDS: Levothyroxine 50 MCG Tab PO SCH (08:11)
[2019-03-17] MEDS: Pindolol 10 MG Tab PO SCH (08:12)
[2019-03-17] MEDS: MEGESTROL PO SCH (08:12)
[2019-03-17] MEDS ORDERED: Furosemide 20 MG/2 ML VIAL IVPUSH ONE (09:00)
[2019-03-17] MEDS: Potassium Phosphates 20 MMOLE in Sodium Chloride 0.9% 250 ML IV SCH ×3 (10:02→16:20)
--- NOTE | 2019-03-17 11:06 | PN ---
DATE OF SERVICE: 03/16/2019 The patient has a T-max of 100.1, that has cleared after some pulmonary toilet. Otherwise, she has been clinically stable. She is alert and has been able to get up in a chair. Respiratory status appears to be good. Chest x-ray looks good with the diaphragmatic repair remaining intact, and she had 80 mL out of the chest tube, which is slightly fluctuating, and no pleural effusion is evident. The patient had a little bit of nausea overnight, this has now cleared, and otherwise will begin a full liquid diet today. She will be restarting her Megace and will have a dietary consult in the morning regarding increasing calories and protein intake. Her phosphate and magnesium are marginally low. Those will be supplemented. Otherwise, we will back down the IV rate and work on pulmonary toilet and increasing activity. Joseph Salazar MD /[id number]
[2019-03-17] MEDS: Pantoprazole 40 MG Vial IV SCH (15:19)
--- NOTE | 2019-03-17 16:01 | OR ---
CORRECTED REPORT DATE OF PROCEDURE: 03/15/2019 PREOPERATIVE DIAGNOSIS: Spontaneous splenic rupture with increasing perisplenic hematoma. POSTOPERATIVE DIAGNOSES: 1. Spontaneous splenic rupture with increasing perisplenic hematoma. 2. 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 3. Extensive intra-abdominal adhesions. OPERATIVE PROCEDURES: Exploratory laparotomy with lysis of extensive adhesions: 1. Resection of mass (18 cm) involving hilum of spleen (88435) with drainage of hematoma and en bloc: a. Resection of spleen and a small portion of distal pancreas (74951). b. Resection of a portion of left diaphragm. 2. Partial left hepatic lobectomy (61367). 3. Resection of mass involving omentum of the left upper abdomen (4.6 cm). 4. Resection of mass adjacent to the sternum and underlying anterior abdominal wall (5.2 cm). 5. Resection of mass involving gastric lesser omentum (7.0 cm). 6. Closure of resected diaphragm with mesh augmentation (30043). 7. Left tube thoracostomy (06800). 8. Placement of Interceed mesh to limit recurrent adhesion between the pelvic and abdominal wall and underlying viscera (21486). ANESTHESIA: General. INDICATION FOR PROCEDURE: This is a 73-year-old status post esophagogastrectomy for resection of the proximal gastric gastrointestinal stromal tumor. The patient had generally been doing fairly well. Around 3 or 4 weeks ago, she went on an airplane trip and was quite active and doing stretching motions not normally required. During the trip, she developed increasing pain in the left upper abdomen. This initially was felt to be related to some stretching of the adhesions as such. This week she had increasing pain and had some sense of fullness in that area, and a CT scan was obtained which showed a picture of a markedly enlarged perisplenic hematoma and given this being quite painful at this point, the plan is to proceed with an exploratory laparotomy and splenectomy along with drainage of the hematoma. We will obviously be looking for any evidence of recurrence of the gastrointestinal stromal tumor concurrently. Potential risks per se including bleeding, infection, and injury to underlying viscera were reviewed and the patient wishes to proceed. OPERATIVE FINDINGS: Upon entering the abdomen, the patient had extensive adhesions between the omentum and the anterior abdominal and pelvic wall. Eventually, the findings included splenic rupture and perisplenic hematoma, but also a large mass measuring up to 18 cm, consistent with a recurrence of the gastrointestinal stromal tumor. This was located in the hilum of the spleen and which was resected en bloc. The patient also had 3 additional intraperitoneal recurrences, one in the omentum in the left upper quadrant, 1 adjacent to the sternum just underlying the peritoneum of the anterior abdominal wall and 1 in the gastric omentum. The patient also appeared to have what appeared to be a hematogenous metastasis to the left lobe of liver. The mass in the hilum of the sleen was densely adherent to the central portion of the left diaphragm requiring the area to be resected as well. At the conclusion of the procedure there was no gross tumor left in place, but obviously the patient at this point would be very extremely high risk for recurrences both in the intraperitoneal location as well as in the left pleural space. DETAILS OF PROCEDURE: The patient was taken to the operating room and after general endotracheal anesthesia was induced, a Yip catheter was inserted, and the abdomen prepped and draped. The previously used upper midline incision was then reused through the skin, subcutaneous tissue, and fascia intraperitoneal location. Pretty extensive adhesions between the omentum and the anterior abdominal wall and extending down into the pelvis were taken down. Upon initial exploration, the above findings as outlined were eventually identified. At this point, the masses involving the omentum, anterior abdominal wall, left of the sternum as well as gastric lesser omentum were all resected. The resection of these involved small margin of the abdominal tissue where they were attached. Much of the surfaces of the tumor were primarily exposed without any particular attachments. Once these areas were resected, attention was taken to the area of the spleen. During the course of this dissection, large hematoma on the spleen was evacuated, and the mass on the hilum of the spleen which was measured 18 cm in maximal dimension was identified. The lateral peritoneal reflection of the spleen as well as splenocolic ligament were then divided and the mass including the spleen, distal pancreas, and the above-mentioned mass in the hilum, and spleen were mobilized upward. At the central area of the left diaphragm, this mass was densely adherent to the diaphragm. A portion of the diaphragm was resected en bloc with that area. Once this area was mobilized upward, the vascular attachments in the spleen were divided with QASIM praful. The point where the stapler came across the splenic vessels included a small portion of the distal pancreas as well. This mass was then delivered from the field. At this point, the left pleural space was irrigated with copious amounts of sterile water containing meropenem. Water was used for irrigation in this case to try to provide some potential lysis of any free tumor cells that would be present. Once this was accomplished in the left pleural space as well as the left upper abdomen, a primary closure of the diaphragm was accomplished with running 0 Prolene stitch. This closure was felt to be at significant risk for rupture and given this, the repair was augmented with a Phasix ST mesh. This rectangular shaped mesh which covered the diaphragmatic repair with margin around 5 cm in all directions was then affixed to the diaphragm with titanium tacking screws. The mesh was oriented such that the Seprafilm side of the mesh faced the intraabdominal location. Following this, then a tube thoracostomy was placed in the left anterolateral chest wall. This was a 36-Bengali chest tube and was placed and retracted posteriorly and sutured to the skin with #2 Ethibond stitch. At this point, no further problems were noted. Some bleeding from the retroperitoneum or in the area of the dissection around the spleen was noted, and this was controlled with some sutures as well as some fibrin sealant. Two Lauro-Garcia drains were then placed with stab wounds in the left subcostal area, one placed in the far posterior aspect of the splenic fossa and one across the area of the splenic vessels and pancreatic division. The patient was felt to be at risk for significant adhesion formation between the pelvic and abdominal wall and given the fact that she may at some point need to have secondary laparotomy for treatment, an Interceed mesh was placed between the abdominal and pelvic wall thus these structures from underlying viscera to limit recurrent adhesion formation. The midline fascia was then approximated with #2 Vicryl stitch, the subcutaneous tissue with 4-0 Vicryl stitch, and the skin with praful. Dressing was applied. The patient was taken to the recovery room in satisfactory condition. Joseph Salazar MD /[id number]
[2019-03-18] MEDS: Acetaminophen 325 MG Tab PO SCH ×4 (03:03→21:43)
[2019-03-18] MEDS: cefOXitin 2 GM in Sodium Chloride 0.9% 50 ML IV SCH ×4 (03:03→20:18)
[2019-03-18] MEDS: Magnesium Sulfate/Water 2 GM in Premix Bag 1 BAG IV SCH ×4 (03:04→21:43)
--- NOTE | 2019-03-18 04:17 | CRLCR ---
Indication: Chest tube Technique: Chest 1 view Comparison: 03/17/19. Findings/Impression: Cardiovascular and mediastinum: Stable cardiomediastinal silhouette. Lungs and pleural space: A left chest tube again seen with the tip in the lateral left mid lung. Persistent left basilar retrocardiac atelectasis. No gross pleural effusions. Bones and soft tissues: Postsurgical changes again seen in the upper abdomen. Dictated by Adiel Baeza MD @ 03/18/2019 4:16:02 AM Dictated by: Adiel Baeza MD @ 03/18/2019 04:16:07 (Electronically Signed)
[2019-03-18] MEDS: Albuterol/Ipratropium 3.0-0.5 MG/3 ML Neb Soln INH SCH ×4 (07:10→20:18)
--- NOTE | 2019-03-18 09:04 | PN ---
DATE OF SERVICE: 03/17/2019 The patient has been afebrile with stable vital signs. Her pressure is a little bit high this morning. We will give her some IV Lasix with this finding, as well as the BNP being up somewhat. Otherwise, chest x-ray looks good with the diaphragmatic repair appearing to remain intact. The nausea is better when she switched from Dilaudid to fentanyl [employer]. Chest tube putting out 300 mL that is clear, and otherwise urine output has been quite high over 2 L. The patient is not tolerant of milk products. Dietary will work on that today in terms of what supplements to use, and otherwise, the patient will be transferred to second floor to continue ongoing increased activity and work with pulmonary toilet. Joseph Salazar MD /[id number]
[2019-03-18] MEDS: Levothyroxine 50 MCG Tab PO SCH (10:00)
[2019-03-18] MEDS: Pindolol 10 MG Tab PO SCH (10:02)
[2019-03-18] MEDS: MEGESTROL PO SCH (10:04)
[2019-03-18] MEDS: Pantoprazole 40 MG Tab.CR PO SCH (12:10)
[2019-03-18] MEDS: Dextrose 5%-Lactated Ringers 1,000 ML IV SCH (13:08)
[2019-03-18] MEDS: MVI, Adult with Vitamin K 10 ML, Chromium/Copper/Mang/Selen/Zn 1 ML in Dextrose 5%-Lact... IV SCH ×3 (15:05)
[2019-03-19] MEDS: cefOXitin 2 GM in Sodium Chloride 0.9% 50 ML IV SCH ×4 (03:30→21:19)
[2019-03-19] MEDS: Acetaminophen 325 MG Tab PO SCH ×4 (03:58→21:19)
[2019-03-19] MEDS: Magnesium Sulfate/Water 2 GM in Premix Bag 1 BAG IV SCH (03:59)
--- NOTE | 2019-03-19 06:12 | CRLCR ---
INDICATION: Follow up chest tube. TECHNIQUE: Portable view of the chest. COMPARISON: March 18, 2019. FINDINGS: Single left-sided chest tube in good position. There is a very tiny left apical pneumothorax. Surgical drain left upper quadrant. Surgical praful mid anterior abdomen. Retrocardiac infiltrate or atelectasis left lower lobe. Clear right lung. Overall heart size is normal. Impression : Tiny left apical pneumothorax. Left-sided chest tube and surgical drain left upper quadrant. Persistent left retrocardiac infiltrate or atelectasis. Dictated by Joseph Gibbs MD @ Mar 19 2019 6:06AM Signed by Dr. Joseph Gibbs @ Mar 19 2019 6:09AM
[2019-03-19] MEDS: Albuterol/Ipratropium 3.0-0.5 MG/3 ML Neb Soln INH SCH ×4 (07:22→21:19)
[2019-03-19] MEDS: Levothyroxine 50 MCG Tab PO SCH (07:37)
[2019-03-19] MEDS: Pantoprazole 40 MG Tab.CR PO SCH (07:37)
[2019-03-19] MEDS: MEGESTROL PO SCH (08:46)
[2019-03-19] MEDS: Pindolol 10 MG Tab PO SCH (08:47)
[2019-03-19] MEDS ORDERED: Potassium Phosphates 30 MMOLE in Sodium Chloride 0.9% 250 ML IV ONE (10:00)
[2019-03-19] MEDS: Dextrose 5%-Lactated Ringers 1,000 ML IV SCH (13:50)
[2019-03-19] MEDS: MVI, Adult with Vitamin K 10 ML, Chromium/Copper/Mang/Selen/Zn 1 ML in Dextrose 5%-Lact... IV SCH ×3 (15:43)
[2019-03-20] MEDS: cefOXitin 2 GM in Sodium Chloride 0.9% 50 ML IV SCH ×4 (03:51→20:00)
[2019-03-20] MEDS: Acetaminophen 325 MG Tab PO SCH ×4 (03:52→22:16)
--- NOTE | 2019-03-20 04:58 | CRLCR ---
Indication: Chest tube Technique: Chest 1 view Comparison: 03/19/2019. Findings/Impression: Cardiovascular and mediastinum: Stable cardiomediastinal silhouette. Lungs and pleural space: A left chest tube again seen. A possible small apical pneumothorax again noted. A persistent retrocardiac density. Bones and soft tissues: Postsurgical changes again seen in the left upper quadrant. Upper abdominal skin praful. Dictated by Adiel Baeza MD @ 03/20/2019 4:57:55 AM Dictated by: Adiel Baeza MD @ 03/20/2019 04:58:00 (Electronically Signed)
[2019-03-20] MEDS: Albuterol/Ipratropium 3.0-0.5 MG/3 ML Neb Soln INH SCH ×4 (07:23→20:00)
--- NOTE | 2019-03-20 08:16 | PN ---
DATE OF SERVICE: 03/18/2019 The patient has been afebrile with stable vital signs. Oral intake remains fairly scant, and we will work on increasing that today. Otherwise, no major problems were noted. The chest tube output is around 300 mL, and chest x-ray continues to look good. Her I&O, given her major losses, is roughly balanced. The plan will be to have the patient seen by Dietary daily. Her albumin is 1.9. We will supplement albumin daily for 3 days and add trace elements to the IV fluids once a day as well, and continue to maximize activity and work with pulmonary toilet. We will work on getting a Medical Oncology appointment for followup of a gastrointestinal stromal tumor recurrence. Joseph Salazar MD /[id number]
--- NOTE | 2019-03-20 08:22 | PN ---
DATE OF SERVICE: 03/19/2019 The patient has been afebrile with stable vital signs. She appears to be in very good spirits today. Oral intake was a little bit better yesterday, around 640 mL. She seems to have found that Ensure Clear goes quite well. She did move her bowels. We will order regular diet, which will allow her to order anything she wants off of the menu, but we will continue the supply of many Ensure Clears or other supplements that she can take. One bottle of Ensure Clear, which is quite small, is 240 calories and 8 grams of protein. These are, at this point, a very good supplement. Potassium and phosphate are marginally low, and these will be supplemented today. Otherwise, labs look unremarkable. The chest tube output was 130 mL. We are probably getting close to being able to get that out. We will otherwise maximize activity and work with pulmonary toilet. The plan will be to review the case with Medical Oncology to initiate followup and a plan. Joseph Salazra MD /[id number]
[2019-03-20] MEDS: Levothyroxine 50 MCG Tab PO SCH (08:30)
[2019-03-20] MEDS: Pantoprazole 40 MG Tab.CR PO SCH (08:30)
[2019-03-20] MEDS: Pindolol 10 MG Tab PO SCH (08:31)
[2019-03-20] MEDS: MEGESTROL PO SCH (08:32)
[2019-03-20] MEDS: Dextrose 5%-Lactated Ringers 1,000 ML IV SCH (11:15)
--- NOTE | 2019-03-20 11:16 | PN ---
DATE OF SERVICE: 03/20/2019 SUBJECTIVE: Gayatri is postoperative day 5 following a splenectomy. She was moved up from ICU yesterday. Oral intake 1160. Urine output was 1950. Chest tube, she had 180 mL out. REYNA drain 1 put out 95, REYNA drain 2 put out 20 mL, both of a light pink serosanguineous drainage. She has had 25% of breakfast, lunch, and dinner. Last bowel movement was 03/19/2019. She states her pain is controlled. She has been up ambulating, did shower last evening. REVIEW OF SYSTEMS: Remainder of review of systems negative for any pertinent positives and negatives. OBJECTIVE: GENERAL: Gayatri Styles is a pleasant 73-year-old female. VITAL SIGNS: TPR is 98.9, 81, 12, blood pressure 112/52. HEENT: Negative. NECK: Supple. HEART: Regular rate and rhythm. LUNGS: Clear. ABDOMEN: Dressings dry and intact. Abdominal binder is on. Chest tube dressing is intact. EXTREMITIES: Without peripheral edema. ASSESSMENT: 1. Exploratory laparotomy with lysis of extensive adhesions. a. Resection of mass 18 cm involving hilum of the spleen and drainage of hematoma and en bloc. 2. Resection of spleen and a small portion of distal pancreas. 3. Resection of portion of left diaphragm. 4. Partial left hepatic lobectomy. 5. Resection of mass involving omentum of the left upper abdomen. 6. Resection of mass adjacent to the sternum and underlying anterior abdominal wall. 7. Resection of mass involving gastric, lesser omentum (7.0 cm). 8. Closure of resected diaphragm with mesh augmentation. 9. Left tube thoracostomy. 10.Placement of Interceed mesh to limit recurrent adhesion between the pelvic and abdominal wall and underlining viscera. Date of surgery 03/15/2019. Surgeon, Joseph Salazar MD. PLAN: 1. Check amylase on REYNA drain 1. 2. Check amylase on REYNA drain 2. 3. Communication order written to schedule an appointment with Dr. Menard, Oncology, next Sunday03/26/2019 at [facility]. 4. Check CBC, CMP, mag, phos in a.m. 5. Good pulmonary toilet. 6. We will evaluate p.r.n. or in a.m. Tenisha Horton PA-C /[id number]
[2019-03-20] MEDS: MVI, Adult with Vitamin K 10 ML, Chromium/Copper/Mang/Selen/Zn 1 ML in Dextrose 5%-Lact... IV SCH ×3 (15:44)
[2019-03-20] MEDS: Ondansetron 4 MG/2 ML SDV IVPUSH PRN (19:50)
[2019-03-21] MEDS: Metoclopramide 10 MG/2 ML SDV IV PRN ×2 (01:36→07:05)
[2019-03-21] MEDS: Ondansetron 4 MG/2 ML SDV IVPUSH PRN ×2 (01:36→05:14)
[2019-03-21] MEDS: fentaNYL/Normal Saline 600 MCG/30 ML PCA Vial IV PRN (02:32)
[2019-03-21] MEDS: cefOXitin 2 GM in Sodium Chloride 0.9% 50 ML IV SCH (04:00)
--- NOTE | 2019-03-21 05:30 | CRLCR ---
Indication: Chest tube. Technique: Chest 1 view Comparison: 03/20/19. Findings/Impression: Cardiovascular and mediastinum: Stable cardiomediastinal silhouette. Lungs and pleural space: A left chest tube again noted. A possible small left apical pneumothorax. Mildly improved retrocardiac aeration. Bones and soft tissues: No significant change. Dictated by Adiel Baeza MD @ 03/21/2019 5:28:25 AM Dictated by: Adiel Baeza MD @ 03/21/2019 05:28:30 (Electronically Signed)
[2019-03-21] MEDS: Acetaminophen 325 MG Tab PO SCH ×4 (05:47→23:11)
[2019-03-21] MEDS: Albuterol/Ipratropium 3.0-0.5 MG/3 ML Neb Soln INH SCH ×4 (07:12→20:21)
[2019-03-21] MEDS: Scopolamine 1.5 MG Transdermal Patch TRDERM PRN (07:23)
[2019-03-21] MEDS: Dextrose 5%-Lactated Ringers 1,000 ML IV SCH (08:40)
[2019-03-21] MEDS: Pantoprazole 40 MG Tab.CR PO SCH (09:06)
[2019-03-21] MEDS: Levothyroxine 50 MCG Tab PO SCH (09:06)
--- NOTE | 2019-03-21 09:19 | PN ---
DATE OF SERVICE: 03/21/2019 SUBJECTIVE: Gayatri has been nauseated only and she has had no emesis. She has been on Zofran and Reglan. Denies that the [employer] fentanyl is causing any problems with the nausea. Does have a history of benign paroxysmal positional vertigo. She is not sure if that is playing a role in her nausea or not. Vital signs have been stable. TPR is 99, 98, 16, blood pressure 138/69, O2 by pulse oximetry is 95% on room air. Oral intake in the past 24 hours, 960. Urine output, 2000. Chest tube, 120. She consumed 50% of breakfast, 50% of lunch, and it looks like 50% of her dinner. The nausea started during the middle of the night, had one small bowel movement. She is not passing flatus, reports feeling quite bloated, and she states she is burping a lot. REVIEW OF SYSTEMS: Remainder of review of systems negative for any pertinent positives and negatives. OBJECTIVE: GENERAL: Gayatri Styles is a 73-year-old female. Color pale. VITAL SIGNS: As above. HEENT: Negative. NECK: Supple. HEART: Regular rate and rhythm. LUNGS: Chest tube intact. Decreased breath sounds bilaterally, but she is unable to take a deep breath due to nausea. ABDOMEN: Distended. No bowel sounds are heard. EXTREMITIES: Without peripheral edema. ASSESSMENT: 1. Nausea, early postop ileus. 2. Exploratory laparotomy, lysis of extensive adhesions. a. Resection of mass, 18 cm, involving hilum of the spleen and drainage of hematoma and en bloc. b. Resection of spleen and portion of the distal pancreas. c. Resection of portion of left diaphragm. d. Partial left hepatic lobectomy. e. Resection of mass involving omentum over the left upper. f. Resection of mass adjacent to the sternum and underlying anterior. g. Resection of mass involving gastric, lesser omentum, 7.0 cm. h. Closure of resected diaphragm with mesh augmentation. i. Left tube thoracotomy. j. Placement of interested mesh to limit recurrent adhesion between the pelvic and abdominal wall and underlying viscera. Date of surgery: 03/15/2019. Surgeon: Joseph Salazar MD. PLAN: 1. Schedule and have consent signed for placement of Olvera catheter, IV/local sedation in a.m., Sunday03/22/2019. N.p.o. after midnight. Surgeon: Joseph Salazar MD. 2. Chest tube to be taken out in a.m. 3. Scopolamine patch to be placed now. 4. Discontinue cefoxitin. 5. Dulcolax suppositories one b.i.d. until having BM. 6. To check abdominal x-ray flat and upright. 7. We will evaluate p.r.n. or in a.m. 8. The plan with Olvera catheter is to give some TPN nutrition. Tenisha Horton PA-C /[id number]
[2019-03-21] MEDS: Bisacodyl 10 MG Supp RECTAL SCH ×2 (10:02→20:23)
[2019-03-21] MEDS: MEGESTROL PO SCH (10:03)
[2019-03-21] MEDS: Magnesium Sulfate/Water 2 GM in Premix Bag 1 BAG IV SCH ×3 (10:03→23:10)
[2019-03-21] MEDS: Pindolol 10 MG Tab PO SCH (10:04)
[2019-03-21] MEDS: LORazepam 2 MG/ML SDV IVPUSH PRN ×2 (10:52→21:13)
--- NOTE | 2019-03-21 11:10 | CRLCR ---
Indication: Nausea. Postop ileus. Technique: Abdomen 2 view Comparison: March 15, 2019. Findings/Impression: Postoperative changes including a drainage catheter in the left upper quadrant are unchanged. Minimal bowel distension is consistent with an ileus. No significant colonic stool. No other significant findings or changes. Dictated by Paolo Donald MD @ Mar 21 2019 11:01AM Signed by Dr. Paolo Donald @ Mar 21 2019 11:09AM
[2019-03-21] MEDS: Metoclopramide 10 MG/2 ML SDV IV SCH ×2 (14:14→20:22)
[2019-03-21] MEDS ORDERED: MVI, Adult with Vitamin K 10 ML, Chromium/Copper/Mang/Selen/Zn 1 ML in Dextrose 5%-Lact... IV SCH ×3 (16:00)
--- NOTE | 2019-03-21 19:55 | PCM.CONS ---
H&P History of Present Illness - General Date of Service: 03/21/19 Admit Problem/Dx: Admission Diagnosis/Problem Admission Diagnosis/Problem Splenic rupture Source of Information: Patient, RN Notes Reviewed History Limitations: Reports: No Limitations - History of Present Illness Initial Comments - Free Text/Narative: Ms. Styles is a 73-year-old woman who I been asked to see by Dr. Salazar for further suggestions concerning evaluation and management of nausea. She has a known history of a gastrointestinal stromal tumor with previous resection. Ms. Styles underwent exploratory laparotomy for treatment of a recent clinic hematoma identified on CT scan. She was also found to have recurrent and extensive tumor involvement in the abdomen. The surgery was very involved with extensive resection of adhesions, splenectomy, partial liver resection, as well as resection of multiple other areas of tumor involvement. During the postoperative course she is had ongoing ileus with persistent symptoms of nausea and vomiting. She has received Zofran, Reglan, and a scopolamine patch, with persistent symptoms despite this aggressive therapy. Abdominal Pain Score (Numeric/FACES): 7 - Related Data Allergies/Adverse Reactions: Allergies Allergy/AdvReac Type Severity Reaction Status Date / Time clopidogrel Allergy Unknown Rash Verified 03/14/19 10:30 erythromycin base Allergy Unknown Rash Verified 03/14/19 10:30 [Erythromycin Base] Sulfa (Sulfonamide AdvReac Unknown Rash Verified 03/14/19 10:30 Antibiotics) ciprofloxacin AdvReac Muscle Verified 03/14/19 10:30 Aches hydromorphone [From Dilaudid] AdvReac Nausea Verified 03/16/19 11:58 hyoscyamine AdvReac Dizziness Verified 03/14/19 10:30 levofloxacin [From Levaquin] AdvReac Muscle Verified 03/14/19 10:30 Aches Home Medications: Home Meds Albuterol [Ventolin HFA] 2 puff INH QID PRN 03/15/19 [History] Ascorbic Acid 500 mg PO BID 03/15/19 [History] Calcium Carbonate/Vitamin D3 [Calcium 600 + Vit D 200] 1 tab PO BID 03/15/19 [ History] Cholecalciferol (Vitamin D3) [Vitamin D3] 1,000 unit PO DAILY 03/15/19 [History] Cyanocobalamin (Vitamin B-12) [Vitamin B-12] 1,000 mcg PO DAILY 03/15/19 [ History] Fish Oil/Smiley-3 Fatty Acids [Fish Oil 1,000 MG] 1 gm PO DAILY 03/15/19 [History ] Levothyroxine [Synthroid] 50 mcg PO DAILY 03/15/19 [History] Megestrol Acetate [Megace Es] 1 dose PO DAILY 03/15/19 [History] Multivitamin [Multi-Vitamin Daily] 1 tab PO DAILY 03/15/19 [History] Omeprazole 40 mg PO DAILY 03/15/19 [History] Papaya [Papaya Enzyme] 1 tab PO TID 03/15/19 [History] Pindolol 5 mg PO DAILY 03/15/19 [History] Ranitidine HCl [Zantac] 150 mg PO BEDTIME 03/15/19 [History] Triamcinolone Acetonide [Triamcinolone Acetonide 0.1% Crm] 1 applic TOP BID PRN 03/15/19 [History] oxyCODONE 5 - 10 mg PO Q4H PRN 03/15/19 [History] Past Medical History - Past Health History Medical/Surgical History: Denies Medical/Surgical History HEENT History: Reports: Allergic Rhinitis, Impaired Vision Cardiovascular History: Reports: Other (See Below) Other Cardiovascular History: ASD closure, MITRAL VALVE THICKENING Gastrointestinal History: Reports: GERD, Hemorrhoids Genitourinary History: Reports: UTI, Recurrent Other Genitourinary History: pt ? having UTI HORSE SHOER History: Reports: Dysfunctional Uterine Bleeding, Other OB/BYN History: hx of hystectomy Musculoskeletal History: Reports: Back Pain, Chronic, Osteoarthritis Neurological History: Reports: Vertigo Psychiatric History: Reports: Depression Endocrine/Metabolic History: Reports: Hypothyroidism Hematologic History: Reports: Anemia, B12 Deficiency, Blood Transfusion(s), Iron Deficiency, Transfusion Reaction Oncologic (Cancer) History: Reports: Other (See Below) Other Oncologic History: ABDOMEN MASS Dermatologic History: Reports: Other (See Below) Other Dermatologic History: skin rashes - Infectious Disease History Infectious Disease History: Reports: Chicken Pox, Measles, Mumps - Past Surgical History HEENT Surgical History: Reports: Detached Retina Cardiovascular Surgical History: Reports: Other (See Below) Other Cardiovascular Surgeries/Procedures: ASD closure- 2012 GI Surgical History: Reports: Appendectomy, Colonoscopy, EGD, Other (See Below) Other GI Surgeries/Procedures: mass in stomach Female Surgical History: Reports: Hysterectomy, Salpingo-Oophorectomy Endocrine Surgical History: Reports: None Neurological Surgical History: Reports: None Musculoskeletal Surgical History: Reports: None Oncologic Surgical History: Reports: Other (See Below) Other Oncologic Surgeries/Procedures: MASS REMOVAL Dermatological Surgical History: Reports: None Social & Family History - Family History Family Medical History: Noncontributory - Tobacco Use Smoking Status *Q: Never Smoker - Caffeine Use Caffeine Use: Reports: None - Recreational Drug Use Recreational Drug Use: No H&P Review of Systems - Review of Systems: Review Of Systems: See Below Pulmonary: Reports: No Symptoms Cardiovascular: Reports: No Symptoms Gastrointestinal: Reports: Abdominal Pain, Distension, Nausea, Vomiting. Denies : Constipation, Diarrhea, Flatus Exam - Exam Exam: See Below - Vital Signs Vital Signs: Last Vital Signs Temp 99.3 F 03/21/19 15:00 Pulse 104 H 03/21/19 15:00 Resp 16 03/21/19 15:00 BP 139/64 03/21/19 15:00 Pulse Ox 95 03/21/19 19:26 Weight: 129 lb 13.636 oz - Exam Neck: Supple, Trachea Midline, +2 Carotid Pulse wo Bruit Lungs: Clear to Auscultation, Normal Respiratory Effort Cardiovascular: Regular Rate, Regular Rhythm, Normal S1, Normal S2. No: Systolic Murmur, Diastolic Murmur GI/Abdominal Exam: Soft, No Organomegaly, Distended, Tender. No: Guarding, Rigid, Rebound Extremities: Non-Tender, No Pedal Edema - Patient Data Lab Results Last 24 hrs: Laboratory Results - last 24 hr 03/21/19 03/21/19 Range/Units 04:20 04:20 WBC 13.0 H (4.5-11.0) K/uL RBC 3.95 (3.30-5.50) M/uL Hgb 11.4 L (12.0-15.0) g/dL Hct 35.6 L (36.0-48.0) % MCV 90 (80-98) fL MCH 29 (27-31) pg MCHC 32 (32-36) % Plt Count 472 H (150-400) K/uL Sodium 137 L (140-148) mmol/L Potassium 4.1 (3.6-5.2) mmol/L Chloride 105 (100-108) mmol/L Carbon Dioxide 22 (21-32) mmol/L Anion Gap 14.1 H (5.0-14.0) mmol/L BUN 17 (7-18) mg/dL Creatinine 1.0 (0.6-1.0) mg/dL Est Cr Clr Drug Dosing 44.88 mL/min Estimated GFR (MDRD) 55 L (>60) Glucose 126 H (74-106) mg/dL Calcium 9.6 (8.5-10.1) mg/dL Phosphorus 2.8 (2.5-4.9) mg/dL Magnesium 1.7 L (1.8-2.4) mg/dL Total Bilirubin 0.8 D (0.2-1.0) mg/dL AST 16 (15-37) U/L ALT 27 (12-78) U/L Alkaline Phosphatase 67 (46-116) U/L Total Protein 6.9 (6.4-8.2) g/dL Albumin 3.6 (3.4-5.0) g/dL Globulin 3.3 (2.3-3.5) g/dL Albumin/Globulin Ratio 1.1 L (1.2-2.2) Result Diagrams: 03/21/19 04:20 03/21/19 04:20 Consult PN Assessment/Plan Procedures: Procedures AIRWAY INHALATION TREATMENT (04/05/18) ASSAY OF AMYLASE (04/10/15) ASSAY OF LACTIC ACID (03/30/18) ASSAY OF LIPASE (03/30/18) ASSAY OF MAGNESIUM (02/14/19) ASSAY OF NATRIURETIC PEPTIDE (04/05/18) ASSAY OF PHOSPHORUS (02/14/19) ASSAY OF TROPONIN QUANT (02/14/19) ASSAY THYROID STIM HORMONE (04/05/18) BLOOD TYPING SEROLOGIC ABO (03/13/19) BLOOD TYPING SEROLOGIC RH(D) (03/13/19) C-REACTIVE PROTEIN (02/14/19) CANALITH REPOSITIONING PROC (04/19/15) COMPLETE CBC AUTOMATED (02/14/19) COMPLETE CBC W/AUTO DIFF WBC (02/14/19) COMPREHEN METABOLIC PANEL (02/14/19) CT ABD & PELV W/CONTRAST (03/13/19) CT ANGIOGRAPHY CHEST (02/14/19) CT HEAD/BRAIN W/O DYE (07/27/17) CT THORAX W/DYE (11/25/18) CULTURE SCREEN ONLY (04/02/18) EGD BIOPSY SINGLE/MULTIPLE (04/02/18) EGD DIAGNOSTIC BRUSH WASH (08/09/18) ELECTROCARDIOGRAM TRACING (02/14/19) EMERGENCY DEPT VISIT (02/14/19) EMERGENCY DEPT VISIT (03/30/18) EMERGENCY DEPT VISIT (03/30/18) EMERGENCY DEPT VISIT (07/14/17) EMERGENCY DEPT VISIT (01/04/17) EMERGENCY DEPT VISIT (04/10/15) EMERGENCY DEPT VISIT (04/10/15) ESOPH EGD DILATION <30 MM (06/18/18) EXTREMITY STUDY (12/24/15) FIBRIN DEGRADATION QUANT (02/14/19) HYDRATE IV INFUSION ADD-ON (02/14/19) HYDRATION IV INFUSION INIT (03/30/18) MANUAL THERAPY 1/> REGIONS (09/26/17) MEASURE BLOOD OXYGEN LEVEL (04/05/18) METABOLIC PANEL TOTAL CA (01/04/17) MICROBE SUSCEPTIBLE ASHLEY (03/30/18) MRI JNT OF LWR EXTRE W/O DYE (01/12/16) NEUROMUSCULAR REEDUCATION (04/05/17) OT EVALUATION (04/19/15) PT EVAL LOW COMPLEX 20 MIN (08/06/17) PT EVAL MOD COMPLEX 30 MIN (01/05/17) PT EVALUATION (02/03/16) RBC ANTIBODY SCREEN (03/13/19) ROUTINE VENIPUNCTURE (02/14/19) THER/PROPH/DIAG INJ IV PUSH (02/14/19) THER/PROPH/DIAG IV INF ADDON (09/20/18) THER/PROPH/DIAG IV INF INIT (09/20/18) THERAPEUTIC ACTIVITIES (04/19/15) THERAPEUTIC EXERCISES (08/06/17) TX/PRO/DX INJ NEW DRUG ADDON (01/04/17) TX/PRO/DX INJ SAME DRUG MECHANICAL DETAILER (02/14/19) ULTRASOUND THERAPY (09/26/17) URINALYSIS AUTO W/SCOPE (02/14/19) URINE BACTERIA CULTURE (03/30/18) URINE CULTURE/COLONY COUNT (03/30/18) X-RAY EXAM CHEST 2 VIEWS (02/14/19) X-RAY UPPER GI DELAY W/O KUB (04/05/18) Problem List Initiated/Reviewed/Updated: Yes My Orders Last 24 Hours: My Active Orders 03/21/19 10:43 LORazepam [Ativan] 0.5 mg IVPUSH Q4H PRN Plan: ASSESSMENT AND RECOMMENDATIONS SEVERE NAUSEA SECONDARY TO ILEUS-despite extensive therapy she has had ongoing symptoms of nausea and vomiting. She was given a trial dose of lorazepam 0.5 mg with good results, although the medication was sedating as would be expected. -Continue current medications for nausea -Lorazepam 0.5 mg IV every 4 hours as needed for management of nausea -Continue continuous pulse oximeter when receiving the benzodiazepine and narcotics -If symptoms of nausea persist consider placement of NG tube STATUS POST EXPLORATORY LAPAROTOMY WITH EXTENSIVE INTERVENTION -Postoperative care per Dr. Salazar Requesting Provider: LUIS Date Consult Requested: 03/21/19 Reason for Consult: Resistant nausea secondary to ileus Patient History Reviewed: Yes
[2019-03-22] MEDS: Magnesium Sulfate/Water 2 GM in Premix Bag 1 BAG IV SCH ×4 (03:18→22:44)
[2019-03-22] MEDS: Metoclopramide 10 MG/2 ML SDV IV SCH ×4 (03:18→20:07)
[2019-03-22] MEDS: Acetaminophen 325 MG Tab PO SCH ×5 (03:20→22:48)
--- NOTE | 2019-03-22 05:41 | CRLCR ---
Indication: Chest tube Technique: Chest 1 view Comparison: 03/21/2019. Findings/Impression: Cardiovascular and mediastinum: Stable cardiomediastinal silhouette. Lungs and pleural space: A left chest tube in stable position. An apparent left apical pneumothorax again seen. Persistent retrocardiac opacity. Bones and soft tissues: No significant change. Dictated by Adiel Baeza MD @ 03/22/2019 5:40:05 AM Dictated by: Adiel Baeza MD @ 03/22/2019 05:40:09 (Electronically Signed)
[2019-03-22] MEDS ORDERED: Lidocaine 1% with EPINEPHrine 1:100,000 50 ML MDV ONE (07:08)
[2019-03-22] MEDS ORDERED: Bupivacaine 0.5% 50 ML MDV ONE (07:08)
[2019-03-22] MEDS: Albuterol/Ipratropium 3.0-0.5 MG/3 ML Neb Soln INH SCH ×4 (07:14→20:07)
[2019-03-22] MEDS ORDERED: fentaNYL 100 MCG/2 ML SDV ONE (07:51)
[2019-03-22] MEDS ORDERED: Propofol 200 MG/20 ML SDV ONE (07:51)
[2019-03-22] MEDS ORDERED: Midazolam 1 MG/ML 2 ML SDV ONE (07:51)
[2019-03-22] MEDS ORDERED: Linezolid 600 MG in Premix Bag 1 BAG IV ONE (08:00)
[2019-03-22] MEDS: Pantoprazole 40 MG Tab.CR PO SCH (10:17)
[2019-03-22] MEDS: Levothyroxine 50 MCG Tab PO SCH (10:17)
[2019-03-22] MEDS: Bisacodyl 10 MG Supp RECTAL SCH ×2 (10:18→20:07)
[2019-03-22] MEDS: Pindolol 10 MG Tab PO SCH (10:18)
[2019-03-22] MEDS: MEGESTROL PO SCH (10:19)
[2019-03-22] MEDS ORDERED: Dextrose 5%-Lactated Ringers 1,000 ML IV SCH (12:00)
[2019-03-22] MEDS: 1: AA 5%/Calcium/D15W/Lytes 1,000 ML with MVI, Adult with Vitamin K 10 ML, Chromium/Copp IV SCH ×6 (12:59→23:40)
--- NOTE | 2019-03-22 14:53 | PCM.CONSN ---
- General Info Date of Service: 03/22/19 Subjective Update: Ms. Styles appears significantly improved over the last 24 hours, much less nausea. Episodes of nausea and they do occur have been well managed with lorazepam. She is started to pass more gas and his had a few small bowel movements. - Review of Systems General: Reports: Weakness. Denies: Fever, Chills Pulmonary: Reports: No Symptoms Cardiovascular: Reports: No Symptoms Gastrointestinal: Reports: Abdominal Pain, Nausea, Vomiting. Denies: Difficulty Swallowing, Hematochezia, Melena - Patient Data Vitals - Most Recent: Last Vital Signs Temp 97.6 F 03/22/19 14:41 Pulse 83 03/22/19 14:41 Resp 16 03/22/19 14:41 BP 93/62 03/22/19 14:41 Pulse Ox 97 03/22/19 12:57 Weight - Most Recent: 129 lb 13.636 oz I&O - Last 24 Hours: Intake & Output 03/21/19 03/22/19 03/22/19 22:59 06:59 14:59 Intake Total 615 900 300 Output Total 477 781 7452 Balance 190 285 -1050 Med Orders - Current: Current Medications Acetaminophen (Tylenol) 650 mg PO Q6H [facility] Last Admin: 03/22/19 10:18 Dose: 650 mg Albuterol/Ipratropium (Duoneb 3.0-0.5 Mg/3 Ml) 3 ml INH QIDRT [facility] Last Admin: 03/22/19 14:32 Dose: 3 ml Albuterol/Ipratropium (Duoneb 3.0-0.5 Mg/3 Ml) 3 ml INH ASDIRECTED PRN PRN Reason: Shortness of Breath Bisacodyl (Dulcolax) 10 mg RECTAL BID [facility] Last Admin: 03/22/19 10:18 Dose: 10 mg Fentanyl Citrate (Fentanyl In Ns 20 Mcg/Ml 30 Ml Screw Remover) 0 mcg IV ASDIRECTED PRN; Protocol PRN Reason: Pain Last Admin: 03/21/19 02:32 Dose: 600 mcg Hydroxyzine HCl (Vistaril) 75 mg IM Q4H PRN PRN Reason: PAIN Last Admin: 03/21/19 02:01 Dose: 75 mg Magnesium Sulfate 2 gm/ Premix 50 mls @ 25 mls/hr IV Q6H [facility] Stop: 03/23/19 05:59 Last Admin: 03/22/19 09:23 Dose: 25 mls/hr Dextrose/Lactated Ringer's (Dextrose 5%-Lactated Ringers) 1,000 mls @ 0 mls/hr IV ASDIRECTED [facility] Multivitamins/Minerals 10 ml/Chromium/Copper/Manganese/Seleni/Zn 1 ml/ Amino Ac/ Electrol/Dextrose/Calcium 1,011 mls @ 100 mls/hr IV .BY DURATION [facility] Last Admin: 03/22/19 12:59 Dose: 100 mls/hr Amino Ac/Electrol/Dextrose/Calcium (Clinimix E 02/19) 1,000 mls @ 100 mls/hr IV .BY DURATION [facility] Levothyroxine Sodium (Synthroid) 50 mcg PO ACBREAKFAST [facility] Last Admin: 03/22/19 10:17 Dose: 50 mcg Lorazepam (Ativan) 0.5 mg IVPUSH Q4H PRN PRN Reason: Nausea Last Admin: 03/21/19 21:13 Dose: 0.5 mg Metoclopramide HCl (Reglan) 10 mg IV Q6H [facility] Last Admin: 03/22/19 14:37 Dose: 10 mg Naloxone HCl (Narcan) 0.1 mg IV ASDIRECTED PRN PRN Reason: decreased respiratory rate Ondansetron HCl (Zofran) 4 mg IVPUSH Q4H PRN PRN Reason: Nausea/Vomiting Last Admin: 03/21/19 05:14 Dose: 4 mg Pantoprazole Sodium (Protonix) 40 mg PO DAILY@0730 [facility] Last Admin: 03/22/19 10:17 Dose: 40 mg Mesestrol Oral Susp (625mg/5ml (Ptom)) 0 each PO DAILY [facility] Last Admin: 03/22/19 10:19 Dose: Not Given Pindolol (Pindolol) 5 mg PO DAILY [facility] Last Admin: 03/22/19 10:18 Dose: 5 mg Scopolamine (Transderm-Scop) 1.5 mg TRDERM Q72H PRN PRN Reason: Nausea Last Admin: 03/21/19 07:23 Dose: 1.5 mg Discontinued Medications Acetaminophen (Tylenol Extra Strength) 1,000 mg PO ONETIME ONE Stop: 03/15/19 06:01 Last Admin: 03/15/19 07:31 Dose: 1,000 mg Albuterol/Ipratropium (Duoneb 3.0-0.5 Mg/3 Ml) 3 ml NEB ONETIME ONE Stop: 03/15/19 06:01 Last Admin: 03/15/19 07:31 Dose: 3 ml Bupivacaine HCl (Marcaine 0.5%) Confirm Administered Dose 50 ml .ROUTE .STK-MED ONE Stop: 03/22/19 07:09 Last Admin: 03/22/19 09:51 Dose: 5 ml Ropivacaine 27 ml/Dexamethasone 8 mg/Epinephrine HCl 0.4 mg/ Sodium Chloride 50.6 ml 0 ml NERVRT ASDIRECTED SUELLEN Last Admin: 03/15/19 10:02 Dose: 80 syringe Dexamethasone (Dexamethasone) Confirm Administered Dose 4 mg .ROUTE .STK-MED ONE Stop: 03/15/19 07:26 Fentanyl (Sublimaze) Confirm Administered Dose 250 mcg .ROUTE .STK-MED ONE Stop: 03/15/19 07:26 Fentanyl (Sublimaze) Confirm Administered Dose 250 mcg .ROUTE .STK-MED ONE Stop: 03/15/19 09:50 Fentanyl (Sublimaze) Confirm Administered Dose 100 mcg .ROUTE .STK-MED ONE Stop: 03/15/19 13:25 Fentanyl (Sublimaze) Confirm Administered Dose 100 mcg .ROUTE .STK-MED ONE Stop: 03/22/19 07:52 Furosemide (Lasix) 10 mg IVPUSH ONETIME ONE Stop: 03/17/19 09:01 Last Admin: 03/17/19 08:11 Dose: 10 mg Glycopyrrolate (Robinul) Confirm Administered Dose 1 mg .ROUTE .STK-MED ONE Stop: 03/15/19 07:26 Heparin Sodium (Porcine) (Heparin Lock Flush 100 Units/Ml) Confirm Administered Dose 1,500 units .ROUTE .STK-MED ONE Stop: 03/22/19 07:09 Last Admin: 03/22/19 09:52 Dose: 1,500 units Hydromorphone HCl (Dilaudid Screw Remover 15 Mg In Ns 30 Ml) 0 mg IV ASDIRECTED PRN; Protocol PRN 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 Last Admin: 03/15/19 08:53 Dose: 15 mg Cefoxitin Sodium 2 gm/ Sodium (Chloride) 50 mls @ 100 mls/hr IV ONETIME ONE Stop: 03/15/19 06:29 Last Admin: 03/15/19 08:51 Dose: 100 mls/hr Dextrose/Lactated Ringer's (Dextrose 5%-Lactated Ringers) 1,000 mls @ 100 mls/ hr IV ASDIRECTED [facility] Last Admin: 03/15/19 06:27 Dose: 100 mls/hr Sodium Chloride (Normal Saline) Confirm Administered Dose 10 mls @ as directed .ROUTE .[facility] ONE Stop: 03/15/19 09:30 Lactated Ringer's (Ringers, Lactated) Confirm Administered Dose 1,000 mls @ as directed .ROUTE .[facility] ONE Stop: 03/15/19 10:19 Lactated Ringer's (Ringers, Lactated) Confirm Administered Dose 1,000 mls @ as directed .ROUTE .[facility] ONE Stop: 03/15/19 10:19 Linezolid (Zyvox) Confirm Administered Dose 300 mls @ as directed .ROUTE .[facility] ONE Stop: 03/15/19 11:48 Tranexamic Acid 800 mg/ Sodium (Chloride) 58 mls @ 232 mls/hr IV Q3H [facility] Stop: 03/15/19 15:44 Last Admin: 03/15/19 15:22 Dose: 232 mls/hr Dextrose/Lactated Ringer's (Dextrose 5%-Lactated Ringers) 1,000 mls @ 175 mls/ hr IV ASDIRECTED [facility] Last Admin: 03/16/19 05:49 Dose: 175 mls/hr Cefoxitin Sodium 2 gm/ Sodium (Chloride) 50 mls @ 100 mls/hr IV Q6H [facility] Last Admin: 03/21/19 04:00 Dose: 100 mls/hr Dextrose/Lactated Ringer's (Dextrose 5%-Lactated Ringers) 1,000 mls @ 100 mls/ hr IV ASDIRECTED [facility] Last Admin: 03/17/19 01:11 Dose: 100 mls/hr Magnesium Sulfate 2 gm/ Premix 50 mls @ 25 mls/hr IV Q6H [facility] Stop: 03/19/19 05:59 Last Admin: 03/19/19 03:59 Dose: 25 mls/hr Potassium Phosphate 20 mmole/ (Sodium Chloride) 256.6667 mls @ 85.556 mls/hr IV Q3H [facility] Stop: 03/16/19 18:29 Last Admin: 03/16/19 16:42 Dose: 85.556 mls/hr Dextrose/Lactated Ringer's (Dextrose 5%-Lactated Ringers) 1,000 mls @ 60 mls/ [facility] Last Admin: 03/18/19 13:08 Dose: 60 mls/hr Potassium Phosphate 20 mmole/ (Sodium Chloride) 256.6667 mls @ 85 mls/hr IV Q3H [facility] Stop: 03/17/19 18:59 Last Admin: 03/17/19 16:20 Dose: 85 mls/hr Multivitamins/Minerals 10 ml/Chromium/Copper/Manganese/Seleni/Zn 1 ml/ Dextrose/ Lactated Ringer's 1,011 mls @ 60.66 mls/hr IV DAILY@1600 [facility] Last Admin: 03/20/19 15:44 Dose: 60.66 mls/hr Albumin Human (Albumin 25%) 25 gm in 100 mls @ 25 mls/hr IV Q24H [facility] Stop: 03/20/19 15:59 Last Admin: 03/20/19 11:11 Dose: 25 mls/hr Albumin Human (Albumin 25%) 25 gm in 100 mls @ 25 mls/hr IV Q24H [facility] Stop: 03/20/19 19:59 Last Admin: 03/20/19 15:26 Dose: 25 mls/hr Dextrose/Lactated Ringer's (Dextrose 5%-Lactated Ringers) 1,000 mls @ 50 mls/ [facility] Last Admin: 03/21/19 08:40 Dose: 50 mls/hr Potassium Phosphate 30 mmole/ (Sodium Chloride) 260 mls @ 50 mls/hr IV ONETIME ONE Stop: 03/19/19 15:11 Last Admin: 03/19/19 11:02 Dose: 50 mls/hr Multivitamins/Minerals 10 ml/Chromium/Copper/Manganese/Seleni/Zn 1 ml/ Dextrose/ Lactated Ringer's 1,011 mls @ 50 mls/hr IV DAILY@1600 [facility] Last Admin: 03/21/19 15:45 Dose: 50 mls/hr Linezolid 600 mg/ Premix 300 mls @ 300 mls/hr IV ONETIME ONE Stop: 03/22/19 08:59 Last Admin: 03/22/19 07:46 Dose: 300 mls/hr Lidocaine/Epinephrine (Xylocaine 1% With Epinephrine 1:100,000) Confirm Administered Dose 50 ml .ROUTE .STK-MED ONE Stop: 03/22/19 07:09 Last Admin: 03/22/19 09:52 Dose: 5 ml Linezolid (Zyvox) 600 mg IRR .STK-MED ONE Stop: 03/15/19 11:56 Last Admin: 03/15/19 11:55 Dose: 600 mg Meropenem (Merrem) Confirm Administered Dose 500 mg .ROUTE .STK-MED ONE Stop: 03/15/19 06:46 Last Admin: 03/15/19 10:16 Dose: 500 mg Meropenem (Merrem) Confirm Administered Dose 500 mg .ROUTE .STK-MED ONE Stop: 03/15/19 11:47 Last Admin: 03/15/19 11:55 Dose: 500 mg Metoclopramide HCl (Reglan) 5 mg IV Q6H PRN PRN Reason: Nausea Last Admin: 03/21/19 07:05 Dose: 5 mg Midazolam HCl (Versed 1 Mg/Ml) Confirm Administered Dose 2 mg .ROUTE .STK-MED ONE Stop: 03/22/19 07:52 Naloxone HCl (Narcan) 0.1 mg IV ASDIRECTED PRN PRN Reason: decreased respiratory rate Neostigmine Methylsulfate (Neostigmine) Confirm Administered Dose 5 mg .ROUTE .STK-MED ONE Stop: 03/15/19 07:26 Ondansetron HCl (Zofran) Confirm Administered Dose 4 mg .ROUTE .STK-MED ONE Stop: 03/15/19 07:26 Pantoprazole Sodium (Protonix Iv) 40 mg IV Q24H [facility]UE[facility] Last Admin: 03/17/19 15:19 Dose: 40 mg Propofol (Diprivan 20 Ml) Confirm Administered Dose 200 mg .ROUTE .STK-MED ONE Stop: 03/15/19 07:26 Propofol (Diprivan 20 Ml) Confirm Administered Dose 200 mg .ROUTE .STK-MED ONE Stop: 03/22/19 07:52 Rocuronium Creighton (Zemuron) Confirm Administered Dose 50 mg .ROUTE .STK-MED ONE Stop: 03/15/19 07:26 Rocuronium [place]ighton (Zemuron) Confirm Administered Dose 50 mg .ROUTE .STK-MED ONE Stop: 03/15/19 10:00 Succinylcholine Chloride (Quelicin) Confirm Administered Dose 200 mg .ROUTE .K -MED ONE Stop: 03/15/19 07:26 - Exam General: Alert, Oriented, Cooperative, Mild Distress Lungs: Clear to Auscultation, Normal Respiratory Effort Cardiovascular: Regular Rate, Regular Rhythm, No Murmurs GI/Abdominal Exam: Soft, No Organomegaly, Tender. No: Distended, Guarding, Rigid, Rebound Extremities: Non-Tender, No Pedal Edema Consult PN Assessment/Plan Procedures: Procedures AIRWAY INHALATION TREATMENT (04/05/18) ASSAY OF AMYLASE (04/10/15) ASSAY OF LACTIC ACID (03/30/18) ASSAY OF LIPASE (03/30/18) ASSAY OF MAGNESIUM (02/14/19) ASSAY OF NATRIURETIC PEPTIDE (04/05/18) ASSAY OF PHOSPHORUS (02/14/19) ASSAY OF TROPONIN QUANT (02/14/19) ASSAY THYROID STIM HORMONE (04/05/18) BLOOD TYPING SEROLOGIC ABO (03/13/19) BLOOD TYPING SEROLOGIC RH(D) (03/13/19) C-REACTIVE PROTEIN (02/14/19) CANALITH REPOSITIONING PROC (04/19/15) COMPLETE CBC AUTOMATED (02/14/19) COMPLETE CBC W/AUTO DIFF WBC (02/14/19) COMPREHEN METABOLIC PANEL (02/14/19) CT ABD & PELV W/CONTRAST (03/13/19) CT ANGIOGRAPHY CHEST (02/14/19) CT HEAD/BRAIN W/O DYE (07/27/17) CT THORAX W/DYE (11/25/18) CULTURE SCREEN ONLY (04/02/18) EGD BIOPSY SINGLE/MULTIPLE (04/02/18) EGD DIAGNOSTIC BRUSH WASH (08/09/18) ELECTROCARDIOGRAM TRACING (02/14/19) EMERGENCY DEPT VISIT (02/14/19) EMERGENCY DEPT VISIT (03/30/18) EMERGENCY DEPT VISIT (03/30/18) EMERGENCY DEPT VISIT (07/14/17) EMERGENCY DEPT VISIT (01/04/17) EMERGENCY DEPT VISIT (04/10/15) EMERGENCY DEPT VISIT (04/10/15) ESOPH EGD DILATION <30 MM (06/18/18) EXTREMITY STUDY (12/24/15) FIBRIN DEGRADATION QUANT (02/14/19) HYDRATE IV INFUSION ADD-ON (02/14/19) HYDRATION IV INFUSION INIT (03/30/18) MANUAL THERAPY 1/> REGIONS (09/26/17) MEASURE BLOOD OXYGEN LEVEL (04/05/18) METABOLIC PANEL TOTAL CA (01/04/17) MICROBE SUSCEPTIBLE ASHLEY (03/30/18) MRI JNT OF LWR EXTRE W/O DYE (01/12/16) NEUROMUSCULAR REEDUCATION (04/05/17) OT EVALUATION (04/19/15) PT EVAL LOW COMPLEX 20 MIN (08/06/17) PT EVAL MOD COMPLEX 30 MIN (01/05/17) PT EVALUATION (02/03/16) RBC ANTIBODY SCREEN (03/13/19) ROUTINE VENIPUNCTURE (02/14/19) THER/PROPH/DIAG INJ IV PUSH (02/14/19) THER/PROPH/DIAG IV INF ADDON (09/20/18) THER/PROPH/DIAG IV INF INIT (09/20/18) THERAPEUTIC ACTIVITIES (04/19/15) THERAPEUTIC EXERCISES (08/06/17) TX/PRO/DX INJ NEW DRUG ADDON (01/04/17) TX/PRO/DX 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 More importantly it appears that the ileus is resolving, she has started to pass more gas and had a few small bowel movements. -Continue current medications for nausea -Lorazepam 0.5 mg IV every 4 hours as needed for management of nausea -Continue continuous pulse oximeter when receiving the benzodiazepine and narcotics STATUS POST EXPLORATORY LAPAROTOMY WITH EXTENSIVE INTERVENTION -Postoperative care per Dr. Salazar Hospitalist service will sign off and the patient at this time, if we can be of further assistance in medical management during this hospital stay please feel free to reconsult.
[2019-03-23] MEDS: Metoclopramide 10 MG/2 ML SDV IV SCH ×4 (01:59→20:45)
[2019-03-23] MEDS: Magnesium Sulfate/Water 2 GM in Premix Bag 1 BAG IV SCH (03:56)
[2019-03-23] MEDS: Acetaminophen 325 MG Tab PO SCH ×4 (04:20→22:02)
--- NOTE | 2019-03-23 05:26 | CRLCR ---
Indication: Chest tube removal Technique: Chest 2 views Comparison: 03/22/2019. Findings/Impression: Cardiovascular and mediastinum: Stable cardiomediastinal silhouette. Lungs and pleural spaces: Interval removal of the previously seen left chest tube. A persistent small left apical pneumothorax again seen. A lateral left basilar opacity, increased, which could represent an infiltrates/atelectasis, focal hemorrhage and/or pleural effusion. Persistent retrocardiac atelectasis or scarring. Bones and soft tissues: Abdominal postsurgical changes again seen. A central catheter with the tip in the proximal SVC. Dictated by Adiel Baeza MD @ 03/23/2019 5:24:15 AM Dictated by: Adiel Baeza MD @ 03/23/2019 05:24:19 (Electronically Signed)
[2019-03-23] MEDS: Albuterol/Ipratropium 3.0-0.5 MG/3 ML Neb Soln INH SCH ×4 (07:09→20:45)
[2019-03-23] MEDS: Pantoprazole 40 MG Tab.CR PO SCH (07:26)
[2019-03-23] MEDS: Levothyroxine 50 MCG Tab PO SCH (07:26)
[2019-03-23] MEDS ORDERED: Magnesium Hydroxide 400 MG/5 ML Susp 30 ML Cup PO PRN (08:25)
[2019-03-23] MEDS ORDERED: Magnesium Hydroxide 400 MG/5 ML Susp 30 ML Cup PO ONE (09:00)
[2019-03-23] MEDS: Bisacodyl 5 MG Tab PO SCH ×2 (09:31→20:45)
[2019-03-23] MEDS: 1: AA 5%/Calcium/D15W/Lytes 1,000 ML with MVI, Adult with Vitamin K 10 ML, Chromium/Copp IV SCH ×6 (09:31→22:01)
[2019-03-23] MEDS: Pindolol 10 MG Tab PO SCH (09:31)
[2019-03-23] MEDS: Docusate Sodium 100 MG Cap PO SCH ×2 (09:32→20:45)
[2019-03-23] MEDS: MEGESTROL PO SCH (09:38)
[2019-03-24] MEDS: Metoclopramide 10 MG/2 ML SDV IV SCH ×4 (03:00→20:12)
[2019-03-24] MEDS: Acetaminophen 325 MG Tab PO SCH ×4 (03:00→22:41)
[2019-03-24] MEDS: Pantoprazole 40 MG Tab.CR PO SCH (07:30)
[2019-03-24] MEDS ORDERED: Central Total Parenteral Nutrition Bag SCH (07:30)
[2019-03-24] MEDS: Levothyroxine 50 MCG Tab PO SCH (07:30)
[2019-03-24] MEDS: Albuterol/Ipratropium 3.0-0.5 MG/3 ML Neb Soln INH SCH ×5 (07:40→21:06)
[2019-03-24] MEDS: Pindolol 10 MG Tab PO SCH (08:47)
[2019-03-24] MEDS: MEGESTROL PO SCH (08:48)
[2019-03-24] MEDS: Bisacodyl 5 MG Tab PO SCH ×2 (08:48→20:15)
[2019-03-24] MEDS: Docusate Sodium 100 MG Cap PO SCH ×2 (08:48→20:15)
--- NOTE | 2019-03-24 11:12 | PN ---
DATE OF SERVICE: 03/24/2019 SUBJECTIVE: Gayatri has had less nausea, had a large BM, continues on TPN. Vital signs have been stable. Oral intake in the past 24 hours was 800 and urine output 1150. REYNA drains have put out 40 and 40, respectively. REVIEW OF SYSTEMS: Remainder of review of systems negative for any pertinent positives and negatives. OBJECTIVE: GENERAL: Makenna Styles is a pleasant 73-year-old female. She is looking much better, alert, oriented. Color remains to be pale, but has improved. VITAL SIGNS: TPR is 96.8, 82, 15. Blood pressure 118/53. HEENT: Negative. NECK: Supple. HEART: Regular rate and rhythm. LUNGS: Clear. ABDOMEN: Negative. Dressings dry and intact. REYNA drains intact as above. EXTREMITIES: Without peripheral edema. ASSESSMENT: 1. Status post nausea. 2. Exploratory laparotomy, lysis of extensive adhesions. a. Resection of mass, 18 cm, involving hilum of the spleen and drainage of hematoma and en bloc. b. Resection of spleen and portion of the distal pancreas. c. Resection of a portion of left diaphragm. d. Partial left hepatic lobectomy. e. Resection of mass involving omentum over the left upper. f. Resection of mass adjacent to the sternum and underlining anterior. g. Resection of mass involving gastric lesser omentum, 7.0 cm. h. Closure of resected diaphragm with mesh augmentation. i. Left tube thoracotomy. j. Placement of Interceed mesh to limit recurrent adhesion between the pelvic and abdominal wall and underlying viscera. Date of surgery 03/15/2019. Surgeon, Joseph Salazar MD. PLAN: 1. Decrease TPN to 40 mL/hour, discontinue in a.m. 2. Appointment to be set up. Communication order written with Oncology tomorrow, 03/25/2019. 3. 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 4. Discontinue REYNA drains, to give a bump of SQUIRREL WORKER before drain removal. 5. Good pulmonary toilet. We will evaluate p.r.n. or in a.m. Tenisha Horton PA-C /[id number]
[2019-03-24] MEDS ORDERED: 1: AA 5%/Calcium/D15W/Lytes 1,000 ML with MVI, Adult with Vitamin K 10 ML, Chromium/Copp IV SCH ×3 (14:00)
[2019-03-25] MEDS: Metoclopramide 10 MG/2 ML SDV IV SCH (01:41)
[2019-03-25] MEDS: Ondansetron 4 MG/2 ML SDV IVPUSH PRN (02:19)
[2019-03-25] MEDS: Acetaminophen 325 MG Tab PO SCH ×4 (04:14→21:35)
--- NOTE | 2019-03-25 05:23 | CRLCR ---
Indication: Chest 2 Technique: Chest 1 view Comparison: March 23, 2019 Findings/Impression: No chest tube identified. Minimal atelectasis or infiltrate at the left lung base, unchanged. Trace amount of left pleural fluid. No pneumothorax. Left-sided central venous catheter tip terminates at the level of the distal superior vena cava. Stable cardiac size. Skin praful project over the epigastric region. Dictated by Jennifer Golden MD @ Mar 25 2019 5:21AM Signed by Dr. Jennifer Golden @ Mar 25 2019 5:22AM
[2019-03-25] MEDS: Scopolamine 1.5 MG Transdermal Patch TRDERM PRN (06:32)
[2019-03-25] MEDS: Albuterol/Ipratropium 3.0-0.5 MG/3 ML Neb Soln INH SCH ×4 (07:14→21:35)
[2019-03-25] MEDS ORDERED: Ondansetron 4 MG Tab.DIS PO PRN (07:36)
[2019-03-25] MEDS: Pantoprazole 40 MG Tab.CR PO SCH (08:01)
[2019-03-25] MEDS: Levothyroxine 50 MCG Tab PO SCH (08:01)
[2019-03-25] MEDS: Bisacodyl 5 MG Tab PO SCH ×2 (08:02→21:35)
[2019-03-25] MEDS: MEGESTROL PO SCH (08:02)
[2019-03-25] MEDS: Pindolol 10 MG Tab PO SCH (08:02)
[2019-03-25] MEDS: Docusate Sodium 100 MG Cap PO SCH ×2 (08:02→21:35)
[2019-03-25] MEDS: Metoclopramide 10 MG Tab PO SCH ×3 (09:44→21:35)
[2019-03-25] MEDS ORDERED: 1: AA 5%/Calcium/D15W/Lytes 1,000 ML with MVI, Adult with Vitamin K 10 ML, Chromium/Copp IV SCH ×3 (10:30)
[2019-03-25] MEDS: 1: AA 5%/Calcium/D15W/Lytes 1,000 ML with MVI, Adult with Vitamin K 10 ML, Chromium/Copp IV SCH ×3 (11:20)
[2019-03-25] MEDS ORDERED: Fat Emulsion 100 ML IV ONE (12:00)
--- NOTE | 2019-03-25 12:46 | OR ---
DATE OF PROCEDURE: 03/22/2019 PREOPERATIVE DIAGNOSIS: Indication for central venous access. POSTOPERATIVE DIAGNOSIS: Indication for central venous access. OPERATIVE PROCEDURE: Insertion of double-lumen Olvera catheter via left subclavian vein approach ([id number]). ANESTHESIA: Local plus IV sedation. INDICATION FOR PROCEDURE: The patient is now 1 week status post a major resection for recurrent gastrointestinal stromal tumor. Thus far, we have not been able to establish satisfactory continued oral intake, and at this point, she would appear to benefit from a central line for IV hyperalimentation. Plan is to proceed with a Olvera catheter. Potential risks including bleeding, infection, injury to the vasculature or lung during the process were all reviewed, and the patient wishes to proceed. DETAILS OF PROCEDURE: The patient was taken to the operating room and placed in a supine position. IV sedation was administered, after which the upper chest and neck areas were prepped and draped. The left subclavian area was then anesthetized with 1% lidocaine mixed with Marcaine and left subclavian vein cannulated. Guidewire passed from there into the subclavian vein through the innominate vein area and to the level of the junction of the superior vena cava and right atrium. Some additional local was then injected and stab wounds roughly 4 fingerbreadths below the original puncture site and chest wall was made and tunnel created between the 2 incisions, which allowed pulling the Olvera catheter through that area. Catheter was then cut such that the tip would lie in the area of the superior vena cava right atrial junction and it was then positioned without difficulty with the introducer and peel-away catheter. The catheter was then secured to skin access site with a 3-0 nylon stitch and the primary site for the initial puncture was closed with subdermal stitch of 4-0 Vicryl stitch and Steri- Strips applied. Both ports were aspirated and good return was noted and the area was then flushed with heparinized saline. Dressing applied. The patient was taken to the recovery room in satisfactory condition. There were no evident complications. Joseph Salazar MD /[id number]
--- NOTE | 2019-03-25 13:07 | PN ---
DATE OF SERVICE: 03/22/2019 The patient's nausea has improved quite a bit overnight. She had some emesis last night, but is feeling fairly good this morning. I think we could restart some oral intake. Olvera catheter was placed, and we will start TPN today as well. Otherwise, maximize her activity and work with pulmonary toilet. We will restart diet focusing on Ensure Clear, which she seems to like fairly well. We will continue . Joseph Salazar MD /[id number]
--- NOTE | 2019-03-25 13:49 | PN ---
DATE OF SERVICE: 03/23/2019 The patient has been afebrile with stable vital signs. She had a much better day yesterday, and her nausea appears to be largely abating. Her oral intake was around 960 mL. Given this, we will back down on her TPN to 82 mL/hr and then will get her bowels moving today. We will contact Medical Oncology on Sunday regarding possibility of seeing the patient in the hospital, if she is still in the hospital at that point. Joseph Salazar MD /[id number]
--- NOTE | 2019-03-25 15:09 | PN ---
DATE OF SERVICE: 03/25/2019 The patient has been afebrile with stable vital signs. She was somewhat more nauseated overnight, and as it turned out, the scopolamine patch that had been placed on 03/21/19, had not been replaced, and we will replace that this morning, and hopefully that will be helpful. We will keep her today. We will bump her TPN up during the day today. We will also give her some and back down to 40 mL an hour on TPN at 2:00 a.m. in anticipation of probable discharge tomorrow. Will try to arrange Medical Oncology consultation tomorrow as well. We will switch over the Reglan and Zofran to oral versions today as well, in anticipation of probably getting home. Joseph Salazar MD /[id number]
[2019-03-26] MEDS: 1: AA 5%/Calcium/D15W/Lytes 1,000 ML with MVI, Adult with Vitamin K 10 ML, Chromium/Copp IV SCH ×3 (00:04)
[2019-03-26] MEDS ORDERED: 1: AA 5%/Calcium/D15W/Lytes 1,000 ML with MVI, Adult with Vitamin K 10 ML, Chromium/Copp IV SCH ×3 (02:00)
[2019-03-26] MEDS ORDERED: [UNRECOGNIZED DRUG - REMARK] IV ONE (02:00)
[2019-03-26] MEDS: Metoclopramide 10 MG Tab PO SCH ×2 (03:31→09:25)
[2019-03-26] MEDS: Acetaminophen 325 MG Tab PO SCH ×2 (03:31→09:25)
[2019-03-26] MEDS ORDERED: Central Total Parenteral Nutrition Bag SCH (07:45)
[2019-03-26] MEDS: Albuterol/Ipratropium 3.0-0.5 MG/3 ML Neb Soln INH SCH (07:47)
[2019-03-26 07:58] VITALS: BP 111/59
[2019-03-26] MEDS: Levothyroxine 50 MCG Tab PO SCH (08:23)
[2019-03-26] MEDS: Pindolol 10 MG Tab PO SCH (08:23)
[2019-03-26] MEDS: Pantoprazole 40 MG Tab.CR PO SCH (08:24)
[2019-03-26] MEDS: MEGESTROL PO SCH (08:24)
[2019-03-26] MEDS: Docusate Sodium 100 MG Cap PO SCH (08:24)
[2019-03-26] MEDS: Bisacodyl 5 MG Tab PO SCH (08:26)
--- NOTE | 2019-03-26 11:33 | DISCH ---
ADMISSION DIAGNOSES: 1. Severe abdominal pain. 2. Malignant gastrointestinal stromal tumor. 3. Osteoarthritis. 4. Allergic rhinitis. 5. Asthma. 6. Mitral regurgitation. 7. History of percutaneous transcatheter closure of congenital atrial septal defect. 8. Hypothyroidism. 9. Benign paroxysmal positional vertigo. 10.Vitamin D deficiency. 11.Vitamin B12 deficiency. 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 DISCHARGE DIAGNOSES: 1. Exploratory laparotomy with lysis of extensive adhesions. 2. Resection of mass, 18 cm, involving hilum of the spleen with drainage of hematoma and en bloc. a. Resection of spleen and small portion of distal pancreas. b. Resection of a portion of left diaphragm. c. Partial left hepatic lobectomy. d. Resection of mass involving omentum in the left upper abdomen. e. Resection of mass adjacent to the sternum and underlying anterior abdominal wall. f. Resection of mass involving gastric lesser omentum. g. Closure of resected diaphragm with mesh augmentation. h. Left tube thoracostomy. i. Placement of Interceed mesh to limit recurrent adhesion formation between the pelvic and abdominal wall and underlying viscera for spontaneous splenic rupture with increasing perisplenic hematoma. 3. Recurrent of gastrointestinal stromal tumor in multiple intraperitoneal location of the left upper abdomen as well as single liver metastasis. 4. Extensive intraabdominal adhesions. 5. Insertion of double-lumen triple catheter via left subclavian vein approach on 03/22/2019. Date of surgery: 03/15/2019. Surgeon: Joseph Salazar MD. HISTORY: Gayatri Styles is a 73-year-old female status post esophagogastrectomy for resection of proximal gastrointestinal stromal tumor. About 3 to 4 weeks ago, she went on an airplane trip and was quite active doing stretching motions on her own and during the trip, she developed some pain in her left upper abdomen. After preoperative evaluation and discussion of possible risks and possible complications, she wished to proceed with surgical procedure. HOSPITAL COURSE: Gayatri had her surgical procedure on 03/15/2019. She had no operative complications. On postoperative day #1, she had a temperature max of 101. Otherwise, she was clinically stable. She started on a liquid diet. On 03/17/2019, she remained afebrile. Blood pressure was a little bit elevated, so she was given some IV Lasix. Chest x-ray looked good. Due to nausea, she was switched from Dilaudid to fentanyl. The chest tube did put out 300 mL of clear output. On 03/18/2019, she remained afebrile. Oral intake was very scant. Chest tube put out 300. Albumin was 1.9, so she was given albumin 50 g IV for 3 days. On 03/19/2019, her oral intake picked up to 640. She was doing Ensure Clear. She was up and ambulating. Chest tube put out 130. On 03/20/2019, she developed an increased amount of nausea. Vital signs remained stable. She continued to have an increase in nausea despite Reglan, Zofran, and scopolamine. She had an Internal Medicine consult and on 03/22/2019, she continued to be nauseated. Olvera catheter was placed and she was started on TPN. On 03/23, nausea subsided. She looked much better. Oral intake increased and TPN continued. On 03/24, she continued with TPN and had large bowel movement. RN TELEPHONIC was discontinued. The TPN rate was decreased. On 03/25, she continued to improve and was able to be discharged on 03/26/2019. PHYSICAL EXAMINATION: GENERAL: Gayatri Styles is a pleasant 73-year-old female. VITAL SIGNS: Height is 5 feet 4 inches, weight is 129 pounds, BMI is 22. TPR is 97.8, 85, 16, blood pressure 111/59. HEENT: Negative. NECK: Supple. HEART: Regular rate and rhythm. LUNGS: Clear. ABDOMEN: Kevin are removed. Incision healing well. EXTREMITIES: Without peripheral edema. DISPOSITION: Discharged to home. CONDITION: Stable and improving. FOLLOWUP: 1. Follow up with Dr. Jodi Menard, Oncology today at 11 a.m. 2. Follow up with Tenisha Horton PA-C on 04/02/2019 at 11 a.m. Have Olvera catheter flush once a week and needs to have her post spleen immunizations at that appointment. HOME MEDICATIONS: 1. Reglan 10 mg every 6 hours scheduled for 1 week, #28. 2. Tylenol 650 mg oral q.6 hours p.r.n. pain. 3. Colace 100 mg oral twice daily. 4. Scopolamine patch 1.5 transdermal every 72 hours, #6. She is to resume her home medications of Ventolin inhaler 2 puffs 4 times a day, ascorbic acid 500 mg oral twice daily, calcium/vitamin D 600 mg with vitamin D 1 tablet twice daily, vitamin D3 of 1000 international units daily, vitamin B12 of 1000 mcg sublingual daily, fish oil 1 g oral daily, levothyroxine 50 mcg oral daily, Megace 1 dose oral daily, omeprazole 40 mg oral daily, papaya enzyme p.r.n., pindolol 5 mg oral daily, triamcinolone cream applied to affected area twice daily, and ranitidine 150 mg oral. DIET: Regular diet as tolerated. Drink 8 to 10 glasses of water a day. ACTIVITY: No lifting greater than 10 pounds for 6 weeks. Walk at least 6 times daily inside your home. Driving: Do not drive for 1 week. May shower. DISCHARGE INSTRUCTIONS: Notify provider if any fever, increased pain, swelling, redness, drainage, nausea, or vomiting. Keep site clean and dry. Wear abdominal binder for 2 weeks and as tolerated. SPECIAL INSTRUCTIONS: Use incentive spirometer 10 times every hour while awake. Have Olvera catheter flushed once weekly.
== END 2019-03-26 11:00 | disposition home health service (06) | DRG 800 ==
LOC: JP.SDS 06:05 → JP.SDSSCHI 06:05 → EDSTATUS 07:30 → JP.ICU 13:16 → JP.MS 03-19 13:38
PROVIDERS: ADMIT Surgery; ATTEND Surgery
PROC: 07TP0ZZ Resection of Spleen, Open Approach (ICD-10-PCS; principal; 2019-03-15)
PROC: 0DNU0ZZ Release Omentum, Open Approach (ICD-10-PCS; 2019-03-15)
PROC: 07BP0ZZ Excision of Spleen, Open Approach (ICD-10-PCS; 2019-03-15)
PROC: 0DNW0ZZ Release Peritoneum, Open Approach (ICD-10-PCS; 2019-03-15)
PROC: 0WBF0ZZ Excision of Abdominal Wall, Open Approach (ICD-10-PCS; 2019-03-15)
PROC: 0FBG0ZZ Excision of Pancreas, Open Approach (ICD-10-PCS; 2019-03-15)
PROC: 0BBT0ZZ Excision of Diaphragm, Open Approach (ICD-10-PCS; 2019-03-15)
PROC: 0FB20ZZ Excision of Left Lobe Liver, Open Approach (ICD-10-PCS; 2019-03-15)
PROC: 0DBU0ZZ Excision of Omentum, Open Approach (ICD-10-PCS; 2019-03-15)
PROC: 0BQT0ZZ Repair Diaphragm, Open Approach (ICD-10-PCS; 2019-03-15)
PROC: 3E0M05Z Introduction of Adhesion Barrier into Peritoneal Cavity, Open Approach (ICD-10-PCS; 2019-03-15)
PROC: 0W9B00Z Drainage of Left Pleural Cavity with Drainage Device, Open Approach (ICD-10-PCS; 2019-03-15)
PROC: 30233N1 Transfusion of Nonautologous Red Blood Cells into Peripheral Vein, Percutaneous Approach (ICD-10-PCS; 2019-03-15)
PROC: 02HV33Z Insertion of Infusion Device into Superior Vena Cava, Percutaneous Approach (ICD-10-PCS; 2019-03-22)
PROC: 3E0436Z Introduction of Nutritional Substance into Central Vein, Percutaneous Approach (ICD-10-PCS; 2019-03-22)
PROC: 0DBU0ZX Excision of Omentum, Open Approach, Diagnostic (ICD-10-PCS; 2019-03-25)
PROC: 079 Lymphatic and Hemic Systems, Drainage (ICD-10-PCS; 2019-03-25)
PROC: 0DBU0ZZ Excision of Omentum, Open Approach (ICD-10-PCS; 2019-03-25)
DX: D73.5 Infarction of spleen (principal); C49.A2 Gastrointestinal stromal tumor of stomach; C78.7 Secondary malignant neoplasm of liver and intrahepatic bile duct; K56.7 Ileus, unspecified; K66.0 Peritoneal adhesions (postprocedural) (postinfection); Z68.20 Body mass index [BMI] 20.0-20.9, adult; Z98.84 Bariatric surgery status; E03.9 Hypothyroidism, unspecified; Z98.0 Intestinal bypass and anastomosis status; Z90.3 Acquired absence of stomach [part of]; E53.8 Deficiency of other specified B group vitamins; E53.9 Vitamin B deficiency, unspecified; E55.9 Vitamin D deficiency, unspecified; E83.39 Other disorders of phosphorus metabolism; E83.42 Hypomagnesemia; H81.10 Benign paroxysmal vertigo, unspecified ear; Z88.1 Allergy status to other antibiotic agents; Z91.011 Allergy to milk products; Z90.710 Acquired absence of both cervix and uterus; Z90.79 Acquired absence of other genital organ(s); Z90.722 Acquired absence of ovaries, bilateral; Z88.2 Allergy status to sulfonamides; Z88.8 Allergy status to other drugs, medicaments and biological substances; Z87.440 Personal history of urinary (tract) infections; R11.2 Nausea with vomiting, unspecified; M19.90 Unspecified osteoarthritis, unspecified site; J45.909 Unspecified asthma, uncomplicated; I34.0 Nonrheumatic mitral (valve) insufficiency; Z87.74 Personal history of (corrected) congenital malformations of heart and circulatory system
CPT/HCPCS: 36415; 36430; 71045; 71046; 74018; 74019; 80053; 82150; 82607; 82728; 82746; 83735; 83880; 84100; 84443; 85027; 85610; 85730; 86850; 86900; 86901; 86920; 86922; 88307; 88309; 88342; 88381; 94640; 94762; A9270-GY; C1713; C1781; C9113; J0171; J0330; J0694; J1100; J1170; J1642; J1940; J2020; J2060; J2185; J2250; J2405; J2704; J2710; J2765; J2795; J3010; J3410; J3475; J3490; J7042; J7050; J7120; J7620-GY; P9016; P9047

== ENCOUNTER 2019-04-09 14:51 | Inpatient (IN) | payer MEDICARE, BC ==
[2019-04-09] MEDS ORDERED: Piperacillin/Tazobactam 4.5 GM in Sodium Chloride 0.9% 100 ML IV STA (15:24)
[2019-04-09] MEDS ORDERED: Lactated Ringers 1,000 ML IV SCH ×2 (15:30→17:00)
[2019-04-09] MEDS ORDERED: Piperacillin/Tazobactam/Dext 4.5 GM in Premix Bag 1 BAG IV STA (15:34)
--- NOTE | 2019-04-09 15:40 | EDM.PDOC ---
ED HPI GENERAL MEDICAL PROBLEM - General Chief Complaint: General Stated Complaint: FLU LIKE SYMPTOMS Time Seen by Provider: 04/09/19 15:19 Source of Information: Reports: Patient, Family, Old Records, RN Notes Reviewed History Limitations: Reports: No Limitations - History of Present Illness INITIAL COMMENTS - FREE TEXT/NARRATIVE: 73-year-old female presents emergency department today complaint of fever and chills, she states this started about an hour after her Olvera port was flushed , she had a similar episode a week ago but the symptoms resolved within 1 hour. - Related Data Allergies Allergy/AdvReac Type Severity Reaction Status Date / Time clopidogrel Allergy Unknown Rash Verified 04/09/19 15:15 erythromycin base Allergy Unknown Rash Verified 04/09/19 15:15 [Erythromycin Base] Sulfa (Sulfonamide AdvReac Unknown Rash Verified 04/09/19 15:15 Antibiotics) ciprofloxacin AdvReac Muscle Verified 04/09/19 15:15 Aches hydromorphone [From Dilaudid] AdvReac Nausea Verified 04/09/19 15:15 hyoscyamine AdvReac Dizziness Verified 04/09/19 15:15 levofloxacin [From Levaquin] AdvReac Muscle Verified 04/09/19 15:15 Aches Home Meds: Home Meds Albuterol [Ventolin HFA] 2 puff INH QID PRN 03/15/19 [History] Ascorbic Acid 500 mg PO BID 03/15/19 [History] Calcium Carbonate/Vitamin D3 [Calcium 600 + Vit D 200] 1 tab PO BID 03/15/19 [ History] Cholecalciferol (Vitamin D3) [Vitamin D3] 1,000 unit PO DAILY 03/15/19 [History] Cyanocobalamin (Vitamin B-12) [Vitamin B-12] 1,000 mcg PO DAILY 03/15/19 [ History] Fish Oil/[place]-3 Fatty Acids [Fish Oil 1,000 MG] 1 gm PO DAILY 03/15/19 [History ] Levothyroxine [Synthroid] 50 mcg PO DAILY 03/15/19 [History] Megestrol Acetate [Megace Es] 1 dose PO DAILY 03/15/19 [History] Multivitamin [Multi-Vitamin Daily] 1 tab PO DAILY 03/15/19 [History] Omeprazole 40 mg PO DAILY 03/15/19 [History] Papaya [Papaya Enzyme] 1 tab PO TID 03/15/19 [History] Pindolol 5 mg PO DAILY 03/15/19 [History] Triamcinolone Acetonide [Triamcinolone Acetonide 0.1% Crm] 1 applic TOP BID PRN 03/15/19 [History] oxyCODONE 5 - 10 mg PO Q4H PRN 03/15/19 [History] raNITIdine HCl [Zantac] 150 mg PO BEDTIME 03/15/19 [History] Acetaminophen [Tylenol] 650 mg PO Q6H tablet 03/26/19 [Rx] Docusate Sodium [Colace] 100 mg PO BID cap 03/26/19 [Rx] Metoclopramide HCl [Reglan] 10 mg PO Q6HR #28 tablet 03/26/19 [Rx] Metoclopramide [Reglan] 10 mg PO WITHMEALSANDBED #28 ml 03/26/19 [Rx] Scopolamine [Transderm-Scop] 1.5 mg TRDERM Q72H PRN #6 patch 03/26/19 [Rx] Past Medical History HEENT History: Reports: Allergic Rhinitis, Impaired Vision Cardiovascular History: Reports: Other (See Below) Other Cardiovascular History: ASD closure, MITRAL VALVE THICKENING Gastrointestinal History: Reports: GERD, Hemorrhoids Genitourinary History: Reports: UTI, Recurrent Other Genitourinary History: pt ? 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: Reports: Dysfunctional Uterine Bleeding, Other ASSISTANT CASINO SHIFT MANAGER History: hx of hystectomy Musculoskeletal History: Reports: Back Pain, Chronic, Osteoarthritis Neurological History: Reports: Vertigo Psychiatric History: Reports: Depression Endocrine/Metabolic History: Reports: Hypothyroidism Hematologic History: Reports: Anemia, B12 Deficiency, Blood Transfusion(s), Iron Deficiency, Transfusion Reaction Oncologic (Cancer) History: Reports: Other (See Below) Other Oncologic History: ABDOMEN MASS Dermatologic History: Reports: Other (See Below) Other Dermatologic History: skin rashes - Infectious Disease History Infectious Disease History: Reports: Chicken Pox, Measles, Mumps - Past Surgical History HEENT Surgical History: Reports: Detached Retina Cardiovascular Surgical History: Reports: Other (See Below) Other Cardiovascular Surgeries/Procedures: ASD closure- 2012 GI Surgical History: Reports: Appendectomy, Colonoscopy, EGD, Other (See Below) Other GI Surgeries/Procedures: mass in stomach Female Surgical History: Reports: Hysterectomy, Salpingo-Oophorectomy Endocrine Surgical History: Reports: None Neurological Surgical History: Reports: None Musculoskeletal Surgical History: Reports: None Oncologic Surgical History: Reports: Other (See Below) Other Oncologic Surgeries/Procedures: MASS REMOVAL Dermatological Surgical History: Reports: None Social & Family History - Family History Family Medical History: Noncontributory - Tobacco Use Smoking Status *Q: Never Smoker - Caffeine Use Caffeine Use: Reports: None - Recreational Drug Use Recreational Drug Use: No ED ROS GENERAL - Review of Systems Review Of Systems: See Below Constitutional: Reports: Fever, Chills HEENT: Reports: No Symptoms Respiratory: Reports: No Symptoms Cardiovascular: Reports: No Symptoms GI/Abdominal: Reports: No Symptoms ED EXAM, GENERAL - Physical Exam Exam: See Below Exam Limited By: No Limitations General Appearance: Alert, Mild Distress Throat/Mouth: Normal Inspection, Normal Lips, Normal Teeth, Normal Gums, Normal Oropharynx, Normal Voice, No Airway Compromise Head: Atraumatic, Normocephalic Neck: Normal Inspection, Supple, Non-Tender, Full Range of Motion Respiratory/Chest: No Respiratory Distress, Lungs Clear, Normal Breath Sounds, No Accessory Muscle Use, Chest Non-Tender Cardiovascular: Regular Rate, Rhythm, No Murmur GI/Abdominal: Soft, Non-Tender Course - Vital Signs Last Recorded V/S: Last Vital Signs Temp 100.8 F H 04/09/19 15:59 Pulse 109 H 04/09/19 15:16 Resp 22 H 04/09/19 15:16 BP 114/42 L 04/09/19 15:16 Pulse Ox 99 04/09/19 15:16 - Orders/Labs/Meds Orders: Active Orders 24 hr Category Date Time Status Vital Signs [RC] Q1H Care 04/09/19 15:25 Active CULTURE BLOOD [BC] Urgent Lab 04/09/19 15:40 Received CULTURE BLOOD [BC] Urgent Lab 04/09/19 15:46 Received UA W/MICROSCOPIC [URIN] Urgent Lab 04/09/19 15:24 Ordered Lactated Ringers [Ringers, Lactated] 1,000 ml Med 04/09/19 15:30 Active IV ASDIRECTED Vancomycin 1 gm Med 04/09/19 16:34 Ordered Sodium Chloride 0.9% [Normal Saline] 250 ml IV ONETIME Blood Culture x2 Reflex Set [OM.PC] Urgent Oth 04/09/19 15:25 Ordered Medication Orders Lactated Ringer's (Ringers, Lactated) 1,000 mls @ 999 mls/hr IV ASDIRECTED SUELLEN Last Admin: 04/09/19 15:47 Dose: 999 mls/hr Vancomycin HCl 1 gm/ Sodium (Chloride) 250 mls @ 150 mls/hr IV ONETIME ONE Stop: 04/09/19 18:13 Labs: Laboratory Tests 04/09/19 04/09/19 04/09/19 Range/Units 15:40 15:40 15:40 WBC 2.0 L (4.5-11.0) K/uL RBC 3.88 (3.30-5.50) M/uL Hgb 11.2 L (12.0-15.0) g/dL Hct 34.6 L (36.0-48.0) % MCV 89 (80-98) fL MCH 29 (27-31) pg MCHC 32 (32-36) % Plt Count 299 (150-400) K/uL Neut % (Auto) 65 (36-66) % Lymph % (Auto) 33 (24-44) % [place] % (Auto) 1 L (2-6) % Eos % (Auto) 1 L (2-4) % Baso % (Auto) 2 H (0-1) % Sodium 140 (140-148) mmol/L Potassium 3.9 (3.6-5.2) mmol/L Chloride 106 (100-108) mmol/L Carbon Dioxide 20 L (21-32) mmol/L Anion Gap 17.9 H (5.0-14.0) mmol/L BUN 24 H (7-18) mg/dL Creatinine 1.1 H D (0.6-1.0) mg/dL Est Cr Clr Drug Dosing 38.63 mL/min Estimated GFR (MDRD) 49 L (>60) Glucose 92 (74-106) mg/dL Lactic Acid 4.3 H (0.4-2.0) mmol/L Calcium 9.0 (8.5-10.1) mg/dL Total Bilirubin 0.4 (0.2-1.0) mg/dL AST 73 H (15-37) U/L ALT 48 (12-78) U/L Alkaline Phosphatase 130 H (46-116) U/L C-Reactive Protein 1.10 H (0.0-0.3) mg/dL Total Protein 6.4 (6.4-8.2) g/dL Albumin 3.1 L (3.4-5.0) g/dL Globulin 3.3 (2.3-3.5) g/dL Albumin/Globulin Ratio 0.9 L (1.2-2.2) Meds: Medications Generic Name Dose Route Start Last Admin Trade Name Freq PRN Reason Stop Dose Admin Lactated Ringer's 1,000 mls @ 999 mls/hr 04/09/19 15:30 04/09/19 15:47 Ringers, Lactated IV 999 mls/hr ASDIRECTED SUELLEN Administration Vancomycin HCl 1 gm/ Sodium 250 mls @ 150 mls/hr 04/09/19 16:34 Chloride IV 04/09/19 18:13 ONETIME ONE Discontinued Medications Generic Name Dose Route Start Last Admin Trade Name Freq PRN Reason Stop Dose Admin Acetaminophen 650 mg 04/09/19 15:54 04/09/19 15:59 Tylenol PO 04/09/19 15:55 650 mg NOW ONE Administration Piperacillin/Tazobactam/ 100 mls @ 200 mls/hr 04/09/19 15:34 04/09/19 15:46 Dextrose 4.5 gm/ Premix IV 04/09/19 15:53 200 mls/hr NOW STA Administration Departure - Departure Time of Disposition: 16:40 Disposition: Admitted As Inpatient 68 Condition: Fair Clinical Impression: Sepsis Qualifiers: Sepsis type: sepsis due to unspecified organism Qualified Code(s): A41.9 - Sepsis, unspecified organism - Discharge Information Referrals: Mery Gracia MD [Primary Care Provider] - Forms: ED Department Discharge - My Orders Last 24 Hours: My Active Orders 04/09/19 15:24 UA W/MICROSCOPIC [URIN] Urgent 04/09/19 15:25 Vital Signs [RC] Q1H Blood Culture x2 Reflex Set [OM.PC] Urgent 04/09/19 15:30 Lactated Ringers [Ringers, Lactated] 1,000 ml IV ASDIRECTED 04/09/19 15:40 CULTURE BLOOD [BC] Urgent 04/09/19 15:46 CULTURE BLOOD [BC] Urgent 04/09/19 16:34 Vancomycin 1 gm Sodium Chloride 0.9% [Normal Saline] 250 ml IV ONETIME - Assessment/Plan Last 24 Hours: My Active Orders 04/09/19 15:24 UA W/MICROSCOPIC [URIN] Urgent 04/09/19 15:25 Vital Signs [RC] Q1H Blood Culture x2 Reflex Set [OM.PC] Urgent 04/09/19 15:30 Lactated Ringers [Ringers, Lactated] 1,000 ml IV ASDIRECTED 04/09/19 15:40 CULTURE BLOOD [BC] Urgent 04/09/19 15:46 CULTURE BLOOD [BC] Urgent 04/09/19 16:34 Vancomycin 1 gm Sodium Chloride 0.9% [Normal Saline] 250 ml IV ONETIME Plan: Assessment Acuity = acute Site and laterality = sepsis Etiology = suspicious for catheter associated Manifestations = fever, chills Location of injury = Home Lab values = WBC low at 2.0 consistent leukopenia CRP elevated 1.1 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
[2019-04-09] MEDS ORDERED: Acetaminophen 325 MG Tab PO ONE (15:54)
--- NOTE | 2019-04-09 16:28 | CRLCR ---
INDICATION: Fever TECHNIQUE: Chest 1 views COMPARISON: Chest x-ray 03/25/2019 FINDINGS: Cardiovascular and mediastinum: Normal heart size with left internal jugular line extending to the distal superior vena cava. Lungs and pleural spaces: Trace left pleural thickening versus effusion. No focal consolidation. Bones and soft tissues: Mesh overlies left upper quadrant. IMPRESSION: Compared to the prior examination, interval resolution of the previously noted left basilar airspace disease with residual trace left pleural effusion or pleural thickening. Dictated by Charly Rondon MD @ Apr 09 2019 4:26PM Signed by Dr. Charly Rondon @ Apr 09 2019 4:27PM
--- NOTE | 2019-04-09 17:08 | PCM.HP ---
H&P History of Present Illness - General Date of Service: 04/09/19 Admit Problem/Dx: Admission Diagnosis/Problem Admission Diagnosis/Problem Catheter-related bloodstream infection Source of Information: Patient, Family, Provider History Limitations: Reports: No Limitations - History of Present Illness Initial Comments - Free Text/Narative: CC: I keep shaking HPI: Makenna presents to the emergency room today with shaking chills, back and pelvis pain and nausea. She reports a similar mild episode about one week ago after her Olvera catheter was flushed. Symptoms resolved after one hour. She has felt fine other than a poor appetite until today when she had her Olvera flushed again. Shortly after the catheter was flushed developed nausea as well as shaking chills and pain throughout her spine and into her pelvis. She describes moderate achy pain throughout her spine as well as the posterior part of her pelvis. The pain does not radiate. She has had Tylenol but this has not provided much benefit. Moving around makes the pain more intense. She had similar but less intense pain one week ago after her Olvera flush. Appetite has been poor since her surgery but this has been stable. No complaints of shortness of breath, cough or diarrhea. She has not had any urinary symptoms such as frequency or dysuria. No skin rashes. She does have a mild posterior headache. Workup in the emergency room is concerning for sepsis with fever, tachycardia, tachypnea and lactic acidosis. Suspected site of infection is her Olvera catheter. She has received 1 L of IV fluids and will be receiving a second. Cultures have been obtained and she is receiving broad-spectrum antibiotics. She 'll be admitted for further management. - Related Data Allergies/Adverse Reactions: Allergies Allergy/AdvReac Type Severity Reaction Status Date / Time clopidogrel Allergy Unknown Rash Verified 04/09/19 15:15 erythromycin base Allergy Unknown Rash Verified 04/09/19 15:15 [Erythromycin Base] Sulfa (Sulfonamide AdvReac Unknown Rash Verified 04/09/19 15:15 Antibiotics) ciprofloxacin AdvReac Muscle Verified 04/09/19 15:15 Aches hydromorphone [From Dilaudid] AdvReac Nausea Verified 04/09/19 15:15 hyoscyamine AdvReac Dizziness Verified 04/09/19 15:15 levofloxacin [From Levaquin] AdvReac Muscle Verified 04/09/19 15:15 Aches Home Medications: Home Meds Albuterol [Ventolin HFA] 2 puff INH QID PRN 03/15/19 [History] Ascorbic Acid 500 mg PO BID 03/15/19 [History] Calcium Carbonate/Vitamin D3 [Calcium 600 + Vit D 200] 1 tab PO BID 03/15/19 [ History] Cholecalciferol (Vitamin D3) [Vitamin D3] 1,000 unit PO DAILY 03/15/19 [History] Cyanocobalamin (Vitamin B-12) [Vitamin B-12] 1,000 mcg PO DAILY 03/15/19 [ History] Fish Oil/Waves-3 Fatty Acids [Fish Oil 1,000 MG] 1 gm PO DAILY 03/15/19 [History ] Levothyroxine [Synthroid] 50 mcg PO DAILY 03/15/19 [History] Megestrol Acetate [Megace Es] 1 dose PO DAILY 03/15/19 [History] Multivitamin [Multi-Vitamin Daily] 1 tab PO DAILY 03/15/19 [History] Omeprazole 40 mg PO DAILY 03/15/19 [History] Papaya [Papaya Enzyme] 1 tab PO TID 03/15/19 [History] Pindolol 5 mg PO DAILY 03/15/19 [History] Triamcinolone Acetonide [Triamcinolone Acetonide 0.1% Crm] 1 applic TOP BID PRN 03/15/19 [History] oxyCODONE 5 - 10 mg PO Q4H PRN 03/15/19 [History] raNITIdine HCl [Zantac] 150 mg PO BEDTIME 03/15/19 [History] Acetaminophen [Tylenol] 650 mg PO Q6H tablet 03/26/19 [Rx] Docusate Sodium [Colace] 100 mg PO BID cap 03/26/19 [Rx] Metoclopramide HCl [Reglan] 10 mg PO Q6HR #28 tablet 03/26/19 [Rx] Metoclopramide [Reglan] 10 mg PO WITHMEALSANDBED #28 ml 03/26/19 [Rx] Scopolamine [Transderm-Scop] 1.5 mg TRDERM Q72H PRN #6 patch 03/26/19 [Rx] Past Medical History HEENT History: Reports: Allergic Rhinitis, Impaired Vision Cardiovascular History: Reports: Other (See Below) Other Cardiovascular History: ASD closure, MITRAL VALVE THICKENING Gastrointestinal History: Reports: GERD, Hemorrhoids Genitourinary History: Reports: UTI, Recurrent Other Genitourinary History: pt ? having UTI [employer]LECT[employer]IC [employer]DERER History: Reports: Dysfunctional Uterine Bleeding, Other OB/BYN History: hx of hystectomy Musculoskeletal History: Reports: Back Pain, Chronic, Osteoarthritis Neurological History: Reports: Vertigo Psychiatric History: Reports: Depression Endocrine/Metabolic History: Reports: Hypothyroidism Hematologic History: Reports: Anemia, B12 Deficiency, Blood Transfusion(s), Iron Deficiency, Transfusion Reaction Oncologic (Cancer) History: Reports: Other (See Below) Other Oncologic History: ABDOMEN MASS Dermatologic History: Reports: Other (See Below) Other Dermatologic History: skin rashes - Infectious Disease History Infectious Disease History: Reports: Chicken Pox, Measles, Mumps - Past Surgical History HEENT Surgical History: Reports: Detached Retina Cardiovascular Surgical History: Reports: Other (See Below) Other Cardiovascular Surgeries/Procedures: ASD closure- 2012 GI Surgical History: Reports: Appendectomy, Colonoscopy, EGD, Other (See Below) Other GI Surgeries/Procedures: mass in stomach Female Surgical History: Reports: Hysterectomy, Salpingo-Oophorectomy Endocrine Surgical History: Reports: None Neurological Surgical History: Reports: None Musculoskeletal Surgical History: Reports: None Oncologic Surgical History: Reports: Other (See Below) Other Oncologic Surgeries/Procedures: MASS REMOVAL Dermatological Surgical History: Reports: None Social & Family History - Family History Family Medical History: Noncontributory - Tobacco Use Smoking Status *Q: Never Smoker - Caffeine Use Caffeine Use: Reports: None - Alcohol Use Alcohol Use History: No - Recreational Drug Use Recreational Drug Use: No H&P Review of Systems - Review of Systems: Review Of Systems: See Below Free Text/Narrative: A complete 12 point review of systems was obtained. Pertinent positives and negatives are noted in the history of present illness. All other systems were reviewed and were negative except as noted. Exam - Exam Exam: See Below - Vital Signs Vital Signs: Last Vital Signs Temp 37.9 C 04/09/19 16:29 Pulse 109 H 04/09/19 15:16 Resp 22 H 04/09/19 15:16 BP 114/42 L 04/09/19 15:16 Pulse Ox 99 04/09/19 15:16 Weight: 52.163 kg - Exam Quality Assessment: No: Supplemental Oxygen General: Alert, Oriented, Cooperative, Mild Distress HEENT: Conjunctiva Clear. No: Mucosa Moist & [place] (dry), Scleral Icterus Neck: Supple, Trachea Midline. No: Lymphadenopathy Lungs: Clear to Auscultation, Normal Respiratory Effort Cardiovascular: Regular Rhythm, Tachycardia. No: Systolic Murmur GI/Abdominal Exam: Normal Bowel Sounds, Soft, Non-Tender, No Distention Extremities: No Pedal Edema. No: Increased Warmth Peripheral Pulses: 2+: Dorsalis Pedis (L), Dorsalis Pedis (R) Skin: Warm, Dry, Other (Olvera insertion left mid chest with no erythema or drainage. Dressing intact ) Neuro Extensive - Mental Status: Alert, Oriented x3, Nl Response to Commands Neuro Extensive - Motor, Sensory, Reflexes: No: Dysarthria, Abnormal Motor, Tremor Psychiatric: Alert, Normal Affect - Patient Data Lab Results Last 24 hrs: Laboratory Results - last 24 hr 04/09/19 04/09/19 04/09/19 Range/Units 15:40 15:40 15:40 WBC 2.0 L (4.5-11.0) K/uL RBC 3.88 (3.30-5.50) M/uL Hgb 11.2 L (12.0-15.0) g/dL Hct 34.6 L (36.0-48.0) % MCV 89 (80-98) fL MCH 29 (27-31) pg MCHC 32 (32-36) % Plt Count 299 (150-400) K/uL Neut % (Auto) 65 (36-66) % Lymph % (Auto) 33 (24-44) % [place] % (Auto) 1 L (2-6) % Eos % (Auto) 1 L (2-4) % Baso % (Auto) 2 H (0-1) % Sodium 140 (140-148) mmol/L Potassium 3.9 (3.6-5.2) mmol/L Chloride 106 (100-108) mmol/L Carbon Dioxide 20 L (21-32) mmol/L Anion Gap 17.9 H (5.0-14.0) mmol/L BUN 24 H (7-18) mg/dL Creatinine 1.1 H D (0.6-1.0) mg/dL Est Cr Clr Drug Dosing 38.63 mL/min Estimated GFR (MDRD) 49 L (>60) Glucose 92 (74-106) mg/dL Lactic Acid 4.3 H (0.4-2.0) mmol/L Calcium 9.0 (8.5-10.1) mg/dL Total Bilirubin 0.4 (0.2-1.0) mg/dL AST 73 H (15-37) U/L ALT 48 (12-78) U/L Alkaline Phosphatase 130 H (46-116) U/L C-Reactive Protein 1.10 H (0.0-0.3) mg/dL Total Protein 6.4 (6.4-8.2) g/dL Albumin 3.1 L (3.4-5.0) g/dL Globulin 3.3 (2.3-3.5) g/dL Albumin/Globulin Ratio 0.9 L (1.2-2.2) Result Diagrams: 04/09/19 15:40 04/09/19 15:40 Imaging Impressions Last 24 hrs: CXR - images personally reviewed - lungs are clear with no mass, infiltrate or effusion. central catheter in place *Q Meaningful Use (ADM) - VTE Risk Assess *Q Each Risk Factor Represents 1 Point: Sepsis Total Score 1 Point Risk Factors: 1 Each Risk Factor Represents 2 Points: Age 60 - 74 Years, Central venous access, Malignancy (present or previous) Total Score 2 Point Risk Factors: 6 Each Risk Factor Represents 3 Points: None Total Score 3 Point Risk Factors: 0 Each Risk Factor Represents 5 Points: None Total Score 5 Point Risk Factors: 0 Venous Thromboembolism Risk Factor Score *Q: 7 - Problem List (1) Catheter-related bloodstream infection SNOMED Code(s): 205219532 ICD Code: T80.211A - BLOODSTREAM INFECTION DUE TO CENTRAL VENOUS CATHETER, INIT Status: Suspected Current Visit: Yes Qualifiers: Encounter type: initial encounter Qualified Code(s): T80.211A - Bloodstream infection due to central venous catheter, initial encounter (2) Sepsis SNOMED Code(s): 57036437 ICD Code: A41.9 - SEPSIS, UNSPECIFIED ORGANISM Status: Acute Current Visit: Yes Qualifiers: Sepsis type: sepsis due to unspecified organism Qualified Code(s): A41.9 - Sepsis, unspecified organism (3) 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 SNOMED Code(s): 247619388, 463579009 ICD Code: C49.A2 - GASTROINTESTINAL STROMAL TUMOR OF STOMACH Status: Acute Current Visit: No Problem List Initiated/Reviewed/Updated: Yes Orders Last 24hrs: Active Orders 24 hr Category Date Time Status Patient Status Manage Transfer [TRANSFER] Routine ADT 04/09/19 16:57 Ordered Vital Signs [RC] Q1H Care 04/09/19 15:25 Active CULTURE BLOOD [BC] Urgent Lab 04/09/19 15:40 Received CULTURE BLOOD [BC] Urgent Lab 04/09/19 15:46 Received UA W/MICROSCOPIC [URIN] Urgent Lab 04/09/19 15:24 Ordered Lactated Ringers [Ringers, Lactated] 1,000 ml Med 04/09/19 15:30 Active IV ASDIRECTED Lactated Ringers [Ringers, Lactated] 1,000 ml Med 04/09/19 17:00 Active IV ASDIRECTED Vancomycin 1 gm Med 04/09/19 16:34 Active Sodium Chloride 0.9% [Normal Saline] 250 ml IV ONETIME Blood Culture x2 Reflex Set [OM.PC] Urgent Oth 04/09/19 15:25 Ordered Resuscitation Status Routine Resus Stat 04/09/19 17:00 Ordered Medication Orders Lactated Ringer's (Ringers, Lactated) 1,000 mls @ 999 mls/hr IV ASDIRECTED ON LICENSE OF [facility] Last Admin: 04/09/19 15:47 Dose: 999 mls/hr Vancomycin HCl 1 gm/ Sodium (Chloride) 250 mls @ 150 mls/hr IV ONETIME ONE Stop: 04/09/19 18:13 Last Admin: 04/09/19 16:50 Dose: 150 mls/hr Lactated Ringer's (Ringers, Lactated) 1,000 mls @ 999 mls/hr IV ASDIRECTED SUELLEN Stop: 04/09/19 18:01 Assessment/Plan Comment:: ASSESSMENT AND PLAN - Suspected catheter-related infection with sepsis - symptomatically after her Olvera catheter was flushed. She is febrile, tachycardic, tachypneic and has lactic acidosis. Cultures have been obtained and broad-spectrum antibiotic started. She is receiving fluids per the sepsis protocol. -Continue vancomycin and Pip/Tazo -Acetaminophen as needed for fever -Complete 30 mL/kg bolus -IV fluids overnight -repeat lactic acid this evening -Surgical consultation for probable Olvera removal GIST - Diagnosed recently. She is status post surgical resection. -Outpatient follow-up Maintenance issues - - DVT prophylaxis - mechanical - GI prophylaxis - PPI - Nutrition - Regular diet this evening and nothing by mouth after midnight - Yip catheter - Not indicated CODE STATUS - Full code Admission justification - This patient will be admitted for inpatient services and is medically appropriate meeting medical necessity for inpatient admission as outlined in my documentation. I reasonably expect the patient will require inpatient services that span a period time over 2 midnights. I reasonably expect this patient to be discharged or transferred within 96 hours after admission to the [facility]. Disposition - I would anticipate discharge home after the hospital stay Primary care physician - Khoi Clay M.D.
[2019-04-09] MEDS ORDERED: Ondansetron 4 MG Tab.DIS PO PRN (17:59)
[2019-04-09] MEDS ORDERED: Magnesium Hydroxide 400 MG/5 ML Susp 30 ML Cup PO PRN (17:59)
[2019-04-09] MEDS ORDERED: LORazepam 2 MG/ML SDV IVPUSH PRN (17:59)
[2019-04-09] MEDS ORDERED: Ondansetron 4 MG/2 ML SDV IV PRN (17:59)
[2019-04-09] MEDS ORDERED: oxyCODONE 5 MG Tab PO PRN (17:59)
[2019-04-09] MEDS: METOCLOPRAMIDE 5 MG/5 ML PO SCH ×2 (19:17→22:38)
[2019-04-09] MEDS: Sodium Chloride 0.9% 1,000 ML IV SCH (19:52)
[2019-04-09] MEDS ORDERED: Metoclopramide 10 MG Tab ONE (22:24)
[2019-04-09] MEDS: Piperacillin/Tazobactam 3.375 GM in Sodium Chloride 0.9% 50 ML IV SCH (22:38)
[2019-04-09] MEDS: Lactobacillus Rhamnosus GG (Probiotic) Cap PO SCH (22:38)
[2019-04-09] MEDS: Lactated Ringers 1,000 ML IV SCH (23:09)
[2019-04-10] MEDS: Lactated Ringers 1,000 ML IV SCH (00:59)
[2019-04-10] MEDS ORDERED: Lactated Ringers 1,000 ML IV SCH (01:00)
[2019-04-10] MEDS: Piperacillin/Tazobactam 3.375 GM in Sodium Chloride 0.9% 50 ML IV SCH (03:19)
[2019-04-10] MEDS: Sodium Chloride 0.9% 1,000 ML IV SCH ×2 (04:49→14:17)
[2019-04-10] MEDS ORDERED: METOCLOPRAMIDE 5 MG/5 ML PO SCH (08:00)
[2019-04-10] MEDS ORDERED: Lactated Ringers 1,000 ML IV ONE (08:34)
[2019-04-10] MEDS ORDERED: Hydrocortisone Sodium Succinate 100 MG/2 ML SDV IVPUSH ONE ×2 (09:00→18:00)
[2019-04-10] MEDS ORDERED: MVI, Adult with Vitamin K 10 ML, Chromium/Copper/Mang/Selen/Zn 1 ML, Thiamine 100 MG in... IV SCH ×4 (09:30)
[2019-04-10] MEDS: SCOPOLAMINE PATCH CHECK TOP SCH (09:44)
[2019-04-10] MEDS: Meropenem 500 MG in Sodium Chloride 0.9% 50 ML IV SCH ×2 (09:51→21:26)
[2019-04-10] MEDS: Levothyroxine 50 MCG Tab PO SCH (09:53)
[2019-04-10] MEDS: MEGESTROL ACETATE PO SCH (09:53)
[2019-04-10] MEDS: Lactobacillus Rhamnosus GG (Probiotic) Cap PO SCH ×2 (09:53→20:57)
[2019-04-10] MEDS: Metoclopramide 10 MG Tab PO SCH ×4 (09:53→20:57)
[2019-04-10] MEDS: Pantoprazole 40 MG Tab.CR PO SCH (09:53)
[2019-04-10] MEDS ORDERED: Piperacillin/Tazobactam/Dext 2.25 GM in Premix Bag 1 BAG IV SCH (10:00)
--- NOTE | 2019-04-10 10:07 | PCM.PN ---
- General Info Date of Service: 04/10/19 Subjective Update: Overnight there was difficulty with hypotension and the patient did require fluid boluses. Lactic acid level is a little better this morning. Clinically she feels better with less pain and she is more alert and interactive today. Olvera catheter removed this morning without incident. Catheter tip sent for culture. Blood cultures are growing a gram-negative rods with identification pending. No complaints of abdominal pain or nausea. White blood cell count has risen from 1999 yesterday to 20,000 today. Functional Status: Reports: Pain Controlled - Review of Systems General: Reports: Weakness. Denies: Fever Musculoskeletal: Denies: Back Pain - Patient Data Vitals - Most Recent: Last Vital Signs Temp 37.3 C 04/10/19 08:11 Pulse 105 H 04/10/19 08:11 Resp 24 H 04/10/19 08:11 BP 75/31 L 04/10/19 08:11 Pulse Ox 92 L 04/10/19 08:11 Weight - Most Recent: 52.163 kg I&O - Last 24 Hours: Intake & Output 04/09/19 04/10/19 04/10/19 22:59 06:59 14:59 Intake Total 2049 3210 Output Total 200 Balance 2049 3210 -200 Lab Results Last 24 Hours: Laboratory Results - last 24 hr 04/09/19 04/09/19 04/09/19 Range/Units 15:40 15:40 15:40 WBC 2.0 L (4.5-11.0) K/uL RBC 3.88 (3.30-5.50) M/uL Hgb 11.2 L (12.0-15.0) g/dL Hct 34.6 L (36.0-48.0) % MCV 89 (80-98) fL MCH 29 (27-31) pg MCHC 32 (32-36) % Plt Count 299 (150-400) K/uL Neut % (Auto) 65 (36-66) % Lymph % (Auto) 33 (24-44) % [place] % (Auto) 1 L (2-6) % Eos % (Auto) 1 L (2-4) % Baso % (Auto) 2 H (0-1) % Sodium 140 (140-148) mmol/L Potassium 3.9 (3.6-5.2) mmol/L Chloride 106 (100-108) mmol/L Carbon Dioxide 20 L (21-32) mmol/L Anion Gap 17.9 H (5.0-14.0) mmol/L BUN 24 H (7-18) mg/dL Creatinine 1.1 H D (0.6-1.0) mg/dL Est Cr Clr Drug Dosing 38.63 mL/min Estimated GFR (MDRD) 49 L (>60) Glucose 92 (74-106) mg/dL Lactic Acid 4.3 H (0.4-2.0) mmol/L Calcium 9.0 (8.5-10.1) mg/dL Total Bilirubin 0.4 (0.2-1.0) mg/dL AST 73 H (15-37) U/L ALT 48 (12-78) U/L Alkaline Phosphatase 130 H (46-116) U/L C-Reactive Protein 1.10 H (0.0-0.3) mg/dL Total Protein 6.4 (6.4-8.2) g/dL Albumin 3.1 L (3.4-5.0) g/dL Globulin 3.3 (2.3-3.5) g/dL Albumin/Globulin Ratio 0.9 L (1.2-2.2) 04/09/19 04/10/19 04/10/19 Range/Units 20:22 05:00 05:11 WBC 20.2 H (4.5-11.0) K/uL RBC 3.03 L (3.30-5.50) M/uL Hgb 8.8 L D (12.0-15.0) g/dL Hct 26.7 L (36.0-48.0) % MCV 88 (80-98) fL MCH 29 (27-31) pg MCHC 33 (32-36) % Plt Count 233 (150-400) K/uL Neut % (Auto) (36-66) % Lymph % (Auto) (24-44) % [place] % (Auto) (2-6) % Eos % (Auto) (2-4) % Baso % (Auto) (0-1) % Sodium (140-148) mmol/L Potassium (3.6-5.2) mmol/L Chloride (100-108) mmol/L Carbon Dioxide (21-32) mmol/L Anion Gap (5.0-14.0) mmol/L BUN (7-18) mg/dL Creatinine (0.6-1.0) mg/dL Est Cr Clr Drug Dosing mL/min Estimated GFR (MDRD) (>60) Glucose (74-106) mg/dL Lactic Acid 4.5 H 3.5 H (0.4-2.0) mmol/L Calcium (8.5-10.1) mg/dL Total Bilirubin (0.2-1.0) mg/dL AST (15-37) U/L ALT (12-78) U/L Alkaline Phosphatase (46-116) U/L C-Reactive Protein (0.0-0.3) mg/dL Total Protein (6.4-8.2) g/dL Albumin (3.4-5.0) g/dL Globulin (2.3-3.5) g/dL Albumin/Globulin Ratio (1.2-2.2) 04/10/19 Range/Units 05:11 WBC (4.5-11.0) K/uL RBC (3.30-5.50) M/uL Hgb (12.0-15.0) g/dL Hct (36.0-48.0) % MCV (80-98) fL MCH (27-31) pg MCHC (32-36) % Plt Count (150-400) K/uL Neut % (Auto) (36-66) % Lymph % (Auto) (24-44) % [place] % (Auto) (2-6) % Eos % (Auto) (2-4) % Baso % (Auto) (0-1) % Sodium 140 (140-148) mmol/L Potassium 3.9 (3.6-5.2) mmol/L Chloride 107 (100-108) mmol/L Carbon Dioxide 22 (21-32) mmol/L Anion Gap 11.5 (5.0-14.0) mmol/L BUN 30 H (7-18) mg/dL Creatinine 2.1 H D (0.6-1.0) mg/dL Est Cr Clr Drug Dosing 20.23 mL/min Estimated GFR (MDRD) 23 L (>60) Glucose 117 H (74-106) mg/dL Lactic Acid (0.4-2.0) mmol/L Calcium 7.8 L (8.5-10.1) mg/dL Total Bilirubin (0.2-1.0) mg/dL AST (15-37) U/L ALT (12-78) U/L Alkaline Phosphatase (46-116) U/L C-Reactive Protein (0.0-0.3) mg/dL Total Protein (6.4-8.2) g/dL Albumin (3.4-5.0) g/dL Globulin (2.3-3.5) g/dL Albumin/Globulin Ratio (1.2-2.2) Sergio Results Last 24 Hours: Microbiology 04/09/19 15:40 Aerobic Blood Culture - Preliminary Blood - Arm, Left Anaerobic Blood Culture - Preliminary 04/09/19 15:46 Aerobic Blood Culture - Preliminary Blood - Picc Line Anaerobic Blood Culture - Preliminary Med Orders - Current: Current Medications Acetaminophen (Tylenol) 650 mg PO Q4H PRN PRN Reason: Pain (Mild 1-3)/fever Albuterol (Proventil Neb Soln) 2.5 mg NEB Q4H PRN PRN Reason: Shortness Of Breath/wheezing Vancomycin HCl 1 gm/ Sodium (Chloride) 250 mls @ 167 mls/hr IV Q24H [facility] Meropenem 500 mg/ Sodium (Chloride) 50 mls @ 100 mls/hr IV Q12H [facility] Last Admin: 04/10/19 09:51 Dose: 100 mls/hr Lactobacillus Rhamnosus (Culturelle) 1 cap PO BID [facility] Last Admin: 04/10/19 09:53 Dose: 1 cap Levothyroxine Sodium (Synthroid) 50 mcg PO DAILY@0730 [facility] Last Admin: 04/10/19 09:53 Dose: 50 mcg Lorazepam (Ativan) 0.5 mg IVPUSH Q4H PRN PRN Reason: Nausea/Vomiting Magnesium Hydroxide (Milk Of Magnesia) 30 ml PO Q12H PRN PRN Reason: Constipation Metoclopramide HCl (Reglan) 10 mg PO WITHMEALSANDBED [facility] Last Admin: 04/10/19 09:53 Dose: 10 mg Megestrol Acetate [ (Megace Es] 625mg/5ml) 0 dose PO DAILY [facility] Last Admin: 04/10/19 09:53 Dose: 5 dose Scopolamine Patch (Check) 0 each TOP DAILY [facility] Last Admin: 04/10/19 09:44 Dose: Not Given Ondansetron HCl (Zofran Odt) 4 mg PO Q6H PRN PRN Reason: Nausea able to take PO Last Admin: 04/09/19 18:38 Dose: 4 mg Ondansetron HCl (Zofran) 4 mg IV Q6H PRN PRN Reason: Nausea/Vomiting Oxycodone HCl (Oxycodone) 5 mg PO Q4H PRN PRN Reason: Pain Pantoprazole Sodium (Protonix) 40 mg PO ACBREAKFAST [facility] Last Admin: 04/10/19 09:53 Dose: 40 mg Scopolamine (Transderm-Scop) 1.5 mg TOP Q72H [facility] Senna/Docusate Sodium (Senna Plus) 1 tab PO BID PRN PRN Reason: Constipation Discontinued Medications Acetaminophen (Tylenol) 650 mg PO NOW ONE Stop: 04/09/19 15:55 Last Admin: 04/09/19 15:59 Dose: 650 mg Hydrocortisone Sodium Succinate (Solu-Cortef) 100 mg IVPUSH ONETIME ONE Stop: 04/10/19 09:01 Last Admin: 04/10/19 09:52 Dose: 100 mg Lactated Ringer's (Ringers, Lactated) 1,000 mls @ 999 mls/hr IV ASDIRECTED [facility] Last Admin: 04/09/19 15:47 Dose: 999 mls/hr Piperacillin/Tazobactam/ (Dextrose 4.5 gm/ Premix) 100 mls @ 200 mls/hr IV NOW STA Stop: 04/09/19 15:53 Last Admin: 04/09/19 15:46 Dose: 200 mls/hr Vancomycin HCl 1 gm/ Sodium (Chloride) 250 mls @ 150 mls/hr IV ONETIME ONE Stop: 04/09/19 18:13 Last Admin: 04/09/19 16:50 Dose: 150 mls/hr Lactated Ringer's (Ringers, Lactated) 1,000 mls @ 999 mls/hr IV ASDIRECTED [facility] Stop: 04/09/19 18:01 Piperacillin Sod/Tazobactam (Sod 3.375 gm/ Sodium Chloride) 50 mls @ 100 mls/ hr IV Q6H [facility] Last Admin: 04/10/19 03:19 Dose: 100 mls/hr Sodium Chloride (Normal Saline) 1,000 mls @ 125 mls/hr IV ASDIRECTED [facility] Last Admin: 04/10/19 04:49 Dose: 125 mls/hr Lactated Ringer's (Ringers, Lactated) 1,000 mls @ 999 mls/hr IV BOLUS [facility] Last Infusion: 04/10/19 00:10 Dose: Infused Lactated Ringer's (Ringers, Lactated) 1,000 mls @ 999 mls/hr IV BOLUS [facility] Last Admin: 04/10/19 00:59 Dose: 999 mls/hr Piperacillin/Tazobactam/ (Dextrose 2.25 gm/ Premix) 50 mls @ 100 mls/hr IV Q6H [facility] Multivitamins/Minerals 10 ml/Chromium/Copper/Manganese/Seleni/Zn 1 ml/ Thiamine HCl 100 mg/ Dextrose/Lactated Ringer's 1,012 mls @ 125 mls/hr IV Q8H [facility] Stop: 04/11/19 01:29 Dextrose/Lactated Ringer's (Dextrose 5%-Lactated Ringers) 1,000 mls @ 125 mls/ hr IV ASDIRECTED [facility] Lactated Ringer's (Ringers, Lactated) 1,000 mls @ 999 mls/hr IV BOLUS ONE Stop: 04/10/19 09:34 Last Admin: 04/10/19 09:50 Dose: 999 mls/hr Metoclopramide HCl (Reglan) 10 mg PO WITHMEALSANDBED [facility] Last Admin: 04/09/19 22:38 Dose: 10 mg Metoclopramide HCl (Reglan) Confirm Administered Dose 10 mg .ROUTE .STK-MED ONE Stop: 04/09/19 22:25 Last Admin: 04/09/19 23:57 Dose: Not Given - Exam Quality Assessment: Supplemental Oxygen General: Alert, Oriented, Cooperative, No Acute Distress Lungs: Clear to Auscultation, Normal Respiratory Effort Cardiovascular: Regular Rhythm, Tachycardia GI/Abdominal Exam: Soft, Non-Tender, No Distention Extremities: No Pedal Edema. No: Increased Warmth Skin: Warm, Dry Psy/Mental Status: Alert, Normal Affect - Problem List & Annotations (1) Catheter-related bloodstream infection SNOMED Code(s): 688934784 Code(s): T80.211A - BLOODSTREAM INFECTION DUE TO CENTRAL VENOUS CATHETER, INIT Status: Suspected Current Visit: Yes Qualifiers: Encounter type: initial encounter Qualified Code(s): T80.211A - Bloodstream infection due to central venous catheter, initial encounter (2) Sepsis SNOMED Code(s): 54200505 Code(s): A41.9 - SEPSIS, UNSPECIFIED ORGANISM Status: Acute Current Visit : Yes Qualifiers: Sepsis type: sepsis due to unspecified organism Qualified Code(s): A41.9 - Sepsis, unspecified organism (3) 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 SNOMED Code(s): 608310316, 056542391 Code(s): C49.A2 - GASTROINTESTINAL STROMAL TUMOR OF STOMACH Status: Acute Current Visit: No - Problem List Review Problem List Initiated/Reviewed/Updated: Yes - My Orders Last 24 Hours: My Active Orders 04/09/19 17:00 Resuscitation Status Routine 04/09/19 17:59 Patient Status [ADT] Routine Antiembolic Devices [RC] .Routine Intake and Output [RC] QSHIFT Notify Provider Consults [RC] ASDIRECTED Notify Provider Vital Signs [RC] ASDIRECTED Oxygen Therapy [RC] PRN RT Aerosol Therapy [RC] ASDIRECTED Up With Assistance [RC] ASDIRECTED Vital Signs [RC] Q4H Consult to Physician [CONS] Routine Acetaminophen [Tylenol] 650 mg PO Q4H PRN Albuterol [Proventil Neb Soln] 2.5 mg NEB Q4H PRN Docusate Sodium/Sennosides [Senna Plus] 1 tab PO BID PRN LORazepam [Ativan] 0.5 mg IVPUSH Q4H PRN Magnesium Hydroxide [Milk of Magnesia] 30 ml PO Q12H PRN Ondansetron [Zofran ODT] 4 mg PO Q6H PRN Ondansetron [Zofran] 4 mg IV Q6H PRN oxyCODONE 5 mg PO Q4H PRN Sequential Compression Device [OM.PC] Routine 04/09/19 21:00 Lactobacillus Rhamnosus GG [Culturelle] 1 cap PO BID 04/10/19 07:30 Levothyroxine [Synthroid] 50 mcg PO DAILY@0730 Pantoprazole [ProTONIX] 40 mg PO ACBREAKFAST 04/10/19 08:00 Metoclopramide [Reglan] 10 mg PO WITHMEALSANDBED 04/10/19 09:00 Megestrol Acetate [Megace Es] 0 dose PO DAILY Meropenem [Merrem] 500 mg Sodium Chloride 0.9% [Normal Saline] 50 ml IV Q12H 04/10/19 10:06 Discontinue Telemetry Monitoring [Cardiac Monitoring Discontinue] [RC] Click to Edit 04/10/19 16:00 Vancomycin 1 gm Sodium Chloride 0.9% [Normal Saline] 250 ml IV Q24H - Plan Plan:: ASSESSMENT AND PLAN - Suspected catheter-related infection with sepsis - symptomatic after her Olvera catheter was flushed yesterday. Olvera removed this morning. Lactic acid level remains elevated and blood pressures remain low. She has recently been hospitalized and antibiotic coverage will be expanded. Clinically looks better today. -Continue vancomycin and start meropenem -Acetaminophen as needed for fever -Continue gentle IV fluids -100 mg of hydrocortisone this morning -repeat lactic acid this evening Acute kidney injury - creatinine has risen from 1 to greater than 2. Likely result of her sepsis and hopefully will improve with additional volume resuscitation and treatment of infection. -Fluids as above -Labs in the morning GIST - Diagnosed recently. She is status post surgical resection. -Outpatient follow-up Maintenance issues - - DVT prophylaxis - mechanical - GI prophylaxis - PPI - Nutrition - Regular diet this evening and nothing by mouth after midnight - Yip catheter - Not indicated Disposition - I would anticipate discharge home after the hospital stay Primary care physician - Khoi Clay M.D.
[2019-04-10] MEDS: Albuterol 0.083% 2.5 MG/3 ML Neb Soln NEB PRN (19:48)
[2019-04-11] MEDS ORDERED: Dextrose 5%-Lactated Ringers 1,000 ML IV SCH
[2019-04-11] MEDS: Sodium Chloride 0.9% 1,000 ML IV SCH ×2 (04:04→21:41)
[2019-04-11] MEDS: Levothyroxine 50 MCG Tab PO SCH (07:26)
[2019-04-11] MEDS: Pantoprazole 40 MG Tab.CR PO SCH (07:27)
[2019-04-11] MEDS: MEGESTROL ACETATE PO SCH (09:13)
[2019-04-11] MEDS: Magnesium Sulfate/Water 2 GM in Premix Bag 1 BAG IV SCH ×3 (09:13→19:34)
[2019-04-11] MEDS: Meropenem 500 MG in Sodium Chloride 0.9% 50 ML IV SCH ×2 (09:13→21:25)
[2019-04-11] MEDS: Metoclopramide 10 MG Tab PO SCH ×4 (09:13→21:18)
[2019-04-11] MEDS: Lactobacillus Rhamnosus GG (Probiotic) Cap PO SCH ×2 (09:14→21:17)
[2019-04-11] MEDS: SCOPOLAMINE PATCH CHECK TOP SCH (09:32)
--- NOTE | 2019-04-11 11:00 | PCM.PN ---
- General Info Date of Service: 04/11/19 Subjective Update: there were no acute events overnight. Blood pressure is improved today and is on the low side of normal at this time. Patient feels better today with improvement in her appetite and in her energy to a mild extent. Creatinine is slightly higher today but urine output has been improving. Heart rate has come down into the normal range. Blood culture still growing a gram-negative bacteria with identification pending. Lactic acid level trending down this morning. Functional Status: Reports: Pain Controlled, Tolerating Diet - Review of Systems General: Reports: Weakness. Denies: Fever Musculoskeletal: Denies: Back Pain - Patient Data Vitals - Most Recent: Last Vital Signs Temp 35.7 C 04/11/19 07:35 Pulse 88 04/11/19 07:35 Resp 16 04/11/19 07:35 BP 95/54 L 04/11/19 07:35 Pulse Ox 96 04/11/19 07:35 Weight - Most Recent: 52.163 kg I&O - Last 24 Hours: Intake & Output 04/10/19 04/11/19 04/11/19 22:59 06:59 14:59 Intake Total 2206 1228 Output Total 200 300 Balance 2005 92 Lab Results Last 24 Hours: Laboratory Results - last 24 hr 04/10/19 04/10/19 04/11/19 Range/Units 11:58 15:07 04:00 WBC 39.0 H* (4.5-11.0) K/uL RBC 3.14 L (3.30-5.50) M/uL Hgb 9.0 L (12.0-15.0) g/dL Hct 27.2 L (36.0-48.0) % MCV 87 (80-98) fL MCH 29 (27-31) pg MCHC 33 (32-36) % Plt Count 221 (150-400) K/uL Sodium (140-148) mmol/L Potassium (3.6-5.2) mmol/L Chloride (100-108) mmol/L Carbon Dioxide (21-32) mmol/L Anion Gap (5.0-14.0) mmol/L BUN (7-18) mg/dL Creatinine (0.6-1.0) mg/dL Est Cr Clr Drug Dosing mL/min Estimated GFR (MDRD) (>60) Glucose (74-106) mg/dL Lactic Acid 4.5 H (0.4-2.0) mmol/L Calcium (8.5-10.1) mg/dL Phosphorus (2.5-4.9) mg/dL Magnesium (1.8-2.4) mg/dL Total Bilirubin (0.2-1.0) mg/dL AST (15-37) U/L ALT (12-78) U/L Alkaline Phosphatase (46-116) U/L Total Protein (6.4-8.2) g/dL Albumin (3.4-5.0) g/dL Globulin (2.3-3.5) g/dL Albumin/Globulin Ratio (1.2-2.2) Urine Color Yellow Urine Appearance Cloudy Urine pH 5.0 (4.5-8.0) Ur Specific [place] 1.015 (1.008-1.030) Urine Protein 30 H (NEGATIVE) mg/dL Urine Glucose (UA) Normal (NEGATIVE) mg/dL Urine Ketones Negative (NEGATIVE) mg/dL Urine Occult Blood Trace (NEGATIVE) Urine Nitrite Negative (NEGATIVE) Urine Bilirubin Small (NEGATIVE) Urine Urobilinogen Normal (NORMAL) mg/dL Ur Leukocyte Esterase Small (NEGATIVE) Urine RBC 0-5 (0-5) Urine WBC 5-10 H (0-5) Ur Epithelial Cells Moderate Amorphous Sediment Many Urine Bacteria Moderate Urine Mucus Not seen Blood Type Gel Antibody Screen Crossmatch 04/11/19 04/11/19 04/11/19 Range/Units 04:00 04:00 05:00 WBC (4.5-11.0) K/uL RBC (3.30-5.50) M/uL Hgb (12.0-15.0) g/dL Hct (36.0-48.0) % MCV (80-98) fL MCH (27-31) pg MCHC (32-36) % Plt Count (150-400) K/uL Sodium 139 L (140-148) mmol/L Potassium 4.3 (3.6-5.2) mmol/L Chloride 106 (100-108) mmol/L Carbon Dioxide 18 L (21-32) mmol/L Anion Gap 19.3 H (5.0-14.0) mmol/L BUN 46 H D (7-18) mg/dL Creatinine 3.1 H (0.6-1.0) mg/dL Est Cr Clr Drug Dosing 13.71 mL/min Estimated GFR (MDRD) 15 L (>60) Glucose 152 H (74-106) mg/dL Lactic Acid 3.7 H (0.4-2.0) mmol/L Calcium 7.9 L (8.5-10.1) mg/dL Phosphorus 4.9 (2.5-4.9) mg/dL Magnesium 1.7 L D (1.8-2.4) mg/dL Total Bilirubin 0.8 D (0.2-1.0) mg/dL AST 241 H D (15-37) U/L ALT 417 H (12-78) U/L Alkaline Phosphatase 197 H (46-116) U/L Total Protein 5.4 L (6.4-8.2) g/dL Albumin 2.5 L (3.4-5.0) g/dL Globulin 2.9 (2.3-3.5) g/dL Albumin/Globulin Ratio 0.9 L (1.2-2.2) Urine Color Urine Appearance Urine pH (4.5-8.0) Ur Specific [place] (1.008-1.030) Urine Protein (NEGATIVE) mg/dL Urine Glucose (UA) (NEGATIVE) mg/dL Urine Ketones (NEGATIVE) mg/dL Urine Occult Blood (NEGATIVE) Urine Nitrite (NEGATIVE) Urine Bilirubin (NEGATIVE) Urine Urobilinogen (NORMAL) mg/dL Ur Leukocyte Esterase (NEGATIVE) Urine RBC (0-5) Urine WBC (0-5) Ur Epithelial Cells Amorphous Sediment Urine Bacteria Urine Mucus Blood Type A POSITIVE Gel Antibody Screen Negative Crossmatch See Detail Sergio Results Last 24 Hours: Microbiology 04/09/19 15:46 Aerobic Blood Culture - Preliminary Blood - Picc Line Anaerobic Blood Culture - Preliminary 04/09/19 15:40 Aerobic Blood Culture - Preliminary Blood - Arm, Left Anaerobic Blood Culture - Preliminary Med Orders - Current: Current Medications Acetaminophen (Tylenol) 650 mg PO Q4H PRN PRN Reason: Pain (Mild 1-3)/fever Albuterol (Proventil Neb Soln) 2.5 mg NEB Q4H PRN PRN Reason: Shortness Of Breath/wheezing Last Admin: 04/10/19 19:48 Dose: 2.5 mg Vancomycin HCl 1 gm/ Sodium (Chloride) 250 mls @ 167 mls/hr IV Q24H [facility] Last Admin: 04/10/19 15:30 Dose: 167 mls/hr Meropenem 500 mg/ Sodium (Chloride) 50 mls @ 100 mls/hr IV Q12H [facility] Last Admin: 04/11/19 09:13 Dose: 100 mls/hr Sodium Chloride (Normal Saline) 1,000 mls @ 100 mls/hr IV ASDIRECTED [facility] Last Admin: 04/11/19 04:04 Dose: 100 mls/hr Magnesium Sulfate 2 gm/ Premix 50 mls @ 25 mls/hr IV Q6H [facility] Stop: 04/13/19 03:59 Last Admin: 04/11/19 09:13 Dose: 25 mls/hr Lactobacillus Rhamnosus (Culturelle) 1 cap PO BID [facility] Last Admin: 04/11/19 09:14 Dose: 1 cap Levothyroxine Sodium (Synthroid) 50 mcg PO DAILY@0730 [facility] Last Admin: 04/11/19 07:26 Dose: 50 mcg Lorazepam (Ativan) 0.5 mg IVPUSH Q4H PRN PRN Reason: Nausea/Vomiting Magnesium Hydroxide (Milk Of Magnesia) 30 ml PO Q12H PRN PRN Reason: Constipation Metoclopramide HCl (Reglan) 10 mg PO WITHMEALSANDBED [facility] Last Admin: 04/11/19 09:13 Dose: 10 mg Megestrol Acetate [ (Megace Es] 625mg/5ml) 0 dose PO DAILY [facility] Last Admin: 04/11/19 09:13 Dose: 5 dose Scopolamine Patch (Check) 0 each TOP DAILY [facility] Last Admin: 04/11/19 09:32 Dose: Not Given Ondansetron HCl (Zofran Odt) 4 mg PO Q6H PRN PRN Reason: Nausea able to take PO Last Admin: 04/09/19 18:38 Dose: 4 mg Ondansetron HCl (Zofran) 4 mg IV Q6H PRN PRN Reason: Nausea/Vomiting Oxycodone HCl (Oxycodone) 5 mg PO Q4H PRN PRN Reason: Pain Pantoprazole Sodium (Protonix) 40 mg PO ACBREAKFAST [facility] Last Admin: 04/11/19 07:27 Dose: 40 mg Scopolamine (Transderm-Scop) 1.5 mg TOP Q72H [facility] Senna/Docusate Sodium (Senna Plus) 1 tab PO BID PRN PRN Reason: Constipation Discontinued Medications Acetaminophen (Tylenol) 650 mg PO NOW ONE Stop: 04/09/19 15:55 Last Admin: 04/09/19 15:59 Dose: 650 mg Hydrocortisone Sodium Succinate (Solu-Cortef) 100 mg IVPUSH ONETIME ONE Stop: 04/10/19 09:01 Last Admin: 04/10/19 09:52 Dose: 100 mg Hydrocortisone Sodium Succinate (Solu-Cortef) 100 mg IVPUSH ONETIME ONE Stop: 04/10/19 18:01 Last Admin: 04/10/19 17:16 Dose: 100 mg Lactated Ringer's (Ringers, Lactated) 1,000 mls @ 999 mls/hr IV ASDIRECTED [facility] Last Admin: 04/09/19 15:47 Dose: 999 mls/hr Piperacillin/Tazobactam/ (Dextrose 4.5 gm/ Premix) 100 mls @ 200 mls/hr IV NOW STA Stop: 04/09/19 15:53 Last Admin: 04/09/19 15:46 Dose: 200 mls/hr Vancomycin HCl 1 gm/ Sodium (Chloride) 250 mls @ 150 mls/hr IV ONETIME ONE Stop: 04/09/19 18:13 Last Admin: 04/09/19 16:50 Dose: 150 mls/hr Lactated Ringer's (Ringers, Lactated) 1,000 mls @ 999 mls/hr IV ASDIRECTED [facility] Stop: 04/09/19 18:01 Piperacillin Sod/Tazobactam (Sod 3.375 gm/ Sodium Chloride) 50 mls @ 100 mls/ hr IV Q6H [facility] Last Admin: 04/10/19 03:19 Dose: 100 mls/hr Sodium Chloride (Normal Saline) 1,000 mls @ 125 mls/hr IV ASDIRECTED [facility] Last Admin: 04/10/19 04:49 Dose: 125 mls/hr Lactated Ringer's (Ringers, Lactated) 1,000 mls @ 999 mls/hr IV BOLUS [facility] Last Infusion: 04/10/19 00:10 Dose: Infused Lactated Ringer's (Ringers, Lactated) 1,000 mls @ 999 mls/hr IV BOLUS [facility] Last Admin: 04/10/19 00:59 Dose: 999 mls/hr Piperacillin/Tazobactam/ (Dextrose 2.25 gm/ Premix) 50 mls @ 100 mls/hr IV Q6H [facility] Multivitamins/Minerals 10 ml/Chromium/Copper/Manganese/Seleni/Zn 1 ml/ Thiamine HCl 100 mg/ Dextrose/Lactated Ringer's 1,012 mls @ 125 mls/hr IV Q8H [facility] Stop: 04/11/19 01:29 Last Admin: 04/10/19 11:31 Dose: Not Given Dextrose/Lactated Ringer's (Dextrose 5%-Lactated Ringers) 1,000 mls @ 125 mls/ hr IV ASDIRECTED [facility] Lactated Ringer's (Ringers, Lactated) 1,000 mls @ 999 mls/hr IV BOLUS ONE Stop: 04/10/19 09:34 Last Admin: 04/10/19 09:50 Dose: 999 mls/hr Albumin Human (Albumin 25%) 25 gm in 100 mls @ 25 mls/hr IV ONETIME ONE Stop: 04/10/19 20:28 Last Admin: 04/10/19 17:10 Dose: 25 mls/hr Metoclopramide HCl (Reglan) 10 mg PO WITHMEALSANDBED [facility] Last Admin: 04/09/19 22:38 Dose: 10 mg Metoclopramide HCl (Reglan) Confirm Administered Dose 10 mg .ROUTE .STK-MED ONE Stop: 04/09/19 22:25 Last Admin: 04/09/19 23:57 Dose: Not Given - Exam Quality Assessment: Supplemental Oxygen General: Alert, Oriented, Cooperative, No Acute Distress Lungs: Clear to Auscultation, Normal Respiratory Effort Cardiovascular: Regular Rate, Regular Rhythm GI/Abdominal Exam: Soft, No Distention Extremities: No Pedal Edema. No: Increased Warmth Skin: Warm, Dry Psy/Mental Status: Alert, Normal Affect - Problem List & Annotations (1) Catheter-related bloodstream infection SNOMED Code(s): 194769555 Code(s): T80.211A - BLOODSTREAM INFECTION DUE TO CENTRAL VENOUS CATHETER, INIT Status: Suspected Current Visit: Yes Qualifiers: Encounter type: initial encounter Qualified Code(s): T80.211A - Bloodstream infection due to central venous catheter, initial encounter (2) Sepsis SNOMED Code(s): 53700665 Code(s): A41.9 - SEPSIS, UNSPECIFIED ORGANISM Status: Acute Current Visit : Yes Qualifiers: Sepsis type: sepsis due to unspecified organism Qualified Code(s): A41.9 - Sepsis, unspecified organism (3) 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 SNOMED Code(s): 541154450, 033842553 Code(s): C49.A2 - GASTROINTESTINAL STROMAL TUMOR OF STOMACH Status: Acute Current Visit: No - Problem List Review Problem List Initiated/Reviewed/Updated: Yes - My Orders Last 24 Hours: My Active Orders 04/10/19 10:06 Discontinue Telemetry Monitoring [Cardiac Monitoring Discontinue] [RC] Click to Edit 04/10/19 12:00 Sodium Chloride 0.9% [Normal Saline] 1,000 ml IV ASDIRECTED 04/10/19 15:20 CULTURE URINE [RM] Routine 04/10/19 16:00 Vancomycin 1 gm Sodium Chloride 0.9% [Normal Saline] 250 ml IV Q24H 04/11/19 10:59 Hydrocortisone Sod Succinate [Solu-CORTEF] 100 mg IVPUSH ONETIME ONE - Plan Plan:: ASSESSMENT AND PLAN - Suspected catheter-related infection with sepsis - symptomatic after her Olvera catheter was flushed yesterday. Olvera removed 04/10. Lactic acid level trending down. Blood pressure trending up. blood cultures growing a gram- negative rhiannon but identification is still pending. -Continue vancomycin and meropenem (patient will need a total of 2 weeks of IV antibiotics with bacteremia) -Acetaminophen as needed for fever -Continue gentle IV fluids -100 mg of hydrocortisone againthis morning -repeat lactic acid tomorrow morning Acute kidney injury - creatinine has risen from 1 to 2 and now up to 3. Urine output is improving and I would expect this number to improve overnight. -Fluids as above -Labs in the morning GIST - Diagnosed recently. She is status post surgical resection. -Outpatient follow-up Maintenance issues - - DVT prophylaxis - mechanical - GI prophylaxis - PPI - Nutrition - Regular diet - Yip catheter - Not indicated Disposition - I would anticipate discharge home after the hospital stay Primary care physician - Khoi Clay M.D.
[2019-04-11] MEDS ORDERED: Hydrocortisone Sodium Succinate 100 MG/2 ML SDV IVPUSH ONE (11:15)
[2019-04-11] MEDS: Melatonin 3 MG Tab PO SCH (21:17)
[2019-04-11] MEDS: Acetaminophen 325 MG Tab PO PRN (21:39)
[2019-04-12] MEDS: Magnesium Sulfate/Water 2 GM in Premix Bag 1 BAG IV SCH ×2 (01:49→10:27)
[2019-04-12] MEDS: Sodium Chloride 0.9% 1,000 ML IV SCH (08:30)
[2019-04-12] MEDS: Albuterol 0.083% 2.5 MG/3 ML Neb Soln NEB PRN (08:33)
[2019-04-12] MEDS: Meropenem 500 MG in Sodium Chloride 0.9% 50 ML IV SCH (09:38)
[2019-04-12] MEDS: Scopolamine 1.5 MG Transdermal Patch TOP SCH (09:39)
[2019-04-12] MEDS: Metoclopramide 10 MG Tab PO SCH ×4 (09:42→20:45)
[2019-04-12] MEDS: Lactobacillus Rhamnosus GG (Probiotic) Cap PO SCH ×2 (09:42→20:45)
[2019-04-12] MEDS: Levothyroxine 50 MCG Tab PO SCH (09:42)
[2019-04-12] MEDS: MEGESTROL ACETATE PO SCH (09:42)
[2019-04-12] MEDS: Pantoprazole 40 MG Tab.CR PO SCH (09:42)
[2019-04-12] MEDS: SCOPOLAMINE PATCH CHECK TOP SCH (09:43)
--- NOTE | 2019-04-12 09:57 | CRLCR ---
INDICATION: Shortness of breath TECHNIQUE: Portable chest Comparison chest x-ray 04/09/2019 FINDINGS: Minimal enlargement of the cardiac silhouette. Diffuse prominent interstitial markings. Small left pleural effusion which is new. Possible underlying atelectasis. No pneumothorax. Postoperative changes of the left upper abdomen IMPRESSION: Interval enlargement of the heart with perihilar interstitial opacities most likely reflecting pulmonary edema with small pleural effusion. Dictated by Jodi Toro MD @ Apr 12 2019 9:52AM Signed by Dr. Jodi Toro @ Apr 12 2019 9:55AM
--- NOTE | 2019-04-12 11:25 | PCM.PN ---
- General Info Date of Service: 04/12/19 Subjective Update: No acute events overnight but patient was more short of breath than usual this morning. She is requiring a small amount of supplemental oxygen. She did receive a nebulizer this morning and thought it helped a little bit. Chest x- ray suggested increasing pulmonary edema, probably related to volume resuscitation in the setting of sepsis. No complaints of abdominal pain or back pain. Appetite slowly improving. No fevers. Blood cultures grew out Enterobacter and catheter tip culture is still pending but is growing a gram- negative rhiannon, likely the same Enterobacter. Functional Status: Reports: Pain Controlled, Tolerating Diet - Review of Systems General: Reports: Weakness Gastrointestinal: Denies: Abdominal Pain - Patient Data Vitals - Most Recent: Last Vital Signs Temp 35.8 C 04/12/19 07:53 Pulse 88 04/12/19 07:53 Resp 20 04/12/19 07:53 BP 106/60 04/12/19 07:53 Pulse Ox 92 L 04/12/19 07:53 Weight - Most Recent: 52.163 kg I&O - Last 24 Hours: Intake & Output 04/11/19 04/12/19 04/12/19 22:59 06:59 14:59 Intake Total 2080 1564 550 Output Total 800 Balance 1280 1564 550 Lab Results Last 24 Hours: Laboratory Results - last 24 hr 04/12/19 04/12/19 04/12/19 Range/Units 05:04 05:04 05:04 WBC 39.5 H* (4.5-11.0) K/uL RBC 3.12 L (3.30-5.50) M/uL Hgb 8.9 L (12.0-15.0) g/dL Hct 26.3 L (36.0-48.0) % MCV 84 (80-98) fL MCH 29 (27-31) pg MCHC 34 (32-36) % Plt Count 168 (150-400) K/uL Sodium 139 L (140-148) mmol/L Potassium 3.6 (3.6-5.2) mmol/L Chloride 109 H (100-108) mmol/L Carbon Dioxide 16 L (21-32) mmol/L Anion Gap 17.6 H (5.0-14.0) mmol/L BUN 46 H (7-18) mg/dL Creatinine 2.6 H (0.6-1.0) mg/dL Est Cr Clr Drug Dosing 16.34 mL/min Estimated GFR (MDRD) 18 L (>60) Glucose 112 H (74-106) mg/dL Lactic Acid 1.9 (0.4-2.0) mmol/L Calcium 7.9 L (8.5-10.1) mg/dL Phosphorus 4.6 (2.5-4.9) mg/dL Total Bilirubin 0.4 (0.2-1.0) mg/dL AST 74 H (15-37) U/L ALT 260 H (12-78) U/L Alkaline Phosphatase 221 H (46-116) U/L Total Protein 5.0 L (6.4-8.2) g/dL Albumin 2.1 L (3.4-5.0) g/dL Globulin 2.9 (2.3-3.5) g/dL Albumin/Globulin Ratio 0.7 L (1.2-2.2) Sergio Results Last 24 Hours: Microbiology 04/10/19 07:22 Catheter Tip Culture - Preliminary Catheter Tip Other - Olvera Line 04/10/19 15:20 Urine Culture - Preliminary Urine, Clean Catch NO GROWTH AFTER 1 DAY 04/09/19 15:46 Aerobic Blood Culture - Final Blood - Picc Line Enterobacter Dissolvens Anaerobic Blood Culture - Final Enterobacter Dissolvens 04/09/19 15:40 Aerobic Blood Culture - Final Blood - Arm, Left Enterobacter Dissolvens Anaerobic Blood Culture - Final Enterobacter Dissolvens Med Orders - Current: Current Medications Acetaminophen (Tylenol) 650 mg PO Q4H PRN PRN Reason: Pain (Mild 1-3)/fever Last Admin: 04/11/19 21:39 Dose: 650 mg Albuterol (Proventil Neb Soln) 2.5 mg NEB Q4H PRN PRN Reason: Shortness Of Breath/wheezing Last Admin: 04/12/19 08:33 Dose: 2.5 mg Sodium Chloride (Normal Saline) 1,000 mls @ 100 mls/hr IV ASDIRECTED [facility] Last Admin: 04/12/19 08:30 Dose: 100 mls/hr Lactobacillus Rhamnosus (Culturelle) 1 cap PO BID [facility] Last Admin: 04/12/19 09:42 Dose: 1 cap Levothyroxine Sodium (Synthroid) 50 mcg PO DAILY@0730 [facility] Last Admin: 04/12/19 09:42 Dose: 50 mcg Lorazepam (Ativan) 0.5 mg IVPUSH Q4H PRN PRN Reason: Nausea/Vomiting Magnesium Hydroxide (Milk Of Magnesia) 30 ml PO Q12H PRN PRN Reason: Constipation Melatonin (Melatonin) 9 mg PO BEDTIME [facility] Last Admin: 04/11/19 21:17 Dose: 9 mg Metoclopramide HCl (Reglan) 5 mg PO WITHMEALSANDBED [facility] Last Admin: 04/12/19 09:42 Dose: 5 mg Megestrol Acetate [ (Megace Es] 625mg/5ml) 0 dose PO DAILY [facility] Last Admin: 04/12/19 09:42 Dose: 5 dose Scopolamine Patch (Check) 0 each TOP DAILY [facility] Last Admin: 04/12/19 09:43 Dose: Not Given Ondansetron HCl (Zofran Odt) 4 mg PO Q6H PRN PRN Reason: Nausea able to take PO Last Admin: 04/09/19 18:38 Dose: 4 mg Ondansetron HCl (Zofran) 4 mg IV Q6H PRN PRN Reason: Nausea/Vomiting Oxycodone HCl (Oxycodone) 5 mg PO Q4H PRN PRN Reason: Pain Pantoprazole Sodium (Protonix) 40 mg PO ACBREAKFAST [facility] Last Admin: 04/12/19 09:42 Dose: 40 mg Scopolamine (Transderm-Scop) 1.5 mg TOP Q72H [facility] Last Admin: 04/12/19 09:39 Dose: 1.5 mg Senna/Docusate Sodium (Senna Plus) 1 tab PO BID PRN PRN Reason: Constipation Discontinued Medications Acetaminophen (Tylenol) 650 mg PO NOW ONE Stop: 04/09/19 15:55 Last Admin: 04/09/19 15:59 Dose: 650 mg Hydrocortisone Sodium Succinate (Solu-Cortef) 100 mg IVPUSH ONETIME ONE Stop: 04/10/19 09:01 Last Admin: 04/10/19 09:52 Dose: 100 mg Hydrocortisone Sodium Succinate (Solu-Cortef) 100 mg IVPUSH ONETIME ONE Stop: 04/10/19 18:01 Last Admin: 04/10/19 17:16 Dose: 100 mg Hydrocortisone Sodium Succinate (Solu-Cortef) 100 mg IVPUSH ONETIME ONE Stop: 04/11/19 11:16 Last Admin: 04/11/19 13:07 Dose: 100 mg Lactated Ringer's (Ringers, Lactated) 1,000 mls @ 999 mls/hr IV ASDIRECTED [facility] Last Admin: 04/09/19 15:47 Dose: 999 mls/hr Piperacillin/Tazobactam/ (Dextrose 4.5 gm/ Premix) 100 mls @ 200 mls/hr IV NOW STA Stop: 04/09/19 15:53 Last Admin: 04/09/19 15:46 Dose: 200 mls/hr Vancomycin HCl 1 gm/ Sodium (Chloride) 250 mls @ 150 mls/hr IV ONETIME ONE Stop: 04/09/19 18:13 Last Admin: 04/09/19 16:50 Dose: 150 mls/hr Lactated Ringer's (Ringers, Lactated) 1,000 mls @ 999 mls/hr IV ASDIRECTED [facility] Stop: 04/09/19 18:01 Piperacillin Sod/Tazobactam (Sod 3.375 gm/ Sodium Chloride) 50 mls @ 100 mls/ hr IV Q6H [facility] Last Admin: 04/10/19 03:19 Dose: 100 mls/hr Sodium Chloride (Normal Saline) 1,000 mls @ 125 mls/hr IV ASDIRECTED [facility] Last Admin: 04/10/19 04:49 Dose: 125 mls/hr Lactated Ringer's (Ringers, Lactated) 1,000 mls @ 999 mls/hr IV BOLUS [facility] Last Infusion: 04/10/19 00:10 Dose: Infused Lactated Ringer's (Ringers, Lactated) 1,000 mls @ 999 mls/hr IV BOLUS [facility] Last Admin: 04/10/19 00:59 Dose: 999 mls/hr Vancomycin HCl 1 gm/ Sodium (Chloride) 250 mls @ 167 mls/hr IV Q24H [facility] Last Admin: 04/11/19 16:21 Dose: 167 mls/hr Piperacillin/Tazobactam/ (Dextrose 2.25 gm/ Premix) 50 mls @ 100 mls/hr IV Q6H [facility] Multivitamins/Minerals 10 ml/Chromium/Copper/Manganese/Seleni/Zn 1 ml/ Thiamine HCl 100 mg/ Dextrose/Lactated Ringer's 1,012 mls @ 125 mls/hr IV Q8H [facility] Stop: 04/11/19 01:29 Last Admin: 04/10/19 11:31 Dose: Not Given Dextrose/Lactated Ringer's (Dextrose 5%-Lactated Ringers) 1,000 mls @ 125 mls/ hr IV ASDIRECTED [facility] Lactated Ringer's (Ringers, Lactated) 1,000 mls @ 999 mls/hr IV BOLUS ONE Stop: 04/10/19 09:34 Last Admin: 04/10/19 09:50 Dose: 999 mls/hr Meropenem 500 mg/ Sodium (Chloride) 50 mls @ 100 mls/hr IV Q12H [facility] Last Admin: 04/12/19 09:38 Dose: 100 mls/hr Albumin Human (Albumin 25%) 25 gm in 100 mls @ 25 mls/hr IV ONETIME ONE Stop: 04/10/19 20:28 Last Admin: 04/10/19 17:10 Dose: 25 mls/hr Magnesium Sulfate 2 gm/ Premix 50 mls @ 25 mls/hr IV Q6H [facility] Stop: 04/13/19 03:59 Last Admin: 04/12/19 10:27 Dose: 25 mls/hr Aztreonam 1 gm/ Sodium (Chloride) 50 mls @ 100 mls/hr IV Q8H [facility] Last Admin: 04/12/19 10:27 Dose: 100 mls/hr [facility] ([facility]) [facility] Last Admin: 04/09/19 22:38 Dose: 10 mg Metoclopramide HCl (Reglan) Confirm Administered Dose 10 mg .ROUTE .STK-MED ONE Stop: 04/09/19 22:25 Last Admin: 04/09/19 23:57 Dose: Not Given Metoclopramide HCl (Reglan) 10 mg PO WITH[facility]ALSANDBED [facility] Last Admin: 04/11/19 13:07 Dose: 10 mg - Exam Quality Assessment: Supplemental Oxygen General: Alert, Oriented, Cooperative, No Acute Distress Lungs: Normal Respiratory Effort, Decreased Breath Sounds (mild both bases), Crackles (both bases) Cardiovascular: Regular Rhythm, Tachycardia, Murmurs GI/Abdominal Exam: Soft, No Distention Extremities: No Pedal Edema. No: Increased Warmth Skin: Warm, Dry Psy/Mental Status: Alert, Normal Affect - Problem List & Annotations (1) Catheter-related bloodstream infection SNOMED Code(s): 925296680 Code(s): T80.211A - BLOODSTREAM INFECTION DUE TO CENTRAL VENOUS CATHETER, INIT Status: Suspected Current Visit: Yes Qualifiers: Encounter type: initial encounter Qualified Code(s): T80.211A - Bloodstream infection due to central venous catheter, initial encounter (2) Sepsis SNOMED Code(s): 97596020 Code(s): A41.9 - SEPSIS, UNSPECIFIED ORGANISM Status: Acute Current Visit : Yes Qualifiers: Sepsis type: sepsis due to unspecified organism Qualified Code(s): A41.9 - Sepsis, unspecified organism (3) 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 SNOMED Code(s): 696218452, 053625847 Code(s): C49.A2 - GASTROINTESTINAL STROMAL TUMOR OF STOMACH Status: Acute Current Visit: No - Problem List Review Problem List Initiated/Reviewed/Updated: Yes - My Orders Last 24 Hours: My Active Orders 04/11/19 17:00 Metoclopramide [Reglan] 5 mg PO WITHMEALSANDBED 04/11/19 21:00 Melatonin 9 mg PO BEDTIME 04/12/19 11:23 Furosemide [Lasix] 20 mg IVPUSH ONETIME ONE Convert IV to Saline Lock [OM.PC] Routine 04/12/19 12:00 Ciprofloxacin in D5W [Cipro in D5W 400 MG/200 ML] 400 mg Premix Bag 1 bag IV Q24H - Plan Plan:: ASSESSMENT AND PLAN - Olvera catheter-related infection with sepsis - symptomatic after her Olvera catheter was flushed prior to admission removed 04/10. Lactic acid level has normalized and blood pressures have improved to the normal range. Heart rate had normalized but is slightly higher again today. There is some evidence for excess volume today, likely related to initial volume resuscitation. Clinically she is improving otherwise. 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 Cultures grew out Enterobacter which has potential to develop resistance to beta -lactam antibiotics. -Change antibiotics to ciprofloxacin, previous allergy reviewed with patient and risks are outweighed by the benefits at this time -patient will need a total of 2 weeks of IV antibiotics with bacteremia (04/11-) -Furosemide 20 mg 1 this morning -Acetaminophen as needed for fever -Saline lock IV -PICC line on Sunday Acute kidney injury - creatinine Had risen to greater than 3 but is now trending down. Urine output improving. -Labs in the morning GIST - Diagnosed recently. She is status post surgical resection. -Outpatient follow-up Maintenance issues - - DVT prophylaxis - mechanical - GI prophylaxis - PPI - Nutrition - Regular diet - Yip catheter - Not indicated Disposition - I would anticipate discharge home with home care versus subacute rehabilitation after the hospital stay Primary care physician - Khoi Clay M.D.
[2019-04-12] MEDS ORDERED: Furosemide 20 MG/2 ML VIAL IVPUSH ONE ×2 (12:00→20:30)
[2019-04-12] MEDS: Ciprofloxacin in D5W 400 MG in Premix Bag 1 BAG IV SCH ×2 (12:08)
[2019-04-12] MEDS: Acetaminophen 325 MG Tab PO PRN (14:18)
[2019-04-12] MEDS: Melatonin 3 MG Tab PO SCH (20:45)
--- NOTE | 2019-04-12 21:07 | PCM.SN ---
- Free Text/Narrative Note: Time: 20:22 call from [address] [place] [address], Mrs. Styles is short of breath, breathing faster, lungs with crackles at bases O: vital signs 36.0-84-22 B/P 109/48 A: shortness of breath P: order IV Lasix 20mg now. monitor respiratory status continue present plan of care
[2019-04-13] MEDS: Levothyroxine 50 MCG Tab PO SCH (09:19)
[2019-04-13] MEDS: Pantoprazole 40 MG Tab.CR PO SCH (09:20)
[2019-04-13] MEDS: Metoclopramide 10 MG Tab PO SCH ×4 (09:20→21:27)
[2019-04-13] MEDS: Lactobacillus Rhamnosus GG (Probiotic) Cap PO SCH ×2 (09:20→21:27)
[2019-04-13] MEDS: MEGESTROL ACETATE PO SCH (09:20)
[2019-04-13] MEDS: SCOPOLAMINE PATCH CHECK TOP SCH (09:21)
--- NOTE | 2019-04-13 10:34 | PCM.PN ---
- General Info Date of Service: 04/13/19 Subjective Update: There were no acute events overnight. Blood pressure has continued to slowly improve. Patient reports increased strength and energy though she does remain weak. No complaints of abdominal pain or back pain. White blood cell count has improved significantly. Kidney function is stable. She did require furosemide yesterday evening for increased shortness of breath. She is off supplemental oxygen this morning. Catheter tip culture did grow out Enterobacter similar to blood cultures. Functional Status: Reports: Pain Controlled, Tolerating Diet - Review of Systems General: Reports: Weakness. Denies: Fever - Patient Data Vitals - Most Recent: Last Vital Signs Temp 36.4 C 04/13/19 07:19 Pulse 85 04/13/19 07:19 Resp 18 04/13/19 07:19 BP 108/58 L 04/13/19 07:19 Pulse Ox 94 L 04/13/19 07:19 Weight - Most Recent: 52.163 kg I&O - Last 24 Hours: Intake & Output 04/12/19 04/13/19 04/13/19 22:59 06:59 14:59 Intake Total 240 Output Total 1300 1250 Balance -1060 -1250 Lab Results Last 24 Hours: Laboratory Results - last 24 hr 04/13/19 04/13/19 Range/Units 05:05 05:05 WBC 24.3 H (4.5-11.0) K/uL RBC 3.39 (3.30-5.50) M/uL Hgb 9.5 L (12.0-15.0) g/dL Hct 28.4 L (36.0-48.0) % MCV 84 (80-98) fL MCH 28 (27-31) pg MCHC 34 (32-36) % Plt Count 185 (150-400) K/uL Sodium 142 (140-148) mmol/L Potassium 3.3 L (3.6-5.2) mmol/L Chloride 110 H (100-108) mmol/L Carbon Dioxide 19 L (21-32) mmol/L Anion Gap 16.3 H (5.0-14.0) mmol/L BUN 45 H (7-18) mg/dL Creatinine 2.6 H (0.6-1.0) mg/dL Est Cr Clr Drug Dosing 16.34 mL/min Estimated GFR (MDRD) 18 L (>60) Glucose 81 (74-106) mg/dL Calcium 8.2 L (8.5-10.1) mg/dL Phosphorus 3.2 (2.5-4.9) mg/dL Total Bilirubin 0.4 (0.2-1.0) mg/dL AST 34 (15-37) U/L ALT 178 H (12-78) U/L Alkaline Phosphatase 229 H (46-116) U/L Total Protein 5.0 L (6.4-8.2) g/dL Albumin 2.0 L (3.4-5.0) g/dL Globulin 3.0 (2.3-3.5) g/dL Albumin/Globulin Ratio 0.7 L (1.2-2.2) Sergio Results Last 24 Hours: Microbiology 04/10/19 07:22 Catheter Tip Culture - Final Catheter Tip Other - Olvera Line Enterobacter Dissolvens 04/10/19 15:20 Urine Culture - Final Urine, Clean Catch NO GROWTH AFTER 2 DAYS 04/09/19 15:46 Aerobic Blood Culture - Final Blood - Picc Line Enterobacter Dissolvens Anaerobic Blood Culture - Final Enterobacter Dissolvens 04/09/19 15:40 Aerobic Blood Culture - Final Blood - Arm, Left Enterobacter Dissolvens Anaerobic Blood Culture - Final Enterobacter Dissolvens Med Orders - Current: Current Medications Acetaminophen (Tylenol) 650 mg PO Q4H PRN PRN Reason: Pain (Mild 1-3)/fever Last Admin: 04/12/19 14:18 Dose: 650 mg Albuterol (Proventil Neb Soln) 2.5 mg NEB Q4H PRN PRN Reason: Shortness Of Breath/wheezing Last Admin: 04/12/19 08:33 Dose: 2.5 mg Ciprofloxacin/Dextrose 400 mg/ (Premix) 200 mls @ 200 mls/hr IV Q24H [facility] Last Admin: 04/12/19 12:08 Dose: 200 mls/hr Lactobacillus Rhamnosus (Culturelle) 1 cap PO BID [facility] Last Admin: 04/13/19 09:20 Dose: 1 cap Levothyroxine Sodium (Synthroid) 50 mcg PO DAILY@0730 [facility] Last Admin: 04/13/19 09:19 Dose: 50 mcg Lorazepam (Ativan) 0.5 mg IVPUSH Q4H PRN PRN Reason: Nausea/Vomiting Magnesium Hydroxide (Milk Of Magnesia) 30 ml PO Q12H PRN PRN Reason: Constipation Melatonin (Melatonin) 9 mg PO BEDTIME [facility] Last Admin: 04/12/19 20:45 Dose: 9 mg Metoclopramide HCl (Reglan) 5 mg PO WITHMEALSANDBED [facility] Last Admin: 04/13/19 09:20 Dose: 5 mg Megestrol Acetate [ (Megace Es] 625mg/5ml) 0 dose PO DAILY [facility] Last Admin: 04/13/19 09:20 Dose: 1 dose Scopolamine Patch (Check) 0 each TOP DAILY [facility] Last Admin: 04/13/19 09:21 Dose: Not Given Ondansetron HCl (Zofran Odt) 4 mg PO Q6H PRN PRN Reason: Nausea able to take PO Last Admin: 04/09/19 18:38 Dose: 4 mg Ondansetron HCl (Zofran) 4 mg IV Q6H PRN PRN Reason: Nausea/Vomiting Oxycodone HCl (Oxycodone) 5 mg PO Q4H PRN PRN Reason: Pain Pantoprazole Sodium (Protonix) 40 mg PO ACBREAKFAST [facility] Last Admin: 04/13/19 09:20 Dose: 40 mg Potassium Chloride (Klor-Con M20) 40 meq PO DAILY [facility] Scopolamine (Transderm-Scop) 1.5 mg TOP Q72H [facility] Last Admin: 04/12/19 09:39 Dose: 1.5 mg Senna/Docusate Sodium (Senna Plus) 1 tab PO BID PRN PRN Reason: Constipation Discontinued Medications Acetaminophen (Tylenol) 650 mg PO NOW ONE Stop: 04/09/19 15:55 Last Admin: 04/09/19 15:59 Dose: 650 mg Furosemide (Lasix) 20 mg IVPUSH ONETIME ONE Stop: 04/12/19 12:01 Last Admin: 04/12/19 12:09 Dose: 20 mg Furosemide (Lasix) 20 mg IVPUSH ONETIME ONE Stop: 04/12/19 20:31 Last Admin: 04/12/19 20:53 Dose: 20 mg Hydrocortisone Sodium Succinate (Solu-Cortef) 100 mg IVPUSH ONETIME ONE Stop: 04/10/19 09:01 Last Admin: 04/10/19 09:52 Dose: 100 mg Hydrocortisone Sodium Succinate (Solu-Cortef) 100 mg IVPUSH ONETIME ONE Stop: 04/10/19 18:01 Last Admin: 04/10/19 17:16 Dose: 100 mg Hydrocortisone Sodium Succinate (Solu-Cortef) 100 mg IVPUSH ONETIME ONE Stop: 04/11/19 11:16 Last Admin: 04/11/19 13:07 Dose: 100 mg Lactated Ringer's (Ringers, Lactated) 1,000 mls @ 999 mls/hr IV ASDIRECTED [facility] Last Admin: 04/09/19 15:47 Dose: 999 mls/hr Piperacillin/Tazobactam/ (Dextrose 4.5 gm/ Premix) 100 mls @ 200 mls/hr IV NOW STA Stop: 04/09/19 15:53 Last Admin: 04/09/19 15:46 Dose: 200 mls/hr Vancomycin HCl 1 gm/ Sodium (Chloride) 250 mls @ 150 mls/hr IV ONETIME ONE Stop: 04/09/19 18:13 Last Admin: 04/09/19 16:50 Dose: 150 mls/hr Lactated Ringer's (Ringers, Lactated) 1,000 mls @ 999 mls/hr IV ASDIRECTED [facility] Stop: 04/09/19 18:01 Piperacillin Sod/Tazobactam (Sod 3.375 gm/ Sodium Chloride) 50 mls @ 100 mls/ hr IV Q6H [facility] Last Admin: 04/10/19 03:19 Dose: 100 mls/hr Sodium Chloride (Normal Saline) 1,000 mls @ 125 mls/hr IV ASDIRECTED [facility] Last Admin: 04/10/19 04:49 Dose: 125 mls/hr Lactated Ringer's (Ringers, Lactated) 1,000 mls @ 999 mls/hr IV BOLUS [facility] Last Infusion: 04/10/19 00:10 Dose: Infused Lactated Ringer's (Ringers, Lactated) 1,000 mls @ 999 mls/hr IV BOLUS [facility] Last Admin: 04/10/19 00:59 Dose: 999 mls/hr Vancomycin HCl 1 gm/ Sodium (Chloride) 250 mls @ 167 mls/hr IV Q24H [facility] Last Admin: 04/11/19 16:21 Dose: 167 mls/hr Piperacillin/Tazobactam/ (Dextrose 2.25 gm/ Premix) 50 mls @ 100 mls/hr IV Q6H [facility] Multivitamins/Minerals 10 ml/Chromium/Copper/Manganese/Seleni/Zn 1 ml/ Thiamine HCl 100 mg/ Dextrose/Lactated Ringer's 1,012 mls @ 125 mls/hr IV Q8H [facility] Stop: 04/11/19 01:29 Last Admin: 04/10/19 11:31 Dose: Not Given Dextrose/Lactated Ringer's (Dextrose 5%-Lactated Ringers) 1,000 mls @ 125 mls/ hr IV ASDIRECTED [facility] Lactated Ringer's (Ringers, Lactated) 1,000 mls @ 999 mls/hr IV BOLUS ONE Stop: 04/10/19 09:34 Last Admin: 04/10/19 09:50 Dose: 999 mls/hr Meropenem 500 mg/ Sodium (Chloride) 50 mls @ 100 mls/hr IV Q12H [facility] Last Admin: 04/12/19 09:38 Dose: 100 mls/hr Sodium Chloride (Normal Saline) 1,000 mls @ 100 mls/hr IV ASDIRECTED [facility] Last Admin: 04/12/19 08:30 Dose: 100 mls/hr Albumin Human (Albumin 25%) 25 gm in 100 mls @ 25 mls/hr IV ONETIME ONE Stop: 04/10/19 20:28 Last Admin: 04/10/19 17:10 Dose: 25 mls/hr Magnesium Sulfate 2 gm/ Premix 50 mls @ 25 mls/hr IV Q6H [facility] Stop: 04/13/19 03:59 Last Admin: 04/12/19 10:27 Dose: 25 mls/hr Aztreonam 1 gm/ Sodium (Chloride) 50 mls @ 100 mls/hr IV Q8H [facility] Last Admin: 04/12/19 10:27 Dose: 100 mls/hr Metoclopramide HCl (Reglan) 10 mg PO WITHMEALSANDBED [facility] Last Admin: 04/09/19 22:38 Dose: 10 mg Metoclopramide HCl (Reglan) Confirm Administered Dose 10 mg .ROUTE .STK-MED ONE Stop: 04/09/19 22:25 Last Admin: 04/09/19 23:57 Dose: Not Given [facility]) [facility] Admin: 04/11/19 13:07 Dose: 10 mg - Exam Quality Assessment: No: Supplemental Oxygen General: Alert, Oriented, Cooperative, No Acute Distress Lungs: Normal Respiratory Effort GI/Abdominal Exam: Soft, No Distention Extremities: No Pedal Edema. No: Increased Warmth Skin: Warm, Dry Psy/Mental Status: Alert, Normal Affect - Problem List & Annotations (1) Catheter-related bloodstream infection SNOMED Code(s): 563805396 Code(s): T80.211A - BLOODSTREAM INFECTION DUE TO CENTRAL VENOUS CATHETER, INIT Status: Suspected Current Visit: Yes Qualifiers: Encounter type: initial encounter Qualified Code(s): T80.211A - Bloodstream infection due to central venous catheter, initial encounter (2) Sepsis SNOMED Code(s): 77530575 Code(s): A41.9 - SEPSIS, UNSPECIFIED ORGANISM Status: Acute Current Visit : Yes Qualifiers: Sepsis type: sepsis due to unspecified organism Qualified Code(s): A41.9 - Sepsis, unspecified organism (3) 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 SNOMED Code(s): 004134566, 758271869 Code(s): C49.A2 - GASTROINTESTINAL STROMAL TUMOR OF STOMACH Status: Acute Current Visit: No - Problem List Review Problem List Initiated/Reviewed/Updated: Yes - My Orders Last 24 Hours: My Active Orders 04/12/19 11:23 Convert IV to Saline Lock [OM.PC] Routine 04/12/19 12:00 Ciprofloxacin in D5W [Cipro in D5W 400 MG/200 ML] 400 mg Premix Bag 1 bag IV Q24H 04/13/19 04:30 CULTURE BLOOD [BC] Routine 04/13/19 10:45 Potassium Chloride [Klor-Con M20] 40 meq PO DAILY 04/14/19 05:00 BASIC METABOLIC PANEL,BMP [CHEM] Timed CBC W/O DIFF,HEMOGRAM [HEME] Timed (1) 04/14/19 07:00 Central Line PICC Insertion [Central Venous Line Insertion] [OM.PC] Routine - Plan Plan:: ASSESSMENT AND PLAN - Olvera catheter-related infection with sepsis - symptomatic after her Olvera catheter was flushed prior to admission removed 04/10. Lactic acid level has normalized and blood pressures have improved to the normal range. Cultures from blood and catheter tip grew out Enterobacter which has potential to develop resistance to beta-lactam antibiotics. -Continue ciprofloxacin, previous allergy reviewed with patient and risks are outweighed by the benefits at this time -patient will need a total of 2 weeks of IV antibiotics with bacteremia (04/11-) -Acetaminophen as needed for fever -Saline lock IV -PICC line on Sunday -Physical therapy tomorrow Acute kidney injury - creatinine Had risen to greater than 3 but is now trending down. Urine output improving. -Labs in the morning GIST - Diagnosed recently. She is status post surgical resection. -Outpatient follow-up in [place] Maintenance issues - - DVT prophylaxis - mechanical - GI prophylaxis - PPI - Nutrition - Regular diet - Yip catheter - Not indicated Disposition - I would anticipate discharge home with home care versus subacute rehabilitation after the hospital stay Primary care physician - Khoi Clay M.D.
[2019-04-13] MEDS: Ciprofloxacin in D5W 400 MG in Premix Bag 1 BAG IV SCH ×2 (12:12)
[2019-04-13] MEDS: Potassium Chloride 20 MEQ Tab.ER PO SCH (12:12)
--- NOTE | 2019-04-13 12:14 | PN ---
DATE OF SERVICE: 04/10/2019 A 73-year-old recently status post a procedure for recurrent gastrointestinal stromal tumor who had a Olvera catheter in place. She came in with fever and evident element of sepsis and was started on antibiotics. The Olvera catheter was removed at the bedside this morning and cultures obtained from some of the contents within the Olvera catheter. Continue the antibiotics per Dr. Clay. I think we can restart her diet at this point, and we will make sure she has her scopolamine patch and is restarting her Megace. In the past, she has taken Ensure Clear, which has quite a bit in the way of protein and calories, t.i.d. between meals. Otherwise, her hemoglobin is 8.8. We will recheck that tomorrow along with probably giving a transfusion. With the ongoing sepsis today, I think we will hold off on the transfusion for today due to the immunosuppressive effects of the transfusions. Her creatinine did bump up from 1.1 to 2.1. She did receive some 2 L of IV fluid overnight as boluses, and we will need to establish if she is getting going on some urine output as the day goes by. Joseph Salazar MD /[id number]
--- NOTE | 2019-04-13 12:50 | PN ---
DATE OF SERVICE: 04/12/2019 The patient has been now afebrile with stable vital signs. Oral intake is fairly good around 1470 recorded in. Urine output still remains low, though I am not sure all of this is being accurately recorded. Given this, we will keep the IV rate running presently in addition to the oral intake. Cultures came back showing Enterobacter, which is sensitive to meropenem. Vancomycin and Azactam to be mixed to double cover the gram-negative and then we will leave that up to Dr. Clay whether or not to continue the vancomycin. The patient's white count remains quite high. 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 Hemoglobin is 8.9, then I think we will hold off on transfusions transfusions would have some degree of immunosuppressive effects. Joseph Salazar MD /[id number]
--- NOTE | 2019-04-13 13:26 | PN ---
DATE OF SERVICE: 04/13/2019 The patient has been afebrile with stable vital signs. Oral intake was a little bit less yesterday, although it may not have all been recorded. We will have Dietary see the patient regarding developing a plan to increase calories and protein intake tomorrow morning, and otherwise continue the present antibiotics per Dr. Clay. Joseph Salazar MD /[id number]
[2019-04-13] MEDS: Melatonin 3 MG Tab PO SCH (21:27)
[2019-04-13] MEDS: Acetaminophen 325 MG Tab PO PRN (21:30)
[2019-04-14] MEDS: Levothyroxine 50 MCG Tab PO SCH (07:11)
[2019-04-14] MEDS: Pantoprazole 40 MG Tab.CR PO SCH (07:11)
[2019-04-14] MEDS: Metoclopramide 10 MG Tab PO SCH ×4 (07:11→21:16)
--- NOTE | 2019-04-14 08:17 | PN ---
DATE OF SERVICE: 04/11/2019 The patient normothermic but remains fairly septic in appearance with relatively low blood pressures. Urine output has been below what one would anticipate. Creatinine did bump up to the 3.1 range. She is alert and otherwise conversant, complaining of some dry throat and such. Labs show white count of 39,000, part of that is elevated related to the splenectomy status. Her hemoglobin is up a little bit at 9.0. I do not think we will transfuse for today due to the immunosuppressive effects of transfusions, given the overall clinical context. Continue present antibiotics and assistance with the hospitalist. Joseph Salazar MD /[id number]
[2019-04-14] MEDS: Potassium Chloride 20 MEQ Tab.ER PO SCH (09:08)
[2019-04-14] MEDS: SCOPOLAMINE PATCH CHECK TOP SCH (09:09)
[2019-04-14] MEDS: Lactobacillus Rhamnosus GG (Probiotic) Cap PO SCH ×2 (09:09→21:16)
[2019-04-14] MEDS: MEGESTROL ACETATE PO SCH (09:09)
[2019-04-14] MEDS ORDERED: Furosemide 40 MG/4 ML VIAL IVPUSH ONE (10:50)
[2019-04-14] MEDS: Acyclovir 200 MG Cap PO SCH ×2 (12:07→19:15)
[2019-04-14] MEDS: Ciprofloxacin in D5W 400 MG in Premix Bag 1 BAG IV SCH ×2 (12:25)
--- NOTE | 2019-04-14 13:01 | PCM.PN ---
- General Info Date of Service: 04/14/19 Subjective Update: Ms. Styles has done well since yesterday, slow improvement in appetite as well as overall energy level and strength. Vital signs have remained stable and she has been afebrile. Further good improvement in white blood cell count and slow improvement in renal function. - Review of Systems General: Reports: Weakness, Appetite. Denies: Fever, Chills Pulmonary: Reports: No Symptoms Cardiovascular: Reports: No Symptoms Gastrointestinal: Reports: No Symptoms - Patient Data Vitals - Most Recent: Last Vital Signs Temp 97.6 F 04/14/19 12:31 Pulse 105 H 04/14/19 12:31 Resp 16 04/14/19 12:31 BP 116/49 L 04/14/19 12:31 Pulse Ox 96 04/14/19 12:31 Weight - Most Recent: 114 lb 15.996 oz I&O - Last 24 Hours: Intake & Output 04/13/19 04/14/19 04/14/19 22:59 06:59 14:59 Intake Total 890 620 Output Total 900 900 Balance -10 -280 Lab Results Last 24 Hours: Laboratory Results - last 24 hr 04/14/19 04/14/19 Range/Units 05:47 05:47 WBC 14.4 H (4.5-11.0) K/uL RBC 3.49 (3.30-5.50) M/uL Hgb 9.9 L (12.0-15.0) g/dL Hct 29.7 L (36.0-48.0) % MCV 85 (80-98) fL MCH 28 (27-31) pg MCHC 33 (32-36) % Plt Count 185 (150-400) K/uL Sodium 141 (140-148) mmol/L Potassium 4.4 (3.6-5.2) mmol/L Chloride 110 H (100-108) mmol/L Carbon Dioxide 21 (21-32) mmol/L Anion Gap 14.4 H (5.0-14.0) mmol/L BUN 40 H (7-18) mg/dL Creatinine 2.3 H (0.6-1.0) mg/dL Est Cr Clr Drug Dosing 18.47 mL/min Estimated GFR (MDRD) 21 L (>60) Glucose 83 (74-106) mg/dL Calcium 8.3 L (8.5-10.1) mg/dL Sergio Results Last 24 Hours: Microbiology 04/13/19 04:30 Aerobic Blood Culture - Preliminary Blood NO GROWTH AFTER 1 DAY Anaerobic Blood Culture - Preliminary NO GROWTH AFTER 1 DAY Med Orders - Current: Current Medications Acetaminophen (Tylenol) 650 mg PO Q4H PRN PRN Reason: Pain (Mild 1-3)/fever Last Admin: 04/13/19 21:30 Dose: 650 mg Acyclovir (Zovirax) 800 mg PO Q8H [facility] Last Admin: 04/14/19 12:07 Dose: 800 mg Albuterol (Proventil Neb Soln) 2.5 mg NEB Q4H PRN PRN Reason: Shortness Of Breath/wheezing Last Admin: 04/12/19 08:33 Dose: 2.5 mg Ciprofloxacin/Dextrose 400 mg/ (Premix) 200 mls @ 200 mls/hr IV Q24H [facility] Last Admin: 04/14/19 12:25 Dose: 200 mls/hr Lactobacillus Rhamnosus (Culturelle) 1 cap PO BID [facility] Last Admin: 04/14/19 09:09 Dose: 1 cap Levothyroxine Sodium (Synthroid) 50 mcg PO DAILY@0730 [facility] Last Admin: 04/14/19 07:11 Dose: 50 mcg Lorazepam (Ativan) 0.5 mg IVPUSH Q4H PRN PRN Reason: Nausea/Vomiting Magnesium Hydroxide (Milk Of Magnesia) 30 ml PO Q12H PRN PRN Reason: Constipation Melatonin (Melatonin) 9 mg PO BEDTIME [facility] Last Admin: 04/13/19 21:27 Dose: 9 mg Metoclopramide HCl (Reglan) 5 mg PO WITHMEALSANDBED [facility] Last Admin: 04/14/19 12:07 Dose: 5 mg Megestrol Acetate [ (Megace Es] 625mg/5ml) 0 dose PO DAILY [facility] Last Admin: 04/14/19 09:09 Dose: 1 dose Scopolamine Patch (Check) 0 each TOP DAILY [facility] Last Admin: 04/14/19 09:09 Dose: Not Given Ondansetron HCl (Zofran Odt) 4 mg PO Q6H PRN PRN Reason: Nausea able to take PO Last Admin: 04/09/19 18:38 Dose: 4 mg Ondansetron HCl (Zofran) 4 mg IV Q6H PRN PRN Reason: Nausea/Vomiting Oxycodone HCl (Oxycodone) 5 mg PO Q4H PRN PRN Reason: Pain Pantoprazole Sodium (Protonix) 40 mg PO ACBREAKFAST [facility] Last Admin: 04/14/19 07:11 Dose: 40 mg Potassium Chloride (Klor-Con M20) 40 meq PO DAILY [facility] Last Admin: 04/14/19 09:08 Dose: 40 meq Scopolamine (Transderm-Scop) 1.5 mg TOP Q72H [facility] Last Admin: 04/12/19 09:39 Dose: 1.5 mg Senna/Docusate Sodium (Senna Plus) 1 tab PO BID PRN PRN Reason: Constipation Discontinued Medications Acetaminophen (Tylenol) 650 mg PO NOW ONE Stop: 04/09/19 15:55 Last Admin: 04/09/19 15:59 Dose: 650 mg Furosemide (Lasix) 20 mg IVPUSH ONETIME ONE Stop: 04/12/19 12:01 Last Admin: 04/12/19 12:09 Dose: 20 mg Furosemide (Lasix) 20 mg IVPUSH ONETIME ONE Stop: 04/12/19 20:31 Last Admin: 04/12/19 20:53 Dose: 20 mg Furosemide (Lasix) 40 mg IVPUSH NOW ONE Stop: 04/14/19 10:51 Last Admin: 04/14/19 12:19 Dose: 40 mg Hydrocortisone Sodium Succinate (Solu-Cortef) 100 mg IVPUSH ONETIME ONE Stop: 04/10/19 09:01 Last Admin: 04/10/19 09:52 Dose: 100 mg Hydrocortisone Sodium Succinate (Solu-Cortef) 100 mg IVPUSH ONETIME ONE Stop: 04/10/19 18:01 Last Admin: 04/10/19 17:16 Dose: 100 mg Hydrocortisone Sodium Succinate (Solu-Cortef) 100 mg IVPUSH ONETIME ONE Stop: 04/11/19 11:16 Last Admin: 04/11/19 13:07 Dose: 100 mg Lactated Ringer's (Ringers, Lactated) 1,000 mls @ 999 mls/hr IV ASDIRECTED [facility] Last Admin: 04/09/19 15:47 Dose: 999 mls/hr Piperacillin/Tazobactam/ (Dextrose 4.5 gm/ Premix) 100 mls @ 200 mls/hr IV NOW STA Stop: 04/09/19 15:53 Last Admin: 04/09/19 15:46 Dose: 200 mls/hr Vancomycin HCl 1 gm/ Sodium (Chloride) 250 mls @ 150 mls/hr IV ONETIME ONE Stop: 04/09/19 18:13 Last Admin: 04/09/19 16:50 Dose: 150 mls/hr Lactated Ringer's (Ringers, Lactated) 1,000 mls @ 999 mls/hr IV ASDIRECTED [facility] Stop: 04/09/19 18:01 Piperacillin Sod/Tazobactam (Sod 3.375 gm/ Sodium Chloride) 50 mls @ 100 mls/ hr IV Q6H [facility] Last Admin: 04/10/19 03:19 Dose: 100 mls/hr Sodium Chloride (Normal Saline) 1,000 mls @ 125 mls/hr IV ASDIRECTED [facility] Last Admin: 04/10/19 04:49 Dose: 125 mls/hr Lactated Ringer's (Ringers, Lactated) 1,000 mls @ 999 mls/hr IV BOLUS [facility] Last Infusion: 04/10/19 00:10 Dose: Infused Lactated Ringer's (Ringers, Lactated) 1,000 mls @ 999 mls/hr IV BOLUS [facility] Last Admin: 04/10/19 00:59 Dose: 999 mls/hr Vancomycin HCl 1 gm/ Sodium (Chloride) 250 mls @ 167 mls/hr IV Q24H [facility] Last Admin: 04/11/19 16:21 Dose: 167 mls/hr Piperacillin/Tazobactam/ (Dextrose 2.25 gm/ Premix) 50 mls @ 100 mls/hr IV Q6H [facility] Multivitamins/Minerals 10 ml/Chromium/Copper/Manganese/Seleni/Zn 1 ml/ Thiamine HCl 100 mg/ Dextrose/Lactated Ringer's 1,012 mls @ 125 mls/hr IV Q8H [facility] Stop: 04/11/19 01:29 Last Admin: 04/10/19 11:31 Dose: Not Given Dextrose/Lactated Ringer's (Dextrose 5%-Lactated Ringers) 1,000 mls @ 125 mls/ hr IV ASDIRECTED [facility] Lactated Ringer's (Ringers, Lactated) 1,000 mls @ 999 mls/hr IV BOLUS ONE Stop: 04/10/19 09:34 Last Admin: 04/10/19 09:50 Dose: 999 mls/hr Meropenem 500 mg/ Sodium (Chloride) 50 mls @ 100 mls/hr IV Q12H [facility] Last Admin: 04/12/19 09:38 Dose: 100 mls/hr Sodium Chloride (Normal Saline) 1,000 mls @ 100 mls/hr IV ASDIRECTED [facility] Last Admin: 04/12/19 08:30 Dose: 100 mls/hr Albumin Human (Albumin 25%) 25 gm in 100 mls @ 25 mls/hr IV ONETIME ONE Stop: 04/10/19 20:28 Last Admin: 04/10/19 17:10 Dose: 25 mls/hr Magnesium Sulfate 2 gm/ Premix 50 mls @ 25 mls/hr IV Q6H [facility] Stop: 04/13/19 03:59 Last Admin: 04/12/19 10:27 Dose: 25 mls/hr Aztreonam 1 gm/ Sodium (Chloride) 50 mls @ 100 mls/hr IV Q8H [facility] Last Admin: 04/12/19 10:27 Dose: 100 mls/hr Metoclopramide HCl (Reglan) 10 mg PO WITHMEALSANDBED [facility] Last Admin: 04/09/19 22:38 Dose: 10 mg Metoclopramide HCl (Reglan) Confirm Administered Dose 10 mg .ROUTE .STK-MED ONE Stop: 04/09/19 22:25 Last Admin: 04/09/19 23:57 Dose: Not Given Metoclopramide HCl (Reglan) 10 mg PO WITHMEALSANDBED [facility] Last Admin: 04/11/19 13:07 Dose: 10 mg - Exam Quality Assessment: DVT Prophylaxis General: Alert, Oriented, Cooperative, Mild Distress Lungs: Clear to Auscultation, Normal Respiratory Effort Cardiovascular: Regular Rate, Regular Rhythm, No Murmurs GI/Abdominal Exam: Soft, Non-Tender, No Organomegaly, No Distention - Problem List Review Problem List Initiated/Reviewed/Updated: Yes - My Orders Last 24 Hours: My Active Orders 04/14/19 11:00 Acyclovir [Zovirax] 800 mg PO Q8H 04/15/19 05:00 BASIC METABOLIC PANEL,BMP [CHEM] Timed CBC WITH AUTO DIFF [HEME] Timed - Plan Plan:: ASSESSMENT AND PLAN - Olvera catheter-related infection with sepsis - symptomatic after her Olvera catheter was flushed prior to admission removed 04/10. Sepsis and fever have resolved, white blood cell count now most within normal range. Cultures from blood and catheter tip grew out Enterobacter which has potential to develop resistance to beta-lactam antibiotics. -Continue ciprofloxacin, previous allergy reviewed with patient and risks are outweighed by the benefits at this time -patient will need a total of 2 weeks of IV antibiotics with bacteremia (04/11-) -Acetaminophen as needed for fever -Saline lock IV -PICC line tomorrow -Physical therapy Fluid retention -Furosemide 40 mg IV today -Reassess in a.m. Acute kidney injury - further improvement in renal function over the last 24 hours -Labs in the morning GIST - Diagnosed recently. She is status post surgical resection. -Outpatient follow-up in [place] Maintenance issues - - DVT prophylaxis - mechanical - GI prophylaxis - PPI - Nutrition - Regular diet - Yip catheter - Not indicated Disposition - I would anticipate discharge home with home care versus subacute rehabilitation after the hospital stay Primary care physician - Khoi CHAMBERS
[2019-04-14] MEDS: Melatonin 3 MG Tab PO SCH (21:16)
[2019-04-15] MEDS: Acyclovir 200 MG Cap PO SCH ×3 (02:49→17:59)
[2019-04-15] MEDS: Metoclopramide 10 MG Tab PO SCH ×4 (07:15→21:35)
[2019-04-15] MEDS: Pantoprazole 40 MG Tab.CR PO SCH (07:15)
[2019-04-15] MEDS: Levothyroxine 50 MCG Tab PO SCH (07:15)
--- NOTE | 2019-04-15 07:42 | OR ---
DATE OF PROCEDURE: 04/10/2019 SURGEON: Joseph Salazar MD PREOPERATIVE DIAGNOSES: Sepsis with possible infected Olvera catheter. POSTOPERATIVE DIAGNOSES: Sepsis with possible infected Olvera catheter. OPERATIVE PROCEDURE: Removal of Olvera catheter ([id number]). ANESTHESIA: None. INDICATION FOR PROCEDURE: The patient is recently status post Olvera catheter for facilitation of IV access including postoperative TPN. The patient presents now with high fever and a picture of sepsis. As the line appears to be the likely source of the problem, this is to be removed. Potential risks including bleeding and infection were reviewed with the patient, and she wishes to proceed. DETAILS OF PROCEDURE: In the patient's hospital bed, the area of Olvera catheter was examined. This was felt to be fairly mobile at this point, and the stitch holding it in place was divided. The fibrous cuff at this point was not adherent, as this had been placed fairly recently, and the catheter was then removed without difficulty. Pressure was applied. A small amount of the bloody contents at the end of catheter was then expressed into an aerobic and anaerobic culturette, and a dressing applied. There were no evident complications. Joseph Salazar MD /[id number]
--- NOTE | 2019-04-15 08:36 | PN ---
DATE OF SERVICE: 04/15/2019 SUBJECTIVE: Gayatri is alert, orientated, sitting up in bed, reading a book. She has been afebrile. Eating has been going better she states. Oral intake is 1170. Urine output is 4050. OBJECTIVE: HEENT: Negative. NECK: Supple. HEART: Regular rate and rhythm. LUNGS: Clear. ASSESSMENT: 1. Sepsis and fever, resolved. 2. Fluid retention. 3. Acute kidney injury. 4. Gastrointestinal stromal tumor/GIST. PLAN: Continue antibiotic therapy, managed by Joseph Wilson MD. Tenisha Horton PA-C /[id number]
[2019-04-15] MEDS: MEGESTROL ACETATE PO SCH (08:54)
[2019-04-15] MEDS: Potassium Chloride 20 MEQ Tab.ER PO SCH (08:55)
[2019-04-15] MEDS: Lactobacillus Rhamnosus GG (Probiotic) Cap PO SCH ×2 (08:55→21:30)
[2019-04-15] MEDS: SCOPOLAMINE PATCH CHECK TOP SCH (08:56)
[2019-04-15] MEDS: Scopolamine 1.5 MG Transdermal Patch TOP SCH (08:56)
[2019-04-15] MEDS ORDERED: Furosemide 40 MG/4 ML VIAL IVPUSH ONE (14:18)
--- NOTE | 2019-04-15 14:24 | PCM.PN ---
- General Info Date of Service: 04/15/19 Subjective Update: Ms. Styles has been stable over the last 24 hours, there is been further improvement in white blood cell count and renal function. She did experience a transient episode of rapid heart rate earlier today that lasted a few minutes. Blood cultures obtained after antibiotics have been initiated and Olvera removal, remain negative. Functional Status: Reports: Tolerating Diet, Ambulating, Urinating - Review of Systems General: Reports: Weakness. Denies: Fever, Chills Pulmonary: Reports: No Symptoms Cardiovascular: Reports: No Symptoms Gastrointestinal: Reports: No Symptoms - Patient Data Vitals - Most Recent: Last Vital Signs Temp 97.0 F 04/15/19 10:58 Pulse 94 04/15/19 10:58 Resp 18 04/15/19 10:58 BP 112/61 04/15/19 10:58 Pulse Ox 94 L 04/15/19 10:58 Weight - Most Recent: 114 lb 15.996 oz I&O - Last 24 Hours: Intake & Output 04/14/19 04/15/19 04/15/19 22:59 06:59 14:59 Intake Total 150 480 416 Output Total 1000 1250 400 Balance -850 -770 16 Lab Results Last 24 Hours: Laboratory Results - last 24 hr 04/11/19 04/15/19 04/15/19 Range/Units 04:00 05:10 05:10 WBC 12.6 H (4.5-11.0) K/uL RBC 3.36 (3.30-5.50) M/uL Hgb 9.5 L (12.0-15.0) g/dL Hct 28.6 L (36.0-48.0) % MCV 85 (80-98) fL MCH 28 (27-31) pg MCHC 33 (32-36) % Plt Count 197 (150-400) K/uL Neut % (Auto) 51 (36-66) % Lymph % (Auto) 31 (24-44) % [place] % (Auto) 12 H (2-6) % Eos % (Auto) 6 H (2-4) % Baso % (Auto) 0 (0-1) % Sodium 140 (140-148) mmol/L Potassium 4.2 (3.6-5.2) mmol/L Chloride 108 (100-108) mmol/L Carbon Dioxide 22 (21-32) mmol/L Anion Gap 10.1 (5.0-14.0) mmol/L BUN 39 H (7-18) mg/dL Creatinine 2.1 H (0.6-1.0) mg/dL Est Cr Clr Drug Dosing 20.23 mL/min Estimated GFR (MDRD) 23 L (>60) Glucose 85 (74-106) mg/dL Calcium 8.3 L (8.5-10.1) mg/dL Crossmatch See Detail Sergio Results Last 24 Hours: Microbiology 04/13/19 04:30 Aerobic Blood Culture - Preliminary Blood NO GROWTH AFTER 2 DAYS Anaerobic Blood Culture - Preliminary NO GROWTH AFTER 2 DAYS Med Orders - Current: Current Medications Acetaminophen (Tylenol) 650 mg PO Q4H PRN PRN Reason: Pain (Mild 1-3)/fever Last Admin: 04/13/19 21:30 Dose: 650 mg Acyclovir (Zovirax) 800 mg PO Q8H [facility] Last Admin: 04/15/19 11:36 Dose: 800 mg Albuterol (Proventil Neb Soln) 2.5 mg NEB Q4H PRN PRN Reason: Shortness Of Breath/wheezing Last Admin: 04/12/19 08:33 Dose: 2.5 mg Ciprofloxacin/Dextrose 400 mg/ (Premix) 200 mls @ 200 mls/hr IV Q24H [facility] Lactobacillus Rhamnosus (Culturelle) 1 cap PO BID [facility] Last Admin: 04/15/19 08:55 Dose: 1 cap Levothyroxine Sodium (Synthroid) 50 mcg PO DAILY@0730 [facility] Last Admin: 04/15/19 07:15 Dose: 50 mcg Lorazepam (Ativan) 0.5 mg IVPUSH Q4H PRN PRN Reason: Nausea/Vomiting Magnesium Hydroxide (Milk Of Magnesia) 30 ml PO Q12H PRN PRN Reason: Constipation Melatonin (Melatonin) 9 mg PO BEDTIME [facility] Last Admin: 04/14/19 21:16 Dose: 9 mg Metoclopramide HCl (Reglan) 5 mg PO WITHMEALSANDBED [facility] Last Admin: 04/15/19 11:37 Dose: 5 mg Megestrol Acetate [ (Megace Es] 625mg/5ml) 0 dose PO DAILY [facility] Last Admin: 04/15/19 08:54 Dose: 5 dose Scopolamine Patch (Check) 0 each TOP DAILY [facility] Last Admin: 04/15/19 08:56 Dose: Not Given Non-Formulary Medication (Pindolol [Pindolol]) 5 mg PO DAILY [facility] Ondansetron HCl (Zofran Odt) 4 mg PO Q6H PRN PRN Reason: Nausea able to take PO Last Admin: 04/09/19 18:38 Dose: 4 mg Ondansetron HCl (Zofran) 4 mg IV Q6H PRN PRN Reason: Nausea/Vomiting Oxycodone HCl (Oxycodone) 5 mg PO Q4H PRN PRN Reason: Pain Pantoprazole Sodium (Protonix) 40 mg PO ACBREAKFAST [facility] Last Admin: 04/15/19 07:15 Dose: 40 mg Potassium Chloride (Klor-Con M20) 40 meq PO DAILY [facility] Last Admin: 04/15/19 08:55 Dose: 40 meq Ranitidine HCl (Zantac) 150 mg PO BEDTIME [facility] Scopolamine (Transderm-Scop) 1.5 mg TOP Q72H [facility] Last Admin: 04/15/19 08:56 Dose: 1.5 mg Senna/Docusate Sodium (Senna Plus) 1 tab PO BID PRN PRN Reason: Constipation Discontinued Medications Acetaminophen (Tylenol) 650 mg PO NOW ONE Stop: 04/09/19 15:55 Last Admin: 04/09/19 15:59 Dose: 650 mg Furosemide (Lasix) 20 mg IVPUSH ONETIME ONE Stop: 04/12/19 12:01 Last Admin: 04/12/19 12:09 Dose: 20 mg Furosemide (Lasix) 20 mg IVPUSH ONETIME ONE Stop: 04/12/19 20:31 Last Admin: 04/12/19 20:53 Dose: 20 mg Furosemide (Lasix) 40 mg IVPUSH NOW ONE Stop: 04/14/19 10:51 Last Admin: 04/14/19 12:19 Dose: 40 mg Furosemide (Lasix) 40 mg IVPUSH NOW ONE Stop: 04/15/19 14:19 Hydrocortisone Sodium Succinate (Solu-Cortef) 100 mg IVPUSH ONETIME ONE Stop: 04/10/19 09:01 Last Admin: 04/10/19 09:52 Dose: 100 mg Hydrocortisone Sodium Succinate (Solu-Cortef) 100 mg IVPUSH ONETIME ONE Stop: 04/10/19 18:01 Last Admin: 04/10/19 17:16 Dose: 100 mg Hydrocortisone Sodium Succinate (Solu-Cortef) 100 mg IVPUSH ONETIME ONE Stop: 04/11/19 11:16 Last Admin: 04/11/19 13:07 Dose: 100 mg Lactated Ringer's (Ringers, Lactated) 1,000 mls @ 999 mls/hr IV ASDIRECTED [facility] Last Admin: 04/09/19 15:47 Dose: 999 mls/hr Piperacillin/Tazobactam/ (Dextrose 4.5 gm/ Premix) 100 mls @ 200 mls/hr IV NOW STA Stop: 04/09/19 15:53 Last Admin: 04/09/19 15:46 Dose: 200 mls/hr Vancomycin HCl 1 gm/ Sodium (Chloride) 250 mls @ 150 mls/hr IV ONETIME ONE Stop: 04/09/19 18:13 Last Admin: 04/09/19 16:50 Dose: 150 mls/hr Lactated Ringer's (Ringers, Lactated) 1,000 mls @ 999 mls/hr IV ASDIRECTED [facility] Stop: 04/09/19 18:01 Piperacillin Sod/Tazobactam (Sod 3.375 gm/ Sodium Chloride) 50 mls @ 100 mls/ hr IV Q6H [facility] Last Admin: 04/10/19 03:19 Dose: 100 mls/hr Sodium Chloride (Normal Saline) 1,000 mls @ 125 mls/hr IV ASDIRECTED [facility] Last Admin: 04/10/19 04:49 Dose: 125 mls/hr Lactated Ringer's (Ringers, Lactated) 1,000 mls @ 999 mls/hr IV BOLUS [facility] Last Infusion: 04/10/19 00:10 Dose: Infused Lactated Ringer's (Ringers, Lactated) 1,000 mls @ 999 mls/hr IV BOLUS [facility] Last Admin: 04/10/19 00:59 Dose: 999 mls/hr Vancomycin HCl 1 gm/ Sodium (Chloride) 250 mls @ 167 mls/hr IV Q24H [facility] Last Admin: 04/11/19 16:21 Dose: 167 mls/hr Piperacillin/Tazobactam/ (Dextrose 2.25 gm/ Premix) 50 mls @ 100 mls/hr IV Q6H [facility] Multivitamins/Minerals 10 ml/Chromium/Copper/Manganese/Seleni/Zn 1 ml/ Thiamine HCl 100 mg/ Dextrose/Lactated Ringer's 1,012 mls @ 125 mls/hr IV Q8H [facility] Stop: 04/11/19 01:29 Last Admin: 04/10/19 11:31 Dose: Not Given Dextrose/Lactated Ringer's (Dextrose 5%-Lactated Ringers) 1,000 mls @ 125 mls/ hr IV ASDIRECTED [facility] Lactated Ringer's (Ringers, Lactated) 1,000 mls @ 999 mls/hr IV BOLUS ONE Stop: 04/10/19 09:34 Last Admin: 04/10/19 09:50 Dose: 999 mls/hr Meropenem 500 mg/ Sodium (Chloride) 50 mls @ 100 mls/hr IV Q12H [facility] Last Admin: 04/12/19 09:38 Dose: 100 mls/hr Sodium Chloride (Normal Saline) 1,000 mls @ 100 mls/hr IV ASDIRECTED [facility] Last Admin: 04/12/19 08:30 Dose: 100 mls/hr Albumin Human (Albumin 25%) 25 gm in 100 mls @ 25 mls/hr IV ONETIME ONE Stop: 04/10/19 20:28 Last Admin: 04/10/19 17:10 Dose: 25 mls/hr Magnesium Sulfate 2 gm/ Premix 50 mls @ 25 mls/hr IV Q6H [facility] Stop: 04/13/19 03:59 Last Admin: 04/12/19 10:27 Dose: 25 mls/hr Aztreonam 1 gm/ Sodium (Chloride) 50 mls @ 100 mls/hr IV Q8H [facility] Last Admin: 04/12/19 10:27 Dose: 100 mls/hr Ciprofloxacin/Dextrose 400 mg/ (Premix) 200 mls @ 200 mls/hr IV Q24H [facility] Last Admin: 04/14/19 12:25 Dose: 200 mls/hr Metoclopramide HCl (Reglan) 10 mg PO WITHMEALSANDBED [facility] Last Admin: 04/09/19 22:38 Dose: 10 mg Metoclopramide HCl (Reglan) Confirm Administered Dose 10 mg .ROUTE .STK-MED ONE Stop: 04/09/19 22:25 Last Admin: 04/09/19 23:57 Dose: Not Given Metoclopramide HCl (Reglan) 10 mg PO WITHMEALSANDBED [facility] Last Admin: 04/11/19 13:07 Dose: 10 mg - Exam General: Alert, Oriented, Cooperative, Mild Distress Lungs: Clear to Auscultation, Normal Respiratory Effort Cardiovascular: Regular Rate, Regular Rhythm, No Murmurs GI/Abdominal Exam: Soft, Non-Tender, No Organomegaly, No Distention - Problem List Review Problem List Initiated/Reviewed/Updated: Yes - My Orders Last 24 Hours: My Active Orders 04/15/19 14:21 Cardiac Monitoring [RC] .As Directed 04/15/19 14:30 Pindolol [Pindolol] 5 mg PO DAILY 04/15/19 21:00 Ranitidine [Zantac] 150 mg PO BEDTIME 04/16/19 05:00 BASIC METABOLIC PANEL,BMP [CHEM] Timed CBC WITH AUTO DIFF [HEME] Timed - Plan Plan:: ASSESSMENT AND PLAN - Olvera catheter-related infection with sepsis - symptomatic after her Olvera catheter was flushed prior to admission removed 04/10. Sepsis and fever have resolved, white blood cell count now most within normal range. Cultures from blood and catheter tip grew out Enterobacter which has potential to develop resistance to beta-lactam antibiotics. Follow-up blood cultures remain negative -Continue ciprofloxacin, previous allergy reviewed with patient and risks are outweighed by the benefits at this time -patient will need a total of 2 weeks of IV antibiotics with bacteremia (04/11-) -Acetaminophen as needed for fever -Saline lock IV -PICC line today -Physical therapy Fluid retention -Furosemide 40 mg IV today -Reassess in a.m. Acute kidney injury - further improvement in renal function over the last 24 hours -Labs in the morning GIST - Diagnosed recently. She is status post surgical resection. -Outpatient follow-up in [place] Maintenance issues - - DVT prophylaxis - mechanical - GI prophylaxis - PPI - Nutrition - Regular diet - Yip catheter - Not indicated Disposition - I would anticipate discharge home with home care versus subacute rehabilitation after the hospital stay Primary care physician - Khoi CHAMBERS
[2019-04-15] MEDS ORDERED: Ciprofloxacin in D5W 400 MG in Premix Bag 1 BAG IV ONE ×2 (15:15)
[2019-04-15] MEDS: Pindolol 10 MG Tab PO SCH (15:44)
[2019-04-15] MEDS: Acetaminophen 325 MG Tab PO PRN (20:14)
[2019-04-15] MEDS: Melatonin 3 MG Tab PO SCH (21:34)
[2019-04-16] MEDS: Acyclovir 200 MG Cap PO SCH ×2 (03:16→12:32)
[2019-04-16] MEDS: Levothyroxine 50 MCG Tab PO SCH (07:37)
[2019-04-16] MEDS: Pantoprazole 40 MG Tab.CR PO SCH (07:37)
[2019-04-16] MEDS: Metoclopramide 10 MG Tab PO SCH ×2 (07:37→12:32)
[2019-04-16] MEDS: Lactobacillus Rhamnosus GG (Probiotic) Cap PO SCH (08:51)
[2019-04-16] MEDS: Potassium Chloride 20 MEQ Tab.ER PO SCH (08:51)
[2019-04-16] MEDS: MEGESTROL ACETATE PO SCH (08:54)
[2019-04-16] MEDS: SCOPOLAMINE PATCH CHECK TOP SCH (08:56)
[2019-04-16] MEDS: Pindolol 10 MG Tab PO SCH (08:57)
--- NOTE | 2019-04-16 08:58 | PN ---
DATE OF SERVICE: 04/16/2019 SUBJECTIVE: Gayatri reports that she is feeling about the same. Has been afebrile. Oral intake 1136. Output 4000. REVIEW OF SYSTEMS: Negative for any other pertinent positives and negatives. OBJECTIVE: GENERAL: Gayatri Styles is a pleasant 73-year-old female. VITAL SIGNS: TPR 97, 75, 18, blood pressure 124/59. HEENT: Negative. EXTREMITIES: Left upper extremity PICC line intact. HEART: Regular rate and rhythm. LUNGS: Clear. ABDOMEN: Negative. EXTREMITIES: Negative. ASSESSMENT: 1. Sepsis and fever, resolved. 2. Gastrointestinal stromal tumor. PLAN: Continue care as per Joseph Wilson MD. Surgery will continue to follow as needed. Tenisha Horton PA-C /[id number]
[2019-04-16] MEDS ORDERED: Ciprofloxacin in D5W 400 MG in Premix Bag 1 BAG IV SCH ×2 (10:00)
[2019-04-16 11:19] VITALS: BP 114/47; PULSE 81
--- NOTE | 2019-04-16 12:54 | PCM.DCSUM1 ---
Discharge Summary - Hospital Course Brief History: Ms. Styles is a 73-year-old woman who was admitted through the emergency department with weakness and fever secondary to sepsis and central venous catheter infection. - Discharge Data Discharge Date: 04/16/19 Discharge Disposition: DC/Tfer to SNF 03 Condition: Fair - Discharge Diagnosis/Problem(s) (1) FEDERICO (acute kidney injury) SNOMED Code(s): 79908657, 48431132 ICD Code: N17.9 - ACUTE KIDNEY FAILURE, UNSPECIFIED Status: Acute Current Visit: Yes (2) Sepsis SNOMED Code(s): 03396628 ICD Code: A41.9 - SEPSIS, UNSPECIFIED ORGANISM Status: Acute Current Visit: Yes Qualifiers: Sepsis type: sepsis due to unspecified organism Qualified Code(s): A41.9 - Sepsis, unspecified organism (3) Catheter-related bloodstream infection SNOMED Code(s): 908049345 ICD Code: T80.211A - BLOODSTREAM INFECTION DUE TO CENTRAL VENOUS CATHETER, INIT Status: Suspected Current Visit: Yes Qualifiers: Encounter type: initial encounter Qualified Code(s): T80.211A - Bloodstream infection due to central venous catheter, initial encounter (4) 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 SNOMED Code(s): 173665222, 270906124 ICD Code: C49.A2 - GASTROINTESTINAL STROMAL TUMOR OF STOMACH Status: Chronic Current Visit: No (5) History of partial gastrectomy SNOMED Code(s): 102646228877861 ICD Code: Z90.3 - ACQUIRED ABSENCE OF STOMACH [PART OF] Status: Chronic Current Visit: No - Patient Summary/Data Consults: Consultations 04/09/19 17:59 Consult to Physician [CONS] Routine Consulting Provider: Joseph Salazar Call Completed to Consulting Physician: Yes Reason for Consult: suspected Olvera infection Person Notified: LUIS 04/13/19 07:42 Consult to Dietary [Consult to Employment Evaluator/Case Manager] [CONS] Routine Comment: Physician Instructions: Quantity: Special Instructions: plan to increase calories and protein intake 04/14/19 07:00 PT Evaluation and Treatment [CONS] Routine Please Evaluate and Treat. PT Reason for Consult: Strengthening This query below is only for informational purposes and is not editable. Admission Diagnosis/Problem: Catheter-related bloodstream infection Hospital Course: Ms. Styles presented to the emergency room today with shaking chills, back and pelvis pain and nausea. She reports a similar mild episode about one week ago after her Olvera catheter was flushed. Symptoms resolved after one hour. She has felt fine other than a poor appetite until today when she had her Olvera flushed again. Shortly after the catheter was flushed developed nausea as well as shaking chills and pain throughout her spine and into her pelvis. She describes moderate achy pain throughout her spine as well as the posterior part of her pelvis. The pain does not radiate. She has had Tylenol but this has not provided much benefit. Moving around makes the pain more intense. She had similar but less intense pain one week ago after her Olvera flush. Appetite has been poor since her surgery but this has been stable. No complaints of shortness of breath, cough or diarrhea. She has not had any urinary symptoms such as frequency or dysuria. No skin rashes. She does have a mild posterior headache. Workup in the emergency room is concerning for sepsis with fever, tachycardia, tachypnea and lactic acidosis. Suspected site of infection is her Olvera catheter. She has received 1 L of IV fluids and will be receiving a second. Cultures have been obtained and she is receiving broad-spectrum antibiotics. She'll be admitted for further management. On admission she was given further IV fluids and was continued on broad- spectrum antibiotic therapy pending culture results. She did have ongoing difficulty with sepsis and hypotension that did respond to fluid boluses as well as IV steroids. Unfortunately because of lower blood pressure she did develop acute kidney injury that gradually improved during hospital stay but had not yet returned to baseline by the time of discharge. She was seen and evaluated by Dr. Salazar for surgical consult in the Olvera catheter was removed on the day after admission. Blood cultures did turn positive for Enterobacter and she was switched IV antibiotic therapy with ciprofloxacin, dose adjusted because of her decreased kidney function. She did have some difficulty with fluid retention and was treated with IV diuretic therapy prior to discharge with improvement in edema but not total resolution. She had a slight bump in creatinine from her previous stay on the day of discharge and renal function will be monitored on an outpatient basis. Second set of blood cultures were obtained and remained negative up until the time of discharge. Her hospital course was complicated by development of shingles on her right face and she was started on a 5 day course of acyclovir 800 mg every 8 hours. Dose of this medication was also adjusted because of her renal insufficiency. PICC line was placed on the day prior to discharge and she will continue to receive IV ciprofloxacin for a total course of 14 days. Follow-up appointment has been scheduled with Dr. Salazar for April 23 and she will be followed at the [facility] as needed. Follow-up laboratory studies including a BMP and CBC will be obtained on April 22. - Patient Instructions Diet: Usual Diet as Tolerated Activity: As Tolerated Other/Special Instructions: Please obtain laboratory studies on April 22 ; BMP and CBC - Discharge Plan *PRESCRIPTION DRUG MONITORING PROGRAM REVIEWED*: Not Applicable *COPY OF PRESCRIPTION DRUG MONITORING REPORT IN PATIENT [place]: Not Applicable Prescriptions/Med Rec: Acyclovir 800 mg PO Q8H #9 tablet Ciprofloxacin in D5W [Ciprofloxacin-D5W] 400 mg IV Q24H #9 bag Iron Polysaccharide Complex [Iferex 150] 150 mg PO BID #60 capsule Lactobacillus Rhamnosus GG [Culturelle] 1 cap PO BID #60 cap Home Medications: Home Meds Albuterol [Ventolin HFA] 2 puff INH QID PRN 03/15/19 [History] Ascorbic Acid 500 mg PO BID 03/15/19 [History] Calcium Carbonate/Vitamin D3 [Calcium 600 + Vit D 200] 1 tab PO BID 03/15/19 [ History] Cholecalciferol (Vitamin D3) [Vitamin D3] 1,000 unit PO DAILY 03/15/19 [History] Cyanocobalamin (Vitamin B-12) [Vitamin B-12] 1,000 mcg PO DAILY 03/15/19 [ History] Fish Oil/[place]-3 Fatty Acids [Fish Oil 1,000 MG] 1 gm PO DAILY 03/15/19 [History ] Levothyroxine [Synthroid] 50 mcg PO DAILY 03/15/19 [History] Megestrol Acetate [Megace Es] 1 dose PO DAILY 03/15/19 [History] Multivitamin [Multi-Vitamin Daily] 1 tab PO DAILY 03/15/19 [History] Omeprazole 40 mg PO DAILY 03/15/19 [History] Papaya [Papaya Enzyme] 1 tab PO TID 03/15/19 [History] Pindolol 5 mg PO DAILY 03/15/19 [History] Triamcinolone Acetonide [Triamcinolone Acetonide 0.1% Crm] 1 applic TOP BID PRN 03/15/19 [History] raNITIdine HCl [Zantac] 150 mg PO BEDTIME 03/15/19 [History] Acetaminophen [Tylenol] 650 mg PO Q6H tablet 03/26/19 [Rx] Docusate Sodium [Colace] 100 mg PO BID cap 03/26/19 [Rx] Metoclopramide HCl [Reglan] 10 mg PO Q6HR #28 tablet 03/26/19 [Rx] Metoclopramide [Reglan] 10 mg PO WITHMEALSANDBED #28 ml 03/26/19 [Rx] Scopolamine [Transderm-Scop] 1.5 mg TRDERM Q72H PRN #6 patch 03/26/19 [Rx] Acyclovir 800 mg PO Q8H #9 tablet 04/16/19 [Rx] Ciprofloxacin in D5W [Ciprofloxacin-D5W] 400 mg IV Q24H #9 bag 04/16/19 [Rx] Iron Polysaccharide Complex [Iferex 150] 150 mg PO BID #60 capsule 04/16/19 [Rx] Lactobacillus Rhamnosus GG [Culturelle] 1 cap PO BID #60 cap 04/16/19 [Rx] Referrals: Mery Gracia MD [Primary Care Provider] - Joseph Salazar MD [Physician] - 04/23/19 11:45 am (Please arrive 15 minutes early to register for your appointment.) - Discharge Summary/Plan Comment DC Time >30 min.: No - Patient Data Vitals - Most Recent: Last Vital Signs Temp 96.8 F 04/16/19 10:39 Pulse 81 04/16/19 10:39 Resp 18 04/16/19 10:39 BP 114/47 L 04/16/19 10:39 Pulse Ox 94 L 04/16/19 10:39 Weight - Most Recent: 114 lb 15.996 oz I&O - Last 24 hours: Intake & Output 04/15/19 04/16/19 04/16/19 22:59 06:59 14:59 Intake Total 240 240 Output Total 2800 800 450 Balance -2560 -560 -450 Lab Results - Last 24 hrs: Laboratory Results - last 24 hr 04/16/19 04/16/19 Range/Units 05:43 05:43 WBC 10.9 (4.5-11.0) K/uL RBC 3.30 (3.30-5.50) M/uL Hgb 9.4 L (12.0-15.0) g/dL Hct 28.3 L (36.0-48.0) % MCV 86 (80-98) fL MCH 29 (27-31) pg MCHC 33 (32-36) % Plt Count 224 (150-400) K/uL Add Manual Diff Yes Neutrophils % (Manual) 48 (36-66) % Lymphocytes % (Manual) 31 (24-44) % Monocytes % (Manual) 15 H (2-6) % Eosinophils % (Manual) 6 H (2-4) % Sodium 140 (140-148) mmol/L Potassium 4.4 (3.6-5.2) mmol/L Chloride 108 (100-108) mmol/L Carbon Dioxide 23 (21-32) mmol/L Anion Gap 9.0 (5.0-14.0) mmol/L BUN 37 H (7-18) mg/dL Creatinine 2.3 H (0.6-1.0) mg/dL Est Cr Clr Drug Dosing 18.47 mL/min Estimated GFR (MDRD) 21 L (>60) Glucose 85 (74-106) mg/dL Calcium 8.3 L (8.5-10.1) mg/dL ASHLEY Results - Last 24 hrs: Microbiology 04/13/19 04:30 Aerobic Blood Culture - Preliminary Blood NO GROWTH AFTER 3 DAYS Anaerobic Blood Culture - Preliminary NO GROWTH AFTER 3 DAYS Med Orders - Current: Current Medications Acetaminophen (Tylenol) 650 mg PO Q4H PRN PRN Reason: Pain (Mild 1-3)/fever Last Admin: 04/15/19 20:14 Dose: 650 mg Acyclovir (Zovirax) 800 mg PO Q8H SUELLEN Last Admin: 04/16/19 12:32 Dose: 800 mg Albuterol (Proventil Neb Soln) 2.5 mg NEB Q4H PRN PRN Reason: Shortness Of Breath/wheezing Last Admin: 04/12/19 08:33 Dose: 2.5 mg Ciprofloxacin/Dextrose 400 mg/ (Premix) 200 mls @ 200 mls/hr IV Q24H SUELLEN Last Admin: 04/16/19 09:53 Dose: 200 mls/hr Lactobacillus Rhamnosus (Culturelle) 1 cap PO BID [facility] Last Admin: 04/16/19 08:51 Dose: 1 cap Levothyroxine Sodium (Synthroid) 50 mcg PO DAILY@0730 [facility] Last Admin: 04/16/19 07:37 Dose: 50 mcg Lorazepam (Ativan) 0.5 mg IVPUSH Q4H PRN PRN Reason: Nausea/Vomiting Magnesium Hydroxide (Milk Of Magnesia) 30 ml PO Q12H PRN PRN Reason: Constipation Melatonin (Melatonin) 9 mg PO BEDTIME [facility] Last Admin: 04/15/19 21:34 Dose: 9 mg Metoclopramide HCl (Reglan) 5 mg PO WITHMEALSANDBED [facility] Last Admin: 04/16/19 12:32 Dose: 5 mg Megestrol Acetate [ (Megace Es] 625mg/5ml) 0 dose PO DAILY [facility] Last Admin: 04/16/19 08:54 Dose: 5 dose Scopolamine Patch (Check) 0 each TOP DAILY [facility] Last Admin: 04/16/19 08:56 Dose: 1 each Ondansetron HCl (Zofran Odt) 4 mg PO Q6H PRN PRN Reason: Nausea able to take PO Last Admin: 04/09/19 18:38 Dose: 4 mg Ondansetron HCl (Zofran) 4 mg IV Q6H PRN PRN Reason: Nausea/Vomiting Oxycodone HCl (Oxycodone) 5 mg PO Q4H PRN PRN Reason: Pain Pantoprazole Sodium (Protonix) 40 mg PO ACBREAKFAST [facility] Last Admin: 04/16/19 07:37 Dose: 40 mg Pindolol (Pindolol) 5 mg PO DAILY [facility] Last Admin: 04/16/19 08:57 Dose: 5 mg Potassium Chloride (Klor-Con M20) 40 meq PO DAILY [facility] Last Admin: 04/16/19 08:51 Dose: 40 meq Ranitidine HCl (Zantac) 150 mg PO BEDTIME [facility] Last Admin: 04/15/19 21:35 Dose: 150 mg Scopolamine (Transderm-Scop) 1.5 mg TOP Q72H [facility] Last Admin: 04/15/19 08:56 Dose: 1.5 mg Senna/Docusate Sodium (Senna Plus) 1 tab PO BID PRN PRN Reason: Constipation Discontinued Medications Acetaminophen (Tylenol) 650 mg PO NOW ONE Stop: 04/09/19 15:55 Last Admin: 04/09/19 15:59 Dose: 650 mg Furosemide (Lasix) 20 mg IVPUSH ONETIME ONE Stop: 04/12/19 12:01 Last Admin: 04/12/19 12:09 Dose: 20 mg Furosemide (Lasix) 20 mg IVPUSH ONETIME ONE Stop: 04/12/19 20:31 Last Admin: 04/12/19 20:53 Dose: 20 mg Furosemide (Lasix) 40 mg IVPUSH NOW ONE Stop: 04/14/19 10:51 Last Admin: 04/14/19 12:19 Dose: 40 mg Furosemide (Lasix) 40 mg IVPUSH NOW ONE Stop: 04/15/19 14:19 Last Admin: 04/15/19 15:49 Dose: 40 mg Hydrocortisone Sodium Succinate (Solu-Cortef) 100 mg IVPUSH ONETIME ONE Stop: 04/10/19 09:01 Last Admin: 04/10/19 09:52 Dose: 100 mg Hydrocortisone Sodium Succinate (Solu-Cortef) 100 mg IVPUSH ONETIME ONE Stop: 04/10/19 18:01 Last Admin: 04/10/19 17:16 Dose: 100 mg Hydrocortisone Sodium Succinate (Solu-Cortef) 100 mg IVPUSH ONETIME ONE Stop: 04/11/19 11:16 Last Admin: 04/11/19 13:07 Dose: 100 mg Lactated Ringer's (Ringers, Lactated) 1,000 mls @ 999 mls/hr IV ASDIRECTED [facility] Last Admin: 04/09/19 15:47 Dose: 999 mls/hr Piperacillin/Tazobactam/ (Dextrose 4.5 gm/ Premix) 100 mls @ 200 mls/hr IV NOW STA Stop: 04/09/19 15:53 Last Admin: 04/09/19 15:46 Dose: 200 mls/hr Vancomycin HCl 1 gm/ Sodium (Chloride) 250 mls @ 150 mls/hr IV ONETIME ONE Stop: 04/09/19 18:13 Last Admin: 04/09/19 16:50 Dose: 150 mls/hr Lactated Ringer's (Ringers, Lactated) 1,000 mls @ 999 mls/hr IV ASDIRECTED [facility] Stop: 04/09/19 18:01 Piperacillin Sod/Tazobactam (Sod 3.375 gm/ Sodium Chloride) 50 mls @ 100 mls/ hr IV Q6H [facility] Last Admin: 04/10/19 03:19 Dose: 100 mls/hr Sodium Chloride (Normal Saline) 1,000 mls @ 125 mls/hr IV ASDIRECTED [facility] Last Admin: 04/10/19 04:49 Dose: 125 mls/hr Lactated Ringer's (Ringers, Lactated) 1,000 mls @ 999 mls/hr IV BOLUS [facility] Last Infusion: 04/10/19 00:10 Dose: Infused Lactated Ringer's (Ringers, Lactated) 1,000 mls @ 999 mls/hr IV BOLUS [facility] Last Admin: 04/10/19 00:59 Dose: 999 mls/hr Vancomycin HCl 1 gm/ Sodium (Chloride) 250 mls @ 167 mls/hr IV Q24H [facility] Last Admin: 04/11/19 16:21 Dose: 167 mls/hr Piperacillin/Tazobactam/ (Dextrose 2.25 gm/ Premix) 50 mls @ 100 mls/hr IV Q6H [facility] Multivitamins/Minerals 10 ml/Chromium/Copper/Manganese/Seleni/Zn 1 ml/ Thiamine HCl 100 mg/ Dextrose/Lactated Ringer's 1,012 mls @ 125 mls/hr IV Q8H [facility] Stop: 04/11/19 01:29 Last Admin: 04/10/19 11:31 Dose: Not Given Dextrose/Lactated Ringer's (Dextrose 5%-Lactated Ringers) 1,000 mls @ 125 mls/ hr IV ASDIRECTED [facility] Lactated Ringer's (Ringers, Lactated) 1,000 mls @ 999 mls/hr IV BOLUS ONE Stop: 04/10/19 09:34 Last Admin: 04/10/19 09:50 Dose: 999 mls/hr Meropenem 500 mg/ Sodium (Chloride) 50 mls @ 100 mls/hr IV Q12H [facility] Last Admin: 04/12/19 09:38 Dose: 100 mls/hr Sodium Chloride (Normal Saline) 1,000 mls @ 100 mls/hr IV ASDIRECTED [facility] Last Admin: 04/12/19 08:30 Dose: 100 mls/hr Albumin Human (Albumin 25%) 25 gm in 100 mls @ 25 mls/hr IV ONETIME ONE Stop: 04/10/19 20:28 Last Admin: 04/10/19 17:10 Dose: 25 mls/hr Magnesium Sulfate 2 gm/ Premix 50 mls @ 25 mls/hr IV Q6H [facility] Stop: 04/13/19 03:59 Last Admin: 04/12/19 10:27 Dose: 25 mls/hr Aztreonam 1 gm/ Sodium (Chloride) 50 mls @ 100 mls/hr IV Q8H [facility] Last Admin: 04/12/19 10:27 Dose: 100 mls/hr Ciprofloxacin/Dextrose 400 mg/ (Premix) 200 mls @ 200 mls/hr IV Q24H [facility] Last Admin: 04/14/19 12:25 Dose: 200 mls/hr Ciprofloxacin/Dextrose 400 mg/ (Premix) 200 mls @ 200 mls/hr IV ONETIME ONE Stop: 04/15/19 16:14 Last Admin: 04/15/19 15:43 Dose: 200 mls/hr Metoclopramide HCl (Reglan) 10 mg PO WITHMEALSANDBED [facility] Last Admin: 04/09/19 22:38 Dose: 10 mg Metoclopramide HCl (Reglan) Confirm Administered Dose 10 mg .ROUTE .STK-MED ONE Stop: 04/09/19 22:25 Last Admin: 04/09/19 23:57 Dose: Not Given Metoclopramide HCl (Reglan) 10 mg PO WITHMEALSANDBED [facility] Last Admin: 04/11/19 13:07 Dose: 10 mg - Exam Quality Assessment: Reports: Central Line/PICC, DVT Prophylaxis General: Reports: Alert, Oriented, Cooperative, No Acute Distress Lungs: Reports: Clear to Auscultation, Normal Respiratory Effort Cardiovascular: Reports: Regular Rate, Regular Rhythm, No Murmurs GI/Abdominal Exam: Soft, Non-Tender, No Organomegaly, No Distention Extremities: Non-Tender, Pedal Edema
== END 2019-04-16 13:43 | DRG 314 ==
LOC: JP.ED 14:51 → JP.MS 16:57
PROVIDERS: ADMIT Internal Medicine; ATTEND Hospitalist
PROC: 05PYX3Z Removal of Infusion Device from Upper Vein, External Approach (ICD-10-PCS; principal; 2019-04-10)
PROC: 05HY33Z Insertion of Infusion Device into Upper Vein, Percutaneous Approach (ICD-10-PCS; 2019-04-15)
DX: T80.211A Bloodstream infection due to central venous catheter, initial encounter (principal); A41.89 Other specified sepsis; R65.20 Severe sepsis without septic shock; E87.2 Acidosis; C49.A2 Gastrointestinal stromal tumor of stomach; N17.9 Acute kidney failure, unspecified; Y84.8 Other medical procedures as the cause of abnormal reaction of the patient, or of later complication, without mention of misadventure at the time of the procedure; A41.9 Sepsis, unspecified organism; H54.7 Unspecified visual loss; K21.9 Gastro-esophageal reflux disease without esophagitis; M54.9 Dorsalgia, unspecified; G89.29 Other chronic pain; M19.90 Unspecified osteoarthritis, unspecified site; E03.9 Hypothyroidism, unspecified; D64.9 Anemia, unspecified; R60.9 Edema, unspecified; R06.02 Shortness of breath; E53.8 Deficiency of other specified B group vitamins; R50.9 Fever, unspecified; B02.9 Zoster without complications; R42 Dizziness and giddiness; Z88.1 Allergy status to other antibiotic agents; Z88.5 Allergy status to narcotic agent; Z88.2 Allergy status to sulfonamides; Z87.440 Personal history of urinary (tract) infections; Z90.710 Acquired absence of both cervix and uterus; Z88.8 Allergy status to other drugs, medicaments and biological substances; Z79.899 Other long term (current) drug therapy; Z90.81 Acquired absence of spleen; Z79.890 Hormone replacement therapy
CPT/HCPCS: 36415; 71045; 80053; 83605; 85025; 86140; 87040 ×2; 87077; 87186; 96365; 96375; 99284 ×2; A9270; J2543; J3370; J7050; J7120; 71046; 80048; 81001; 83735; 84100; 85027; 86850; 86900; 86901; 86920; 86922; 87070; 87086; 94640; 97110-GP; 97162-GP; 97530-GP; 97535-GP; C1751; J0744; J1720; J1940; J2185; J3475; J3490; J7030; P9047

== ENCOUNTER 2019-04-17 16:16 | Emergency (ER) | payer MEDICARE, BC ==
[2019-04-17 16:50] VITALS: BP 128/62; PULSE 73
[2019-04-17] MEDS ORDERED: Sodium Chloride 0.9% 10 ML Syringe FLUSH ONE (17:06)
--- NOTE | 2019-04-17 20:24 | EDM.PDOC ---
ED HPI GENERAL MEDICAL PROBLEM - General Chief Complaint: General Stated Complaint: PIC LINE USSUES Time Seen by Provider: 04/17/19 17:00 Source of Information: Reports: Patient History Limitations: Reports: No Limitations - History of Present Illness INITIAL COMMENTS - FREE TEXT/NARRATIVE: [facility] She has a pic line in her left arm which is not funtioning well. Onset: Today Duration: Hour(s): Location: Reports: Upper Extremity, Left Associated Symptoms: Reports: No Other Symptoms - Related Data Allergies Allergy/AdvReac Type Severity Reaction Status Date / Time clopidogrel Allergy Unknown Rash Verified 04/17/19 16:56 erythromycin base Allergy Unknown Rash Verified 04/17/19 16:56 [Erythromycin Base] Sulfa (Sulfonamide AdvReac Unknown Rash Verified 04/17/19 16:56 Antibiotics) ciprofloxacin AdvReac Muscle Verified 04/17/19 16:56 Aches hydromorphone [From Dilaudid] AdvReac Nausea Verified 04/17/19 16:56 hyoscyamine AdvReac Dizziness Verified 04/17/19 16:56 levofloxacin [From Levaquin] AdvReac Muscle Verified 04/17/19 16:56 Aches Home Meds: Home Meds Albuterol [Ventolin HFA] 2 puff INH QID PRN 03/15/19 [History] Ascorbic Acid 500 mg PO BID 03/15/19 [History] Calcium Carbonate/Vitamin D3 [Calcium 600 + Vit D 200] 1 tab PO BID 03/15/19 [ History] Cholecalciferol (Vitamin D3) [Vitamin D3] 1,000 unit PO DAILY 03/15/19 [History] Cyanocobalamin (Vitamin B-12) [Vitamin B-12] 1,000 mcg PO DAILY 03/15/19 [ History] Fish Oil/[place]-3 Fatty Acids [Fish Oil 1,000 MG] 1 gm PO DAILY 03/15/19 [History ] Levothyroxine [Synthroid] 50 mcg PO DAILY 03/15/19 [History] Megestrol Acetate [Megace Es] 1 dose PO DAILY 03/15/19 [History] Multivitamin [Multi-Vitamin Daily] 1 tab PO DAILY 03/15/19 [History] Omeprazole 40 mg PO DAILY 03/15/19 [History] Papaya [Papaya Enzyme] 1 tab PO TID 03/15/19 [History] Pindolol 5 mg PO DAILY 03/15/19 [History] Triamcinolone Acetonide [Triamcinolone Acetonide 0.1% Crm] 1 applic TOP BID PRN 03/15/19 [History] raNITIdine HCl [Zantac] 150 mg PO BEDTIME 03/15/19 [History] Acetaminophen [Tylenol] 650 mg PO Q6H tablet 03/26/19 [Rx] Docusate Sodium [Colace] 100 mg PO BID cap 03/26/19 [Rx] Metoclopramide HCl [Reglan] 10 mg PO Q6HR #28 tablet 03/26/19 [Rx] Metoclopramide [Reglan] 10 mg PO WITHMEALSANDBED #28 ml 03/26/19 [Rx] Scopolamine [Transderm-Scop] 1.5 mg TRDERM Q72H PRN #6 patch 03/26/19 [Rx] Acyclovir 800 mg PO Q8H #9 tablet 04/16/19 [Rx] Ciprofloxacin in D5W [Ciprofloxacin-D5W] 400 mg IV Q24H #9 bag 04/16/19 [Rx] Iron Polysaccharide Complex [Iferex 150] 150 mg PO BID #60 capsule 04/16/19 [Rx] Lactobacillus Rhamnosus GG [Culturelle] 1 cap PO BID #60 cap 04/16/19 [Rx] Past Medical History HEENT History: Reports: Allergic Rhinitis, Impaired Vision Cardiovascular History: Reports: Other (See Below) Other Cardiovascular History: ASD closure, MITRAL VALVE THICKENING Gastrointestinal History: Reports: GERD, Hemorrhoids Genitourinary History: Reports: UTI, Recurrent Other Genitourinary History: pt ? having UTI CASKET INSPECTOR History: Reports: Dysfunctional Uterine Bleeding, Other CASKET INSPECTOR History: hx of hystectomy Musculoskeletal History: Reports: Back Pain, Chronic, Osteoarthritis Neurological History: Reports: Vertigo Psychiatric History: Reports: Depression Endocrine/Metabolic History: Reports: Hypothyroidism Hematologic History: Reports: Anemia, B12 Deficiency, Blood Transfusion(s), Iron Deficiency, Transfusion Reaction Oncologic (Cancer) History: Reports: Other (See Below) Other Oncologic History: ABDOMEN MASS Dermatologic History: Reports: Other (See Below) Other Dermatologic History: skin rashes - Infectious Disease History Infectious Disease History: Reports: Chicken Pox, Measles, Mumps - Past Surgical History Head Surgeries/Procedures: Reports: None HEENT Surgical History: Reports: Detached Retina Cardiovascular Surgical History: Reports: Other (See Below) Other Cardiovascular Surgeries/Procedures: ASD closure- 2012 GI Surgical History: Reports: Appendectomy, Colonoscopy, EGD, Other (See Below) Other GI Surgeries/Procedures: mass in stomach Female Surgical History: Reports: Hysterectomy, Salpingo-Oophorectomy Endocrine Surgical History: Reports: None Neurological Surgical History: Reports: None Musculoskeletal Surgical History: Reports: None Oncologic Surgical History: Reports: Other (See Below) Other Oncologic Surgeries/Procedures: MASS REMOVAL Dermatological Surgical History: Reports: None Social & Family History - Family History Family Medical History: Noncontributory - Tobacco Use Smoking Status *Q: Never Smoker - Caffeine Use Caffeine Use: Reports: None - Recreational Drug Use Recreational Drug Use: No ED ROS GENERAL - Review of Systems Review Of Systems: See Below Constitutional: Reports: No Symptoms HEENT: Reports: No Symptoms Respiratory: Reports: No Symptoms Cardiovascular: Reports: No Symptoms Endocrine: Reports: No Symptoms GI/Abdominal: Reports: No Symptoms : Reports: No Symptoms Musculoskeletal: Reports: Other (pic line is not working. ) ED EXAM, GENERAL - Physical Exam Exam: See Below Free Text/Narrative:: pt has a very slugish pic line. She was sent from the custodial to have it checkec. Exam Limited By: No Limitations General Appearance: Alert, Anxious, Mild Distress Extremities: Other ( An xray of the left chest and left arm was obtained . The pic line has pulled back and is curled ) Neurological: Alert, Oriented, Normal Cognition Psychiatric: Normal Affect, Depressed Mood Course - Vital Signs Last Recorded V/S: Last Vital Signs Temp 36.6 C 04/17/19 16:55 Pulse 73 04/17/19 16:55 Resp 16 04/17/19 16:55 BP 128/62 04/17/19 16:55 Pulse Ox 99 04/17/19 16:55 - Orders/Labs/Meds Orders: Active Orders 24 hr Category Date Time Status Chest 1V Frontal [CR] Stat Exams 04/17/19 18:31 Taken Heparin Sodium [Heparin Lock Flush 100 Units/ML] Med 04/17/19 17:06 Active 500 units FLUSH ASDIRECTED PRN Medication Orders Heparin Sodium (Porcine) (Heparin Lock Flush 100 Units/Ml) 500 units FLUSH ASDIRECTED PRN PRN Reason: picc line flush Last Admin: 04/17/19 17:13 Dose: 500 units Admin: 04/17/19 17:12 Dose: 500 units Meds: Medications Generic Name Dose Route Start Last Admin Trade Name Rylie PRN Reason Stop Dose Admin Heparin Sodium (Porcine) 500 units 04/17/19 17:06 04/17/19 17:13 Heparin Lock Flush 100 Units/Ml FLUSH 500 units ASDIRECTED PRN Administration picc line flush Discontinued Medications Generic Name Dose Route Start Last Admin Trade Name Rylie PRN Reason Stop Dose Admin Heparin Sodium (Porcine) Confirm 04/17/19 16:56 Heparin Lock Flush 100 Units/Ml Administered 04/17/19 16:57 Dose 1,000 units .ROUTE .STK-MED ONE Sodium Chloride 10 ml 04/17/19 17:06 04/17/19 17:12 Saline Flush FLUSH 04/17/19 17:07 10 ml ONETIME ONE Administration - Re-Assessments/Exams Free Text/Narrative Re-Assessment/Exam: 04/17/19 20:27 pt had a peripheral iv inserted . Her pic line on the left was pulled. She chose the periphwral iv at this time. Departure - Departure Time of Disposition: 20:29 Disposition: Home, Self-Care 01 Condition: Fair Clinical Impression: PIC line (peripherally inserted central catheter) flush - Discharge Information Referrals: Mery Gracia MD [Primary Care Provider] - Care Plan Goals: continue the same antibiotics, use the peripheral iv. - My Orders Last 24 Hours: My Active Orders 04/17/19 18:31 Chest 1V Frontal [CR] Stat - Assessment/Plan Last 24 Hours: My Active Orders 04/17/19 18:31 Chest 1V Frontal [CR] Stat
--- NOTE | 2019-04-17 21:21 | CRLCR ---
INDICATION: Malfunctioning PICC line. COMPARISON: 04/15/2019. FINDINGS: A portable AP view of the chest was obtained. The patient`s left arm PICC line is now looped in the left subclavian vein. The cardiac silhouette and pulmonary vasculature are within normal limits. There is scarring in the left lung base. The lungs otherwise are clear. IMPRESSION: Left arm PICC line looped within in the subclavian vein recommend repositioning. Dictated by Jared Diaz MD @ 04/17/2019 9:20:36 PM Dictated by: Jared Diaz MD @ 04/17/2019 21:20:49 (Electronically Signed)
== END 2019-04-17 20:40 | disposition home or self-care (01) ==
LOC: JP.ED 16:16
DX: Z45.2 Encounter for adjustment and management of vascular access device (principal); A41.9 Sepsis, unspecified organism; E03.9 Hypothyroidism, unspecified; Z88.8 Allergy status to other drugs, medicaments and biological substances; Z88.1 Allergy status to other antibiotic agents; Z88.5 Allergy status to narcotic agent; Z79.899 Other long term (current) drug therapy
CPT/HCPCS: 71045; 99283; J1642; 99282

== ENCOUNTER 2019-04-18 17:14 | Emergency (ER) | payer MEDICARE, BC ==
[2019-04-18] MEDS ORDERED: Sodium Chloride 0.9% 10 ML Syringe FLUSH PRN (17:22)
--- NOTE | 2019-04-18 17:24 | EDM.PDOC ---
ED HPI GENERAL MEDICAL PROBLEM - General Chief Complaint: General Stated Complaint: PICC ISSUES Time Seen by Provider: 04/18/19 17:22 Source of Information: Reports: Patient History Limitations: Reports: No Limitations - History of Present Illness INITIAL COMMENTS - FREE TEXT/NARRATIVE: Patient presents to ER due to peripheral IV access concerns. Patient is receiving IV antibiotic BID. PICC was removed yesterday and Peripheral line placed but has been non functional. Patient need current IV removed and IV access for continued IV Abx administration. Ciprofloxacin BID x 14 days after D/ C from hospital due to positive blood Culture. Patient has continued edema and was measured for compression stocking this am and deliver to the [facility]. Patient does not offer much in way of additional complains. - Related Data Allergies Allergy/AdvReac Type Severity Reaction Status Date / Time clopidogrel Allergy Unknown Rash Verified 04/17/19 16:56 erythromycin base Allergy Unknown Rash Verified 04/17/19 16:56 [Erythromycin Base] Sulfa (Sulfonamide AdvReac Unknown Rash Verified 04/17/19 16:56 Antibiotics) ciprofloxacin AdvReac Muscle Verified 04/17/19 16:56 Aches hydromorphone [From Dilaudid] AdvReac Nausea Verified 04/17/19 16:56 hyoscyamine AdvReac Dizziness Verified 04/17/19 16:56 levofloxacin [From Levaquin] AdvReac Muscle Verified 04/17/19 16:56 Aches Home Meds: Home Meds Albuterol [Ventolin HFA] 2 puff INH QID PRN 03/15/19 [History] Ascorbic Acid 500 mg PO BID 03/15/19 [History] Calcium Carbonate/Vitamin D3 [Calcium 600 + Vit D 200] 1 tab PO BID 03/15/19 [ History] Cholecalciferol (Vitamin D3) [Vitamin D3] 1,000 unit PO DAILY 03/15/19 [History] Cyanocobalamin (Vitamin B-12) [Vitamin B-12] 1,000 mcg PO DAILY 03/15/19 [ History] Fish Oil/Hendrum-3 Fatty Acids [Fish Oil 1,000 MG] 1 gm PO DAILY 03/15/19 [History ] Levothyroxine [Synthroid] 50 mcg PO DAILY 03/15/19 [History] Megestrol Acetate [Megace Es] 1 dose PO DAILY 03/15/19 [History] Multivitamin [Multi-Vitamin Daily] 1 tab PO DAILY 03/15/19 [History] Omeprazole 40 mg PO DAILY 03/15/19 [History] Papaya [Papaya Enzyme] 1 tab PO TID 03/15/19 [History] Pindolol 5 mg PO DAILY 03/15/19 [History] Triamcinolone Acetonide [Triamcinolone Acetonide 0.1% Crm] 1 applic TOP BID PRN 03/15/19 [History] raNITIdine HCl [Zantac] 150 mg PO BEDTIME 03/15/19 [History] Acetaminophen [Tylenol] 650 mg PO Q6H tablet 03/26/19 [Rx] Docusate Sodium [Colace] 100 mg PO BID cap 03/26/19 [Rx] Metoclopramide HCl [Reglan] 10 mg PO Q6HR #28 tablet 03/26/19 [Rx] Metoclopramide [Reglan] 10 mg PO WITHMEALSANDBED #28 ml 03/26/19 [Rx] Scopolamine [Transderm-Scop] 1.5 mg TRDERM Q72H PRN #6 patch 03/26/19 [Rx] Acyclovir 800 mg PO Q8H #9 tablet 04/16/19 [Rx] Ciprofloxacin in D5W [Ciprofloxacin-D5W] 400 mg IV Q24H #9 bag 04/16/19 [Rx] Iron Polysaccharide Complex [Iferex 150] 150 mg PO BID #60 capsule 04/16/19 [Rx] Lactobacillus Rhamnosus GG [Culturelle] 1 cap PO BID #60 cap 04/16/19 [Rx] Past Medical History HEENT History: Reports: Allergic Rhinitis, Impaired Vision Cardiovascular History: Reports: Other (See Below) Other Cardiovascular History: ASD closure, MITRAL VALVE THICKENING Gastrointestinal History: Reports: GERD, Hemorrhoids Genitourinary History: Reports: UTI, Recurrent Other Genitourinary History: pt ? having UTI PATIENT INFORMATION COORDINATOR History: Reports: Dysfunctional Uterine Bleeding, Other PATIENT INFORMATION COORDINATOR History: hx of hystectomy Musculoskeletal History: Reports: Back Pain, Chronic, Osteoarthritis Neurological History: Reports: Vertigo Psychiatric History: Reports: Depression Endocrine/Metabolic History: Reports: Hypothyroidism Hematologic History: Reports: Anemia, B12 Deficiency, Blood Transfusion(s), Iron Deficiency, Transfusion Reaction Oncologic (Cancer) History: Reports: Other (See Below) Other Oncologic History: ABDOMEN MASS Dermatologic History: Reports: Other (See Below) Other Dermatologic History: skin rashes - Infectious Disease History Infectious Disease History: Reports: Chicken Pox, Measles, Mumps - Past Surgical History Head Surgeries/Procedures: Reports: None HEENT Surgical History: Reports: Detached Retina Cardiovascular Surgical History: Reports: Other (See Below) Other Cardiovascular Surgeries/Procedures: ASD closure- 2012 GI Surgical History: Reports: Appendectomy, Colonoscopy, EGD, Other (See Below) Other GI Surgeries/Procedures: mass in stomach Female Surgical History: Reports: Hysterectomy, Salpingo-Oophorectomy Endocrine Surgical History: Reports: None Neurological Surgical History: Reports: None Musculoskeletal Surgical History: Reports: None Oncologic Surgical History: Reports: Other (See Below) Other Oncologic Surgeries/Procedures: MASS REMOVAL Dermatological Surgical History: Reports: None Social & Family History - Family History Family Medical History: Noncontributory - Caffeine Use Caffeine Use: Reports: None ED ROS GENERAL - Review of Systems Review Of Systems: ROS reveals no pertinent complaints other than HPI. ED EXAM, GENERAL - Physical Exam Exam: See Below Exam Limited By: No Limitations General Appearance: Alert, WD/WN, No Apparent Distress, Mild Distress Throat/Mouth: Other (abrasion corner of mouth ) Head: Normocephalic Neck: Full Range of Motion Respiratory/Chest: Lungs Clear, Normal Breath Sounds Cardiovascular: Regular Rate, Rhythm GI/Abdominal: Soft, Non-Tender Extremities: Other (IV noted in right forearm non-fuctioning. Small opne wound left upper inner arm from previous PICC site) Course - Vital Signs Last Recorded V/S: Last Vital Signs Temp 36.6 C 04/18/19 18:19 Pulse 77 04/18/19 18:19 Resp 16 04/18/19 18:19 BP 123/56 L 04/18/19 18:19 Pulse Ox 98 04/18/19 18:19 - Orders/Labs/Meds Orders: Active Orders 24 hr Category Date Time Status Peripheral IV Care [RC] . DIRECTED Care 04/18/19 17:22 Active Sodium Chloride 0.9% [Saline Flush] Med 04/18/19 17:22 Active 10 ml FLUSH ASDIRECTED PRN Central Line PICC Discontinue [OM.PC] Routine Oth 04/18/19 17:22 Ordered Peripheral IV Insertion Adult [OM.PC] Urgent Oth 04/18/19 17:22 Ordered Medication Orders Sodium Chloride (Saline Flush) 10 ml FLUSH ASDIRECTED PRN PRN Reason: Keep Vein Open Meds: Medications Generic Name Dose Route Start Last Admin Trade Name Freq PRN Reason Stop Dose Admin Sodium Chloride 10 ml 04/18/19 17:22 Saline Flush FLUSH ASDIRECTED PRN Keep Vein Open - Re-Assessments/Exams Free Text/Narrative Re-Assessment/Exam: IV removed by nursing staff. IV access was replaced. 04/18/19 18:29 Departure - Departure Time of Disposition: 18:30 Disposition: DC/Tfer to SNF 03 Condition: Good Clinical Impression: [place] (acute kidney injury) Sepsis Qualifiers: Sepsis type: sepsis due to unspecified organism Qualified Code(s): A41.9 - Sepsis, unspecified organism - Discharge Information Referrals: Mery Gracia MD [Primary Care Provider] - Forms: ED Department Discharge - Problem List & Annotations (1) [place] (acute kidney injury) SNOMED Code(s): 03358083, 80346339 Code(s): N17.9 - ACUTE KIDNEY FAILURE, UNSPECIFIED Status: Acute Current Visit: Yes (2) Sepsis SNOMED Code(s): 90306399 Code(s): A41.9 - SEPSIS, UNSPECIFIED ORGANISM Status: Acute Current Visit : Yes Qualifiers: Sepsis type: sepsis due to unspecified organism Qualified Code(s): A41.9 - Sepsis, unspecified organism (3) Catheter-related bloodstream infection SNOMED Code(s): 393395493 Code(s): T80.211A - BLOODSTREAM INFECTION DUE TO CENTRAL VENOUS CATHETER, INIT Status: Suspected Current Visit: No Qualifiers: Encounter type: initial encounter Qualified Code(s): T80.211A - Bloodstream infection due to central venous catheter, initial encounter - My Orders Last 24 Hours: My Active Orders 04/18/19 17:22 Peripheral IV Care [RC] . DIRECTED Sodium Chloride 0.9% [Saline Flush] 10 ml FLUSH ASDIRECTED PRN Central Line PICC Discontinue [OM.PC] Routine Peripheral IV Insertion Adult [OM.PC] Urgent - Assessment/Plan Last 24 Hours: My Active Orders 04/18/19 17:22 Peripheral IV Care [RC] . DIRECTED Sodium Chloride 0.9% [Saline Flush] 10 ml FLUSH ASDIRECTED PRN Central Line PICC Discontinue [OM.PC] Routine Peripheral IV Insertion Adult [OM.PC] Urgent Plan: Return to Longterm Facility. Continue previous hospitalization discharge orders. May use new right peripheral line right forearm extensor surface
[2019-04-18 18:19] VITALS: BP 123/56; PULSE 77
== END 2019-04-18 18:37 ==
LOC: JP.ED 17:14
DX: A41.9 Sepsis, unspecified organism (principal); R65.20 Severe sepsis without septic shock; N17.9 Acute kidney failure, unspecified; S41.102A Unspecified open wound of left upper arm, initial encounter; S00.512A Abrasion of oral cavity, initial encounter; D64.9 Anemia, unspecified; E03.9 Hypothyroidism, unspecified; Z90.49 Acquired absence of other specified parts of digestive tract; Z90.710 Acquired absence of both cervix and uterus; M19.90 Unspecified osteoarthritis, unspecified site; Z79.899 Other long term (current) drug therapy; Z88.1 Allergy status to other antibiotic agents; Z88.5 Allergy status to narcotic agent; Z88.2 Allergy status to sulfonamides; Z88.8 Allergy status to other drugs, medicaments and biological substances
CPT/HCPCS: 99283; 99284